=== PATIENT | female | born 1960 | race Caucasian/White ===

== ENCOUNTER 2023-10-06 13:44 | Outpatient (OUT) | payer OTHER, SELFPAY ==
--- NOTE | 2023-10-06 | MM_ITS ---
Patient Name: MATTHEW FRANCISCO MR#: [id number] : 1960 Exam Date: 10/06/2023 Ordering Doctor: DR MICHELLE DESAI M.D. RADIOLOGY REPORT PROCEDURE: MM TOMOSYNTHESIS SCREENING BI COMPARISON: MG MAMM SCREEN 3D DARIA CAD, 08/11/2021. MG MAMM SCREEN DARIA W CAD, 05/01/2019. INDICATIONS: Screening mammogram Calculator Name NCI Breast Cancer Risk Assessment Tool 5 Year Breast Cancer Risk 1.70% Lifetime Breast Cancer Risk 7.00% Personal Breast Cancer No Personal Ovarian Cancer No Treatments None Family Cancers None LOCATION: [facility] BREAST COMPOSITION: The breasts are heterogeneously dense,which may obscure small masses. FINDINGS: DIAGNOSTIC CATEGORY 1--NEGATIVE. NO CHANGE FROM COMPARISON ASSESSMENT. Scattered benign-appearing calcifications are present. RIGHT BREAST: No significant suspicious finding. LEFT BREAST: No significant suspicious finding. RECOMMENDATIONS: ROUTINE MAMMOGRAM AND CLINICAL EVALUATION IN 12 MONTHS. PLEASE NOTE: A NORMAL MAMMOGRAM DOES NOT EXCLUDE THE POSSIBILITY OF BREAST CANCER. A CLINICALLY SUSPICIOUS PALPABLE LUMP SHOULD BE BIOPSIED. Dictated by: Ady Waggoner MD on 10/09/2023 at 08:00 Approved by: Ady Waggoner MD on 10/09/2023 at 08:01
== END 2023-10-06 13:45 | disposition home or self-care (01) ==
LOC: MAMMO 13:45
PROVIDERS: PCP Internal Medicine; Visit Provider Internal Medicine
DX: Z12.31 Encounter for screening mammogram for malignant neoplasm of breast (principal)
CPT/HCPCS: 77063; 77067

== ENCOUNTER 2024-02-14 07:14 | Outpatient (OUT) | payer OTHER, SELFPAY ==
--- NOTE | 2024-02-14 | XR_ITS ---
The [address] [address] Patient Name: MATTHEW FRANCISCO MRN: [id number] date: 1960 Sex: F Assigned Patient Location: [facility] Current Patient Location: Accession/Order Number: [id number] Exam Date: 02/14/2024 07:35 Report Date: 02/16/2024 07:44 At the request of: MICHELLE DESAI Procedure: XR chest 2V PROCEDURE: XR chest 2V DATE: 02/14/2024 7:35 AM EST COMPARISONS: 08/17/2021 CLINICAL INDICATION: 63 years Female Cough FINDINGS: The cardiomediastinal silhouette and pulmonary vasculature are within normal limits. There is some chronic changes of the right lung base stable from previous exam. This results in slight tenting of the right hemidiaphragm. The lungs are otherwise clear. There is no evidence of pleural effusion or pneumothorax. XR/XR chest 2V IMPRESSION: Chronic lung changes right lung base, stable. Chest radiograph is otherwise within normal limits. Electronically authenticated by: KATELIN CARTER Date: 02/16/2024 07:44
== END 2024-02-14 07:15 | disposition home or self-care (01) ==
LOC: RAD 07:16
PROVIDERS: PCP Internal Medicine; Visit Provider Internal Medicine
DX: J43.1 Panlobular emphysema (principal); R63.4 Abnormal weight loss; R05.3 Chronic cough
CPT/HCPCS: 71046

== ENCOUNTER 2024-05-01 10:27 | Inpatient (IN) | payer OTHER, SELFPAY ==
[2024-05-01] VITALS (12 sets, daily range): BP systolic 115–161; BP diastolic 59–98; PULSE 90–101; TEMP 36.4–36.7; O2SAT 90–100; BMI 25.8; BMI 22.1
--- NOTE | 2024-05-01 10:44 | ECG_ITS ---
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
--- OUTSIDE RECORDS SUMMARY | 2024-05-01 10:50 | XMS_ITS | CCD ---
Author Organization [facility] Care Team Providers Care Corn Crop Supervisor Name Role Phone Jacob Frances Unavailable BAILEY Lee Primary Care Provider Colin Mann Attending Provider Hi, DR Jeffers Consulting Unavailable GISELLE, DR MARTINEZ Primary Care Unavailable SEA KAHN Attending Unavailable CRISS, SEA Admitting Unavailable SEA KAHN Consulting Unavailable BRENNEN, DR SHERON Marin Admitting Unavailable DORIAN, DR KURT Partida Consulting Unavailable GISELLE, DR MARTINEZ Primary Care Unavailable BRENNEN, DR SHERON Marin Attending Unavailable HEMJOSE, DR SHERON Marin Consulting Unavailable GISELLE, DR MARTINEZ Attending Unavailable GISELLE, DR MARTINEZ Consulting Unavailable GISELLE, DR MARTINEZ Primary Care Unavailable GISELLE, DR MARTINEZ Admitting Unavailable Hi, DR Jeffers Consulting Unavailable ANJEL, DR MARK Attending Unavailable ANJEL, DR MARK Admitting Unavailable GISELLE, DR MARTINEZ Primary Care Unavailable JUSTIN OSUNA Consulting Unavailable Colin Lee MD Primary Care Provider Colin Mann Attending Unavailable Colin Mann Admitting Unavailable Colin Lee Primary Care Unavailable SHERON HUTTON Attending Unavailable COLIN LEE Attending Unavailable SHERON HUTTON Attending Unavailable COLIN LEE Attending Unavailable COLIN LEE Attending Unavailable COLIN LEE Attending Unavailable COLIN LEE Attending Unavailable Allergies Allergy Classification Reported Allergen(s) Allergy Type Date of Onset Reaction(s) Facility (3 sources) Esomeprazole Drug Allergy 04-18-19 25 Unknown, Unknown Reaction [facility] (2 sources) Penicillins (Antibiotic) Propensity to adverse reactions anaphylaxis [facility] [employer] Other (1 source) Esomeprazole Drug Allergy 04-18-19 14 [facility] (2 sources) Penicillins Drug allergy (disorder) 12-12-20 13 anaphylaxis [facility] (11 sources) Esomeprazole Drug Allergy 09-08-19 23 Unknown [facility] (11 sources) Penicillin G Drug Allergy 09-08-19 23 Unknown [facility] (1 source) Esomeprazole Drug Allergy 02-08-20 [facility] (1 source) Penicillins Drug allergy (disorder) 02-08-20 [facility] Medications Current Medications Medication Drug Class(es) Dates Sig (Normalized) Sig (Original) acetaminophen 325 mg / HYDROcodone bitartrate 10 mg oral tablet (20 sources) Opioid Agonist Start: 04-18-2024 Hydrocodone-Acetam inophen 10-325 mg tablet Active 1 TAB PO as needed April 18, 2024 12:00am Start: 10-23-2023 End: 05-23-2024 take 1 tablet by mouth every six hours for pain HYDROcodone-acetaminophen ([place]) 10-325 MG tablet Indications: Generalized osteoarthrosis, involving multiple sites , Degenerative disc disease, lumbar Take 1 tablet by mouth every 6 (six) hours if needed for severe pain 120 tablet 04/23/2024 05/23/2024 Active Start: 04-17-2023 End: 06-16-2023 take 1 tablet by mouth every six hours for pain HYDROcodone-acetaminophen ([place]) 10-325 MG tablet Indications: Generalized osteoarthrosis, involving multiple sites , Degenerative disc disease, lumbar Take 1 tablet by mouth every 6 (six) hours if needed for severe pain 120 tablet 0 05/17/2023 06/16/2023 Active Vicodin Active [id number] 200 actuat albuterol 0.09 mg/actuat metered dose inhaler (20 sources) beta2-Adrenergic Agonist Start: 04-18-2024 Albut bertha Sulfate 2.5 mg /3 mL (0.083 %) solution for nebulization Active 2.5 MG INHALATION April 18, 2024 12:00am Start: 04-18-2024 Albuterol Sulf ate 90 mcg/actuation HFA aerosol inhaler Active INHALATION April 18, 2024 12:00am Start: 10-02-2023 take 2 puff(s) by mo ut every six hours as needed albuterol HFA 90 mcg/act inhaler Indications: Panlobular emphysema (CMS/HCC) INHALE 2 PUFFS BY MOUTH EVERY 6 HOURS NEEDED 2.5 g 5 10/02/2023 Active Start: 04-06-2023 take 2 puff(s) by mo uth every six hours as needed albuterol HFA 90 mcg/act inhaler Indications: Panlobular emphysema (CMS/HCC) INHALE 2 PUFFS BY MOUTH EVERY 6 HOURS NEEDED 18 g 5 04/06/2023 Active Start: 10-06-2022 End: 02-05-2024 albuterol (2.5 MG/3ML) 0.083 % nebulizer solution Indications: Panlobular emphysema (CMS/HCC) Take 3 mL (2.5 mg) by nebulization in the morning and 3 mL (2.5 mg) in the evening and 3 mL (2.5 mg) before bedtime. 75 mL 3 02/05/2024 Active amLODIPine 5 mg / olmesartan medoxomil 20 mg oral tablet (14 sources) Dihydropyridine Calcium Channel Harley, Angiotensin 2 Receptor Harley Start: 06-29-2023 take 1 tablet by mouth once daily amLODIPine-olmesartan ([place]) 5-20 MG tablet Indications: Benign essential hypertension (CMS/HCC) Take 1 tablet by mouth Daily 100 tablet 3 06/29/2023 Active amLODIPine-olmes chon ([place]) 5-20 MG tablet Take by mouth Daily. 0 Active take 1 tablet by mouth once alise y Arabella 5-20 MG 1 tablet Orally Once a day Active Biotin (2 sources) Biotin Active cyclobenzaprine hydrochloride 10 mg oral tablet (13 sources) Muscle Relaxant take 1 tablet by mouth every eight hours as needed cyclobenzaprine (Flexeril) 10 MG tablet Take 10 mg by mouth every 8 (eight) hours if needed for muscle spasms. Active 168 hr estradiol 0.67868 mg/hr transdermal system (12 sources) Estrogen Start: 04-18-19 25 Estradiol 0.05 mg/24 hr patch weekly Active TRANSDERML every week as needed April 18, 2024 12:00am Start: 11-06-2023 estradiol (Cli rad) 0.05 MG/24HR Indications: History of hysterectomy APPLY 1 PATCH TO SKIN EVERY WEEK *3 WEEKS ON AND 1 WEEK OFF* 4 patch 5 11/06/2023 Active Start: 05-09-2023 estradiol (Cli rad) 0.05 MG/24HR Indications: History of hysterectomy APPLY 1 PATCH TO SKIN EVERY WEEK *3 WEEKS ON AND 1 WEEK OFF* 4 patch 5 05/09/2023 Active 30 actuat fluticasone furoate 0.1 mg/actuat / umeclidinium 0.0625 mg/actuat / vilanterol 0.025 mg/actuat dry powder inhaler (11 sources) Anticholinergic, Corticosteroid, beta2-Adrenergic Agonist take 1 puff(s) by inhalation once daily Ynlfsdqdcxq-Wonfaairr-Fadjkn (Trelegy Ellipta) 100-62.5-25 MCG/ACT aerosol powder Inhale 1 puff 1 (one) time each day at the same time. Active gabapentin 100 mg oral capsule (1 source) Anti-epileptic Agent Star t: 07-03 23 take 2 capsules by mouth once daily in the evening gabapentin (Neurontin) 100 MG capsule Take 100 mg by mouth See administration instructions. 1 QAM 2 QPM 0 07/27/2022 Active ipratropium bromide 0.042 mg/actuat metered dose nasal spray (13 sources) Anticholinergic Star t: 04-04 25 take 1 spray(s) nasal route in the morning ipratropium (Atrovent) 0.06 % nasal spray Indications: Panlobular emphysema (CMS/HCC) Administer 1 spray into each nostril in the morning and 1 spray before bedtime. 15 mL 2 04/23/2024 Active Start: 04-18-2024 take 1 spray(s) nasa l route twice daily Ipratropium [place] 21 mcg (0.03 %) spray,non-aerosol Active 2 SPRAY INTRANASAL Twice daily April 18, 2024 12:00am administer into each nostril Start: 12-07-2022 End: 04-23-2024 take 1 spray(s) nasal route in the morning ipratropium (Atrovent) 0.06 % nasal spray Indications: Panlobular emphysema (CMS/HCC) Administer 1 spray into each nostril in the morning and 1 spray before bedtime. 15 mL 2 12/07/2022 04/23/2024 Discontinued (Reorder) meclizine hydrochloride 12.5 mg oral tablet (12 sources) Antiemetic Start: 04-18-2024 take 2 tablets by mouth once as needed Meclizine 12.5 mg tablet Active 25 MG PO Once as needed April 18, 2024 12:00am take 1 tablet by perla four times daily as needed for dizziness meclizine (Antivert) 12.5 MG tablet Take 12.5 mg by mouth 4 (four) times a day as needed for dizziness. Active metoprolol tartrate 25 mg oral tablet (11 sources) beta-Adrenergic Harley take 1 tablet by mouth every eight hours as needed metoprolol tartrate (Lopressor) 25 MG tablet Take 25 mg by mouth every 8 (eight) hours if needed (palpitations). Active naproxen 375 mg oral tablet (14 sources) Nonsteroidal Anti-inflammatory Drug Start: 04-18-19 take 3 tablets by mouth once daily Naproxen 375 mg tablet Active 1125 MG PO Daily April 18, 2024 12:00am Start: 11-08-2023 take 1 tablet by perla twice daily at mealtime naproxen (Naprosyn) 375 MG tablet Indications: Degenerative disc disease, lumbar TAKE 1 TABLET BY MOUTH TWICE A DAY WITH FOOD FOR 30 DAYS 60 tablet 5 11/08/2023 Active Start: 04-12-2023 take 1 tablet by perla twice daily at mealtime naproxen (Naprosyn) 375 MG tablet Indications: Degenerative disc disease, lumbar TAKE 1 TABLET BY MOUTH TWICE A DAY WITH FOOD FOR 30 DAYS 60 tablet 5 04/12/2023 Active take 2 tablets by mo [facility] every twenty-four hours Naproxen 375 MG 2 tablet Orally ONCE A DAY Active ondansetron 4 mg oral tablet (12 sources) Serotonin-3 Receptor Antagonist Start: 01-15-2024 take 1 tablet by mouth every eight hours as needed ondansetron (Zofran) 4 MG tablet Indications: Gastroesophageal reflux disease, unspecified whether esophagitis present TAKE 1 TABLET BY MOUTH EVERY 8 HOURS NEEDED 60 tablet 5 01/15/2024 Active Start: 03-20-2023 take 1 tablet by perla every eight hours as needed ondansetron (Zofran) 4 MG tablet Indications: Gastroesophageal reflux disease, unspecified whether esophagitis present TAKE 1 TABLET BY MOUTH EVERY 8 HOURS NEEDED 60 tablet 5 03/20/2023 Active salt tab 4 g tablet (1 source) Start: 04-18-2024 salt tab 4 g t ablet Active PO Once April 18, 2024 12:00am simvastatin 20 mg oral tablet (14 sources) HMG-CoA Reductase Inhibitor Start: 10-09-2023 take 1 tablet by mouth once daily simvastatin (Zocor) 20 MG tablet Indications: Mixed hyperlipidemia (CMS/HCC) TAKE 1 TABLET BY MOUTH EVERY DAY 30 tablet 13 10/09/2023 Active Start: 10-04-2022 take 1 tablet by perla th once daily simvastatin (Zocor) 20 MG tablet Indications: Mixed hyperlipidemia (CMS/HCC) TAKE 1 TABLET BY MOUTH EVERY DAY 100 tablet 3 10/04/2022 Active Simvastatin 20 M G 1 tablet every evening Orally Once a day for 30 day(s) Active Sod Picosulf-Mag Ox-Citric Ac (1 source) Start: 04-18-2024 take 1 dose by mouth once daily Sod Picosulf-Mag Ox-Citric Ac (Clenpiq) 10 mg-3.5 gram- 12 gram/175 mL solution Active 175 ML PO Daily 350 0 April 18, 2024 12:00am take first dose at 3PM evening before colonoscopy; 2nd dose at 9pm the night before colonoscopy sodium chloride 1000 mg oral tablet (11 sources) take 4 tablets by mouth in the morning sodium chloride 1 g tablet Take 4 tablets by mouth in the morning. Active Vitamin B12 1000 MCG (2 sources) take 1 tablet by mouth once daily Vitamin B12 1000 MCG 1 tablet Orally Once a day Active Vitamin D (Cholecalciferol) 1000 UNIT (2 sources) take 1 capsule by mouth once daily Vitamin D (Cholecalciferol) 1000 UNIT 1 capsule Orally Once a day Active Problems Active Problems Problem Classification Problem Date Documented Da te Episodic/Chronic Anxiety disorders (11 sources) Anxiety disorder; Translations: [Anxiety disorder, unspecified] Onset: 3 09-07-2022 Chronic Biliary tract disease (13 sources) Obstruction of bile duct; Translations: [Obstruction of bile duct] Onset: 3 09-07-2022 Chronic Cardiac dysrhythmias (11 sources) Paroxysmal supraventricular tachycardia; Translations: [PSVT (paroxysmal supraventricular tachycardia)] Onset: 3 09-07-2022 Chronic Chronic obstructive pulmonary disease and bronchiectasis (16 sources) Pulmonary emphysema; Translations: [Emphysema, unspecified] Onset: 3 09-07-2022 Chronic Disorders of lipid metabolism (13 sources) Pure hypercholesterolemia, unspecified; Translations: [Mixed hyperlipidemia] Onset: 2 09-07-2022 Chronic Essential hypertension (13 sources) Essential (primary) hypertension; Translations: [Benign essential hypertension] Onset: 2 09-07-2022 Chronic Fracture of lower limb (4 sources) Other fracture of right lower leg, initial encounter for closed fracture; Translations: [OTH FX RT LOWER LEG INITIAL CLOS FX] Onset: 2 Episodic Miscellaneous mental health disorders (11 sources) Psychosomatic factor in physical condition; Translations: [Psychological and behavioral factors associated with disorders or diseases classified elsewhere] Onset: 3 09-07-2022 Chronic Nonmalignant breast conditions (11 sources) Fibrocystic disease of breast; Translations: [Diffuse cystic mastopathy of unspecified breast] Onset: 3 09-07-2022 Chronic Nutritional deficiencies (11 sources) Vitamin D deficiency; Translations: [Vitamin D deficiency, unspecified] Onset: 3 09-07-2022 Chronic Osteoarthritis (20 sources) Degenerative joint disease involving multiple joints; Translations: [Polyosteoarthritis, unspecified] Onset: 3 05-17-2023 Chronic Other connective tissue disease (1 source) Musculoskeletal pain; Translations: [Myalgia, other site] 04-18-2024 Episodic Other connective tissue disease (1 source) Myalgia, other site; Translations: [Myalgia and myositis, unspecified] 04-18-2024 Episodic Other gastrointestinal disorders (3 sources) Diarrhea, unspecified; Translations: [Diarrhea] Onset: 2 Episodic Other gastrointestinal disorders (5 sources) Diarrhea; Translations: [Diarrhea, unspecified] 02-08-2024 Episodic Other gastrointestinal disorders (1 source) Altered bowel function; Translations: [Change in bowel habit] 04-18-2024 Episodic Other gastrointestinal disorders (1 source) Change in bowel habit; Translations: [Other symptoms involving digestive system] 04-18-2024 Episodic Other lower respiratory disease (4 sources) Chronic cough; Translations: [Chronic cough] 02-08-2024 Episodic Other nervous system disorders (11 sources) Mononeuritis; Translations: [Mononeuropathy, unspecified] Onset: 3 09-07-2022 Chronic Other nervous system disorders (11 sources) Chronic pain; Translations: [Other chronic pain] Onset: 3 09-07-2022 Chronic Other nutritional; endocrine; and metabolic disorders (4 sources) Weight loss; Translations: [Abnormal weight loss] 02-08-2024 Episodic Other upper respiratory disease (11 sources) Chronic rhinitis; Translations: [Chronic rhinitis] Onset: 3 09-18-2022 Chronic Other upper respiratory infections (20 sources) Chronic sinusitis; Translations: [Chronic sinusitis, unspecified] Onset: 3 09-07-2022 Chronic Spondylosis; intervertebral disc disorders; other back problems (19 sources) Degeneration of lumbar intervertebral disc; Translations: [Other intervertebral disc degeneration, lumbar region] Onset: 3 05-17-2023 Chronic Substance-related disorders (12 sources) Nicotine dependence, cigarettes, uncomplicated; Translations: [Tobacco dependence syndrome] Onset: 2 09-07-2022 Chronic Unclassified (1 source) COUGH, UNSPECIFIED; Translations: [COUGH, UNSPECIFIED] Onset: 2 Past or Other Problems Problem Classification Problem Date Documented Da te Episodic/Chronic Cardiac dysrhythmias (4 sources) Tachycardia, unspecified; Translations: [Palpitations] Onset: 08-17-2021 Episodic Fever of unknown origin (4 sources) Fever, unspecified; Translations: [FEVER UNSPECIFIED] Onset: 04-14-2021 Episodic Fluid and electrolyte disorders (15 sources) Hyponatremia; Translations: [Hypo-osmolality and hyponatremia] Onset: 09-07-2022 09-07-2022 Episodic Other aftercare (1 source) Other chcf (current) drug therapy; Translations: [OTH CORRECTION CURRENT DRUG THERAPY] Onset: 08-18-2021 Episodic Other circulatory disease (11 sources) Orthostatic hypotension; Translations: [Orthostatic hypotension] Onset: 09-07-2022 09-07-2022 Episodic Other disorders of stomach and duodenum (11 sources) Cyclical vomiting syndrome; Translations: [Cyclical vomiting syndrome unrelated to migraine] Onset: 09-07-2022 09-07-2022 Episodic Other lower respiratory disease (11 sources) Dyspnea; Translations: [Shortness of breath] Onset: 09-07-2022 09-07-2022 Episodic Other nervous system disorders (11 sources) Ataxia; Translations: [Ataxia, unspecified] Onset: 09-07-2022 09-07-2022 Episodic Other non-traumatic joint disorders (1 source) Pain in right ankle and joints of right foot; Translations: [Pain in right ankle and joints of right foot] Onset: 03-04-2022 Episodic Other nutritional; endocrine; and metabolic disorders (11 sources) Excessive thirst; Translations: [Polydipsia] Onset: 09-07-2022 09-07-2022 Episodic Other screening for suspected conditions (not mental disorders or infectious disease) (6 sources) CT of abdomen abnormal; Translations: [Abnormal findings on diagnostic imaging of other abdominal regions, including retroperitoneum] Onset: 08-11-2021 Episodic Results Test Name Value Interpretation Reference Range Facility CBC AUTO DIFFon 08-17-2021 BASO # 0.1 103/ul Normal 0.0-0.1 [facility] Comment on above: Performed By: #### C BC #### [facility] [address] [place] [address] Dr. Moshe Fontenot Basophils/100 WBC (Bld) 0.7 % Normal 0.2-2.0 [facility] Comment on above: Performed By: #### C BC #### [facility] [address] [place] [address] Dr. Moshe Fontenot EO # 0.1 103/ul Normal 0.0-0.7 [facility] Comment on above: Performed By: #### C BC #### [facility] [address] [place] [address] Dr. Moshe Fontenot Eosinophils/100 WBC (Bld) 1.5 % Normal 0.9-7.0 [facility] Comment on above: Performed By: #### C BC #### [facility] [address] [place] [address] Dr. Moshe Fontenot Erythrocyte distribution width (RBC) [Ratio] 14.4 % Normal 11.0-15.0 [facility] Comment on above: Performed By: #### C BC #### [facility] [address] [place] [address] Dr. Moshe Fontenot Hematocrit (Bld) [Volume fraction] 43.3 % Normal 36.0-48.0 [facility] Comment on above: Performed By: #### C BC #### [facility] [address] [place] [address] Dr. Moshe Fontenot Hemoglobin (Bld) [Mass/Vol] 14.4 g/dL Normal 12.0-16.0 [facility] Comment on above: Performed By: #### C BC #### [facility] [address] [place] [address] Dr. Moshe Fontenot IG # 0.04 10e3/ul Critically high 0.00-0.03 [place] Comment on above: Performed By: #### C BC #### [facility] [address] [place] [address] Dr. Moshe Fontenot IG % 0.5 % Normal 0.0-0.5 [facility] Comment on above: Performed By: #### C BC #### [facility] [address] [place] [address] Dr. Moshe Fontenot LYMPH # 1.2 103/ul Normal 1.2-3.8 [facility] Comment on above: Performed By: #### C BC #### [facility] [address] [place] [address] Dr. Moshe Fontenot Lymphocytes/100 WBC (Bld) 16.3 % Critically low 20.5-60.0 [facility] Comment on above: Performed By: #### C BC #### [facility] [address] [place] [address] Dr. Moshe Fontenot MANUAL DIFF REQ NO Normal [facility] Comment on above: Performed By: #### C BC #### [facility] [address] [place] [address] Dr. Moshe Fontenot MCH (RBC) [Entitic mass] 29.6 pg Normal 26.7-34.0 [facility] Comment on above: Performed By: #### C BC #### [facility] [address] [address] [address] Moshe Fontenot MCHC (RBC) [Mass/Vol] 33.3 g/dL Normal 29.9-35.2 [facility] Comment on above: Performed By: #### C BC #### [facility] [address] [address] [address] Moshe Fontenot MCV (RBC) [Entitic vol] 88.9 fL Normal 81.0-99.0 [facility] Comment on above: Performed By: #### C BC #### [facility] [address] [place] [address] Dr. Moshe Fontenot MONO # 0.4 103/ul Normal 0.3-0.8 [facility] Comment on above: Performed By: #### C BC #### [facility] [address] [place] [address] Dr. Moshe Fontenot Monocytes/100 WBC (Bld) 5.8 % Normal 1.7-12.0 [facility] Comment on above: Performed By: #### C BC #### [facility] [address] [place] [address] Dr. Moshe Fontenot NEUT # 5.6 103/ul Normal 1.4-6.5 [facility] Comment on above: Performed By: #### C BC #### [facility] [address] [place] [address] Dr. Moshe Fontenot Neutrophils/100 WBC (Bld) 75.2 % Critically high 43.0-75.0 [facility] Comment on above: Performed By: #### C BC #### [facility] [address] [place] [address] Dr. Moshe Fontenot Platelet mean volume (Bld) [Entitic vol] 10.7 fL Normal 9.5-13.5 [facility] Comment on above: Performed By: #### C BC #### [facility] [address] [place] [address] Dr. Moshe Fontenot PLT 165 103/ul Normal 150-450 [facility] Comment on above: Performed By: #### C BC #### [facility] [address] [place] [address] Dr. Moshe Fontenot RBC 4.87 106/ul Normal 4.20-5.40 [facility] Comment on above: Performed By: #### C BC #### [facility] [address] [address] [address] Moshe Fontenot WBC 7.4 103/ul Normal 4.0-11.0 [facility] Comment on above: Performed By: #### C BC #### [facility] [address] [place] [address] Dr. Moshe Fontenot PROF 14(COMP METB)on 022 Albumin [Mass/Vol] 3.6 g/dL Normal 3.4-5.0 [facility] Comment on above: Performed By: #### C MP, HSTROPN #### [facility] [address] [place] [address] Dr. Moshe Fontenot Albumin/Globulin [Mass ratio] 1.2 {ratio} Normal [facility] Comment on above: Performed By: #### C MP, HSTROPN #### [facility] [address] [place] [address] Dr. Moshe Fontenot ALP [Catalytic activity/Vol] 115 U/L Normal 46-116 [facility] Comment on above: Performed By: #### C MP, HSTROPN #### [facility] [address] [place] [address] Dr. Moshe Fontenot ALT [Catalytic activity/Vol] 21 U/L Normal 14-59 [facility] Comment on above: Performed By: #### C MP, HSTROPN #### [facility] [address] [place] [address] Dr. Moshe Fontenot Anion gap [Moles/Vol] 12.7 mmol/L Normal [facility] Comment on above: Performed By: #### C MP, HSTROPN #### [facility] [address] [place] [address] Dr. Moshe Fontenot AST [Catalytic activity/Vol] 21 U/L Normal 15-37 [facility] Comment on above: Performed By: #### C MP, HSTROPN #### [facility] [address] [address] [address] Moshe Fontenot Bilirubin [Mass/Vol] 0.3 mg/dL Normal 0.2-1.0 [facility] Comment on above: Performed By: #### C MP, HSTROPN #### [facility] [address] [place] [address] Dr. Moshe Fontenot Calcium [Mass/Vol] 8.6 mg/dL Normal 8.5-10.1 [facility] Comment on above: Performed By: #### C MP, HSTROPN #### [facility] [address] [place] [address] Dr. Moshe Fontenot Chloride [Moles/Vol] 99 mmol/L Normal 98-107 [facility] Comment on above: Performed By: #### C MP, HSTROPN #### [facility] [address] [place] [address] Dr. Moshe Fontenot CO2 [Moles/Vol] 27.5 mmol/L Normal 21.0-32.0 [facility] Comment on above: Performed By: #### C MP, HSTROPN #### [facility] [address] [place] [address] Dr. Moshe Fontenot Creatinine [Mass/Vol] 0.68 mg/dL Normal 0.55-1.02 [facility] Comment on above: Performed By: #### C MP, HSTROPN #### [facility] [address] [place] [address] Dr. Moshe Fontenot EGFR-AF [facility] >60 Normal >=60 [facility] Comment on above: Performed By: #### C MP, HSTROPN #### [facility] [address] [place] [address] Dr. Moshe Fontenot EGFR-NON AF [facility] >60 Normal >=60 [facility] Comment on above: Performed By: #### C MP, HSTROPN #### [facility] [address] [place] [address] Dr. Moshe Fontenot Globulin (S) [Mass/Vol] 2.9 g/dL Normal [facility] Comment on above: Performed By: #### C MP, HSTROPN #### [facility] [address] [address] [address] Moshe Fontenot Glucose [Mass/Vol] 109 mg/dL Critically high 74-106 T [facility] Comment on above: Performed By: #### C MP, HSTROPN #### [facility] [address] [address] [address] Moshe Fontenot Potassium [Moles/Vol] 4.2 mmol/L Normal 3.5-5.1 [facility] Comment on above: Performed By: #### C MP, HSTROPN #### [facility] [address] [place] [address] Dr. Moshe Fontenot Protein [Mass/Vol] 6.5 g/dL Normal 6.4-8.2 [facility] [facility] Comment on above: Performed By: #### C MP, HSTROPN #### [facility] [address] [place] [address] Dr. Moshe Fontenot Sodium [Moles/Vol] 135 mmol/L Critically low 136-[address] [facility] Comment on above: Performed By: #### C MP, HSTROPN #### [facility] [address] [place] [address] Dr. Moshe Fontenot Urea nitrogen [Mass/Vol] 6.0 mg/dL Critically low 7.0-18.0 [facility] Comment on above: Performed By: #### C MP, HSTROPN #### [facility] [address] [place] [address] Dr. Moshe Fontenot Urea nitrogen/Creatinine [Mass ratio] 8.8 mg/mg Normal [facility] Comment on above: Performed By: #### C MP, HSTROPN #### [facility] [address] [place] [address] Dr. Moshe Fontenot TROPONIN, HIGH SENSITIVITYon 08-17-2021 HSTROP <4.0 Normal 4.0-51.3 [facility] Comment on above: Result Comment: CUT- OFF POINTS HAVE BEEN ESTABLISHED BASED ON THE FOURTH UNIVERSAL DEFINITIONS OF MYOCARDIAL INFARCTION. THE UPPER REFERENCE LIMIT (URL) OF TROPONIN, DEFINED THE 99TH PERCENTILE OF cTnI DISTRIBUTION IN A REFERENCE POPULATION, HAS BEEN CONFIRMED THE DECISION THRESHOLD FOR CA DIAGNOSIS. Performed By: #### C MP, HSTROPN #### [facility] [address] [address] [address] Moshe Fontenot XR CHEST 2 Von 08-17-2021 XR CHEST 2 V EXAMINATION: XR CHEST 2 V HISTORY: COUGH COMPARISON: XR chest 06/26/2018 FINDINGS: LUNGS: Hyperexpanded lungs with stable scarring in right lung base. No acute infiltrates. VASCULATURE: No increased pulmonary vasculature. PLEURA: No pneumothorax, effusion, or pleural thickening. CARDIAC: No cardiomegaly or cardiac silhouette abnormality. MEDIASTINUM: No visible mass or adenopathy. BONES: No fracture or visible bone lesion. OTHER: Negative. IMPRESSION: 1. No acute cardiopulmonary process. 2. Stable COPD and scarring. Electronically authenticated by: ZEYAD DO Date: 2021-08-17 16:13 Normal [facility] MAMM SCREEN 3D DARIA CADon 08-11-2021 MG MAMM SCREEN 3D DARIA CAD Patient: SELENA FRANCISCO Exam Date: 08/11/2021 : 1960 Gender:F Ordering : DR SHERON ANDERSON Admission #: [id number] Family : Order #: [id number] CLICK HERE TO VIEW EXAM RADIOLOGY REPORT PROCEDURE: MAMMOGRAM SCREENING 3D BILATERAL CAD COMPARISON: MG MAMM SCREEN DARIA W CAD, 12/05/2017. MG MAMM SCREEN DARIA W CAD, 05/01/2019. INDICATIONS: Screening mammography Calculator Name NCI Breast Cancer Risk Assessment Tool 5 Year Breast Cancer Risk 1.60% Lifetime Breast Cancer Risk 7.70% Personal Breast Cancer No Personal Ovarian Cancer No Treatments None Family Cancers None LOCATION: [facility] BREAST COMPOSITION: Heterogeneously dense,which may obscure small masses. FINDINGS: DIAGNOSTIC CATEGORY 1--NEGATIVE. NO CHANGE FROM COMPARISON ASSESSMENT. Scattered benign-appearing calcifications are present. RIGHT BREAST: No significant suspicious finding. LEFT BREAST: No significant suspicious finding. RECOMMENDATIONS: ROUTINE MAMMOGRAM AND CLINICAL EVALUATION IN 12 MONTHS. PLEASE NOTE: A NORMAL MAMMOGRAM DOES NOT EXCLUDE THE POSSIBILITY OF BREAST CANCER. A CLINICALLY SUSPICIOUS PALPABLE LUMP SHOULD BE BIOPSIED. Dictated by: Kurt Waggoner MD on 08/11/2021 at 12:59 Approved by: Kurt Waggoner MD on 08/11/2021 at 13:04 Normal [facility] Complete Blood Counton 08-04 Erythrocyte distribution width (RBC) [Ratio] 13.2 % Normal 11.0-15.0 [facility] Specialist Comment on above: Performed By: #### T SH, CBC, FT4, LIPD, FT3, CMP #### [facility] [address], [place] [id number] Hematocrit (Bld) [Volume fraction] 42.6 % Normal 35.0-47.0 [facility] Comment on above: Performed By: #### T SH, CBC, FT4, LIPD, FT3, CMP #### [facility] [address], [place] [id number] Hemoglobin (Bld) [Mass/Vol] 14.0 g/dL Normal 11.6-15.5 [facility] Comment on above: Performed By: #### T SH, CBC, FT4, LIPD, FT3, CMP #### [facility] [address], [place] [id number] MCH (RBC) [Entitic mass] 29.2 pg Normal 27.0-33.0 [facility] Specialist Comment on above: Performed By: #### T SH, CBC, FT4, LIPD, FT3, CMP #### [facility] [address], [place] [id number] MCHC (RBC) [Mass/Vol] 32.9 g/dL Normal 32.0-36.0 [facility] Specialist Comment on above: Performed By: #### T SH, CBC, FT4, LIPD, FT3, CMP #### [facility] [address], [place] [id number] MCV (RBC) [Entitic vol] 89 fL Normal 80-100 [facility] Specialist Comment on above: Performed By: #### T SH, CBC, FT4, LIPD, FT3, CMP #### [facility] [address], [place] [id number] Platelet mean volume (Bld) [Entitic vol] 11.60 fL Normal 7.50-12.50 [facility] Specialist Comment on above: Performed By: #### T SH, CBC, FT4, LIPD, FT3, CMP #### [facility] [address], [place] [id number] Platelets (Bld) [#/Vol] 115 10*3/uL Low 140-400 [facility] Specialist Comment on above: Performed By: #### T SH, CBC, FT4, LIPD, FT3, CMP #### [facility] [address], [place] [id number] RBC (Bld) [#/Vol] 4.80 10*6/uL Normal 3.90-5.20 [facility] Specialist Comment on above: Performed By: #### T SH, CBC, FT4, LIPD, FT3, CMP #### [facility] [address], [place] [id number] RDW-SD 43.3 fL Normal 37.0-50.0 [facility] Specialist Comment on above: Performed By: #### T SH, CBC, FT4, LIPD, FT3, CMP #### [facility] [address], [place] [id number] WBC (Bld) [#/Vol] 6.6 10*3/uL Normal 3.8-11.[address] [facility] Patient Portal [facility] Comment on above: Performed By: #### T SH, CBC, FT4, LIPD, FT3, CMP #### [facility] [address], [place] [id number] Comprehensive Metabolic Pane [facility] 08-04-2021 Albumin [Mass/Vol] 4.3 g/dL Normal 3.6-5.1 [facility] [place] [facility] Comment on above: Performed By: #### T SH, CBC, FT4, LIPD, FT3, CMP #### [facility] [address], [place] [id number] Albumin/Globulin [Mass ratio] 2.0 {ratio} Normal 1.0-2.5 [facility] Patient [facility] Comment on above: Performed By: #### T SH, CBC, FT4, LIPD, FT3, CMP #### [facility] [address], [place] [id number] ALP [Catalytic activity/Vol] 91 U/L Normal 35-119 [facility] Specialist Comment on above: Performed By: #### T SH, CBC, FT4, LIPD, FT3, CMP #### [facility] [address], [place] [id number] ALT [Catalytic activity/Vol] 10 U/L Normal 6-33 [facility] Specialist Comment on above: Result Comment: 03/03 Female reference range changed. Performed By: #### T SH, CBC, FT4, LIPD, FT3, CMP #### [facility] [address], [place] [id number] Anion gap [Moles/Vol] 15 mmol/L Normal 12-20 [facility] Comment on above: Result Comment: Effe ctive 04/08/2019 reference range changed. Performed By: #### T SH, CBC, FT4, LIPD, FT3, CMP #### [facility] [address], [place] [id number] AST [Catalytic activity/Vol] 20 U/L Normal 9-34 [facility] Comment on above: Performed By: #### T SH, CBC, FT4, LIPD, FT3, CMP #### [facility] [address], [place] [id number] BUN/CREA 15 Ratio Normal 6-22 [facility] Comment on above: Performed By: #### T SH, CBC, FT4, LIPD, FT3, CMP #### [facility] [address], [place] [id number] Calcium [Mass/Vol] 9.0 mg/dL Normal 8.6-10.2 [facility] Comment on above: Performed By: #### T SH, CBC, FT4, LIPD, FT3, CMP #### [facility] [address], [place] [id number] Chloride [Moles/Vol] 100 mmol/L Normal 98-107 [facility] Comment on above: Performed By: #### T SH, CBC, FT4, LIPD, FT3, CMP #### [facility] [address], [place] [id number] CO2 [Moles/Vol] 25 mmol/L Normal 20-31 [facility] Comment on above: Performed By: #### T SH, CBC, FT4, LIPD, FT3, CMP #### [facility] [address], [place] [id number] Creatinine [Mass/Vol] 0.7 mg/dL Normal 0.6-1.4 [facility] Comment on above: Performed By: #### T SH, CBC, FT4, LIPD, FT3, CMP #### [facility] [address], [place] [id number] eGFRAA 107 mL/min/1.73m2 Normal >60 [facility] Comment on above: Performed By: #### T SH, CBC, FT4, LIPD, FT3, CMP #### [facility] [address], [place] [id number] eGFRNAA 88 mL/min/1.73m2 Normal >60 [facility] Comment on above: Performed By: #### T SH, CBC, FT4, LIPD, FT3, CMP #### [facility] [address], [place] [id number] Globulin (S) [Mass/Vol] 2.2 g/dL Normal 1.9-3.7 [facility] Comment on above: Performed By: #### T SH, CBC, FT4, LIPD, FT3, CMP #### [facility] [address], [place] [id number] Glucose [Mass/Vol] 84 mg/dL Normal 65-99 [facility] Comment on above: Result Comment: For FASTING Glucose --- ADA reference ranges: Normal 65-99 mg/dl Prediabetes 100-125 Diabetes >/= 126 Performed By: #### T SH, CBC, FT4, LIPD, FT3, CMP #### [facility] [address], [place] [id number] Potassium [Moles/Vol] 4.4 mmol/L Normal 3.5-5.5 [facility] Comment on above: Performed By: #### T SH, CBC, FT4, LIPD, FT3, CMP #### [facility] [address], [place] [id number] Protein [Mass/Vol] 6.5 g/dL Normal 6.1-8.1 [facility] Patient Portal [facility] Comment on above: Performed By: #### T SH, CBC, FT4, LIPD, FT3, CMP #### [facility] [address], [place] [id number] Sodium [Moles/Vol] 135 mmol/L Normal 135-146 [facility] Patient Portal [facility] Comment on above: Performed By: #### T SH, CBC, FT4, LIPD, FT3, CMP #### [facility] [address], [place] [id number] TBIL <0.3 Normal [facility] Comment on above: Performed By: #### T SH, CBC, FT4, LIPD, FT3, CMP #### [facility] [address], [place] [id number] Urea nitrogen [Mass/Vol] 10 mg/dL Normal 7-25 [facility] Comment on above: Performed By: #### T SH, CBC, FT4, LIPD, FT3, CMP #### [facility] [address], [place] [id number] Free T3on 08-04-2021 FT3 2.88 pg/mL Normal 2.00-4.40 [facility] Comment on above: Performed By: #### T SH, CBC, FT4, LIPD, FT3, CMP #### [facility] [address], [place] [id number] Free T4on 08-04-2021 Free T4 [Mass/Vol] 1.23 ng/dL Normal 0.80-1.80 [facility] Patient Portal [facility] Comment on above: Performed By: #### T SH, CBC, FT4, LIPD, FT3, CMP #### [facility] [address], [place] [id number] Lipid Panelon 08-04-2021 Cholesterol [Mass/Vol] 129 mg/dL Normal 125-200 [facility] Comment on above: Result Comment: Low risk < 200mg/dL Borderline risk 201-239 mg/dl High risk > or equal to 240 Performed By: #### T SH, CBC, FT4, LIPD, FT3, CMP #### [facility] [address], [place] [id number] Cholesterol in HDL [Mass/Vol] 48 mg/dL Normal >40 [facility] Specialist Comment on above: Result Comment: High Cardiovascular Risk HDL <40 mg/dL Low Cardiovascular Risk HDL > or equal to 60 mg/dl Performed By: #### T SH, CBC, FT4, LIPD, FT3, CMP #### [facility] [address], [place] [id number] Cholesterol in LDL [Mass/Vol] 61 mg/dL Normal [facility] Specialist Comment on above: Result Comment: LDL ATP III CLASSIFICATION LDL less than 100 mg/dl Optimal LDL 100-129 mg/dl Near or above optimal LDL 130-159 Borderline high LDL 160-189 High LDL greater than 189 mg/dl Very High Performed By: #### T SH, CBC, FT4, LIPD, FT3, CMP #### [facility] [address], [place] [id number] Cholesterol in VLDL [Mass/Vol] 20 mg/dL Normal [facility] Patient Portal [facility] Comment on above: Performed By: #### T SH, CBC, FT4, LIPD, FT3, CMP #### [facility] [address], [place] [id number] Cholesterol.total/Ch olesterol in HDL [Mass ratio] 3 {ratio} Normal [facility] Specialist Comment on above: Performed By: #### T SH, CBC, FT4, LIPD, FT3, CMP #### [facility] [address], [place] [id number] Triglyceride [Mass/Vol] 99 mg/dL Normal 30-150 [facility] Patient Portal [facility] Comment on above: Result Comment: TRIG ATPIII CLASSIFICATIONS TRIG less than 150 mg/dl Normal TRIG 150-199 mg/dl Borderline High TRIG 200-500 mg/dl High TRIG greather than 500 mg/dl Very High Performed By: #### T SH, CBC, FT4, LIPD, FT3, CMP #### [facility] [address], [place] [id number] TSHon 08-04-2021 TSH 1.710 uIU/mL Normal 0.400-4.500 [facility] Patient Portal Concierge Comment on above: Performed By: #### T SH, CBC, FT4, LIPD, FT3, CMP #### [facility] [address] [place] [id number] RESPIRATORY PANEL PLUSon Adenovirus Not detected Normal NOT DETECTED [facility] Comment on above: Performed By: #### R SPLUS #### [facility] [address] [place] [address] Dr. Moshe Alanis. Parapertusis Not detected Normal NOT DETECTED [facility] Comment on above: Performed By: #### R SPLUS #### [facility] [address] [place] [address] Dr. Moshe Alanis. Pertussis Not detected Normal NOT DETECTED [facility] Comment on above: Performed By: #### R SPLUS #### [facility] [address] [place] [address] Dr. Moshe Fontenot Chlamydia Pneumoniae Not detected Normal NOT DETECTED [facility] Comment on above: Performed By: #### R SPLUS #### [facility] [address] [place] [address] Dr. Moshe Fontenot Coronavirus 229E Not detected Normal NOT DETECTED [facility] Comment on above: Performed By: #### R SPLUS #### [facility] [address] [place] [address] Dr. Moshe Fontenot Coronavirus HKU1 Not detected Normal NOT DETECTED [facility] Comment on above: Performed By: #### R SPLUS #### [facility] [address] [place] [address] Dr. Moshe Fontenot Coronavirus NL63 Not detected Normal NOT DETECTED [facility] Comment on above: Performed By: #### R SPLUS #### [facility] [address] [place] [address] Dr. Moshe Fontenot Coronavirus OC43 Not detected Normal NOT DETECTED [facility] Comment on above: Performed By: #### R SPLUS #### [facility] [address] [place] [address] Dr. Moshe Fontenot Influenza A H1 2009 Not detected Normal NOT DETECTED [facility] Comment on above: Performed By: #### R SPLUS #### [facility] [address] [place] [address] Dr. Moshe Fontenot Influenza A H3 Not detected Normal NOT DETECTED [facility] Comment on above: Performed By: #### R SPLUS #### [facility] [address] [place] [address] Dr. Moshe Fontenot Influenza B Not detected Normal NOT DETECTED [facility] Comment on above: Performed By: #### R SPLUS #### [facility] [address] [place] [address] Dr. Moshe Fontenot Metapneumovirus Not detected Normal NOT DETECTED [facility] Comment on above: Performed By: #### R SPLUS #### [facility] [address] [place] [address] Dr. Moshe Fontenot Mycoplas. Pneumoniae Not detected Normal NOT DETECTED [facility] Comment on above: Performed By: #### R SPLUS #### [facility] [address] [place] [address] Dr. Moshe Fontenot Parainfluenza 1 Not detected Normal NOT DETECTED [facility] Comment on above: Performed By: #### R SPLUS #### [facility] [address] [place] [address] Dr. Moshe Fontenot Parainfluenza 2 Not detected Normal NOT DETECTED [facility] Comment on above: Performed By: #### R SPLUS #### [facility] [address] [place] [address] Dr. Moshe Fontenot Parainfluenza 3 Not detected Normal NOT DETECTED [facility] Comment on above: Performed By: #### R SPLUS #### [facility] [address] [place] [address] Dr. Moshe Fontenot Parainfluenza 4 Not detected Normal NOT DETECTED [facility] Comment on above: Performed By: #### R SPLUS #### [facility] [address] [place] [address] Dr. Moshe Fontenot Rhino/Enterovirus Not detected Normal NOT DETECTED [facility] Comment on above: Performed By: #### R SPLUS #### [facility] [address] [place] [address] Dr. Moshe Fontenot RP2 Header 1 RESPIRATORY PANEL: VIRUSES Normal [facility] Comment on above: Performed By: #### R SPLUS #### [facility] [address] [place] [address] Dr. Moshe Fontenot RP2 Header 2 RESPIRATORY PANEL: BACTERIA Normal [facility] Comment on above: Performed By: #### R SPLUS #### [facility] [address] [place] [address] Dr. Moshe Fontenot RSV Not detected Normal NOT DETECTED [facility] Comment on above: Performed By: #### R SPLUS #### [facility] [address] [place] [address] Dr. Moshe Fontenot SARS-CoV-2 (COVID-19) RNA BRITTANY+probe Ql (Unsp spec) Not detected Normal NOT DETECTED [facility] Comment on above: Performed By: #### R SPLUS #### [facility] [address] [place] [address] Dr. Moshe Fontenot Basic Metabolic Profileon Anion gap [Moles/Vol] 9.0 mmol/L Low 10.0-15.0 [facility] Comment on above: Performed By: #### 1 015 #### [facility] Unless Otherwise Noted [address] [address] / COLA #4724/CLIA # [id number] BUN/Cre Ratio 8.3 Ratio Normal 7.0-27.0 Endocrine [facility] Comment on above: Performed By: #### 1 015 #### [facility] Unless Otherwise Noted 2099 [facility] [address] [place] [address] / [facility] #4724/CLIA # [id number] Calcium [Mass/Vol] 9.5 mg/dL Normal 8.4-10.[address] [facility] and Diabetes [facility] Comment on above: Performed By: #### 1 015 #### [facility] Unless Otherwise Noted [address] [address] / [facility] #4724/CLIA # [id number] Chloride [Moles/Vol] 95.0 mmol/L Low 98.0-107.0 [facility] [place] Comment on above: Performed By: #### 1 015 #### [facility] Unless Otherwise Noted [address] [address] / [facility] #4724/CLIA # [id number] CO2 [Moles/Vol] 26.0 mmol/L Normal 22.0-30.0 [facility] Comment on above: Performed By: #### 1 015 #### [facility] Unless Otherwise Noted [address] [address] / [facility] #4724/CLIA # [id number] Creatinine [Mass/Vol] 0.6 mg/dL Normal 0.5-1.0 [facility] Comment on above: Performed By: #### 1 015 #### [facility] Unless Otherwise Noted [address] [address] / COL[facility] #4724/CLIA # [id number] GFR/1.73 sq M predicted among blacks MDRD (S/P/Bld) [Vol rate/Area] 131.6 ml/m1.73 Normal [facility] Comment on above: Performed By: #### 1 015 #### [facility] Unless Otherwise Noted [address] [address] / [facility] #4724/CLIA # [id number] GFR/1.73 sq M predicted among non-blacks MDRD (S/P/Bld) [Vol rate/Area] 108.8 ml/m1.73 Normal [facility] Comment on above: Performed By: #### 1 015 #### [facility] [place] Unless Otherwise Noted [address] [address] / COLA #4724/CLIA # [id number] GFR/1.73 sq M predicted among non-blacks MDRD (S/P/Bld) [Vol rate/Area] 104.0 ml/m1.73 Normal [facility] Comment on above: Performed By: #### 1 015 #### [facility] [place] Unless Otherwise Noted [address] [address] / [facility] #6224/CLIA # [id number] Glucose [Mass/Vol] 93.0 mg/dL Normal 74.0-106.0 [facility] Comment on above: Performed By: #### 1 015 #### [facility] [place] Unless Otherwise Noted [address] [address] / [facility] #2124/CLIA # [id number] Potassium [Moles/Vol] 4.5 mmol/L Normal 3.5-5.1 [facility] Comment on above: Performed By: #### 1 015 #### [facility] Unless Otherwise Noted [address] [address] / COLA #4724/CLIA # [id number] Sodium [Moles/Vol] 130.0 mmol/L Low 137.0-145.0 End [facility] Comment on above: Performed By: #### 1 015 #### [facility] Unless Otherwise Noted [address] [address] / [facility] #4724/CLIA # [id number] Urea nitrogen [Mass/Vol] 5.0 mg/dL Low 7.0-17.0 [facility] Comment on above: Performed By: #### 1 015 #### [facility] Unless Otherwise Noted [address] [address] / [facility] #4724/CLIA # [id number] Basic Metabolic Profileon Anion gap [Moles/Vol] 9.0 mmol/L Low 10.0-15.0 [facility] Comment on above: Performed By: #### 1 015 #### [facility] Unless Otherwise Noted [address] [address] / COLA #4724/CLIA # [id number] BUN/Cre Ratio 15.0 Ratio Normal 7.0-27.0 Endocrine a wa Diabetes [facility] Comment on above: Performed By: #### 1 015 #### [facility] Unless Otherwise Noted [address] [address] / COLA #4724/CLIA # [id number] Calcium [Mass/Vol] 9.9 mg/dL Normal 8.4-10.2 Endocr [facility] Diabetes [facility] Comment on above: Performed By: #### 1 015 #### [facility] Unless Otherwise Noted [address] [address] / COLA #4724/CLIA # [id number] Chloride [Moles/Vol] 97.0 mmol/L Low 98.0-107.0 [facility] [place] Comment on above: Performed By: #### 1 015 #### [facility] Unless Otherwise Noted [address] [address] / COLA #4724/CLIA # [id number] CO2 [Moles/Vol] 28.0 mmol/L Normal 22.0-30.0 [facility] Comment on above: Performed By: #### 1 015 #### [facility] Unless Otherwise Noted [address] [address] / COLA #4724/CLIA # [id number] Creatinine [Mass/Vol] 0.8 mg/dL Normal 0.5-1.0 [facility] Comment on above: Performed By: #### 1 015 #### [facility] Unless Otherwise Noted [address] [address] / COLA #4724/CLIA # [id number] GFR/1.73 sq M predicted among blacks MDRD (S/P/Bld) [Vol rate/Area] 94.7 ml/m1.73 Normal [facility] Comment on above: Performed By: #### 1 015 #### [facility] Unless Otherwise Noted [address] [address] / [facility]A #4724/CLIA # [id number] GFR/1.73 sq M predicted among non-blacks MDRD (S/P/Bld) [Vol rate/Area] 83.9 ml/m1.73 Normal [facility] Comment on above: Performed By: #### 1 015 #### [facility] Unless Otherwise Noted [address] [address] / [facility] #4724/CLIA # [id number] GFR/1.73 sq M predicted among non-blacks MDRD (S/P/Bld) [Vol rate/Area] 78.3 ml/m1.73 Normal [facility] Comment on above: Performed By: #### 1 015 #### [facility] Unless Otherwise Noted [address] [address] / [facility] #4724/CLIA # [id number] Glucose [Mass/Vol] 89.0 mg/dL Normal 74.0-106.[address] [facility] and [facility] Comment on above: Performed By: #### 1 015 #### [facility] Unless Otherwise Noted [address] [address] / COLA #4724/CLIA # [id number] Potassium [Moles/Vol] 5.0 mmol/L Normal 3.5-5.1 [facility] Comment on above: Performed By: #### 1 015 #### [facility] Unless Otherwise Noted [address] [address] / COLA #4724/CLIA # [id number] Sodium [Moles/Vol] 134.0 mmol/L Low 137.0-145.0 [facility] Comment on above: Performed By: #### 1 015 #### [facility] Unless Otherwise Noted [address] [address] / COLA #4724/CLIA # [id number] Urea nitrogen [Mass/Vol] 12.0 mg/dL Normal 7.0-17.0 [facility] Comment on above: Performed By: #### 1 015 #### [facility] Unless Otherwise Noted [address] [place] [address] / MARIA L #4724/CAMERON # [id number] Vital Signs Date Time Vital Sign Value Performing Clinician Facility 04-18-2024 13:47-0500 Body height 172.[address] [facility] 04-18-2024 13:47-0500 Body mass index (BMI) [Ratio] 19 kg/m2 [facility] 04-18-2024 13:47-0500 Body weight 56.[address] [facility] 02-05-2024 08:54-0500 Body height 172.7 cm Colin Lee MD Work Phone: [facility] 02-05-2024 08:54-0500 Body mass index (BMI) [Ratio] 20.68 kg/m2 Colin Lee MD Work Phone: [facility] 02-05-2024 08:54-0500 Body weight 61.69 kg Colin Lee MD Work Phone: [facility] 02-05-2024 08:54-0500 Diastolic blood pressure 70 mm[Hg] Colin Lee MD Work Phone: [facility] 02-05-2024 08:54-0500 Heart rate 72 /min Colin Lee MD Work Phone: [facility] 02-05-2024 08:54-0500 SaO2% (BldA) [Mass fraction] 92 % Colin Lee MD Work Phone: [facility] 02-05-2024 08:54-0500 Systolic blood pressure 138 mm[Hg] Colin Lee MD Work Phone: [facility] 12-25-2023 08:51-0400 Body height 172.7 cm Colin Lee MD Work Phone: [facility] 12-25-2023 08:51-0400 Body mass index (BMI) [Ratio] 19.46 kg/m2 Colin Lee MD Work Phone: [facility] 12-25-2023 08:51-0400 Body weight 58.06 kg Colin Lee MD Work Phone: [facility] 12-25-2023 08:51-0400 Diastolic blood pressure 78 mm[Hg] Colin Lee MD Work Phone: [facility] 12-25-2023 08:51-0400 Heart rate 82 /min Colin Lee MD Work Phone: [facility] 12-25-2023 08:51-0400 SaO2% (BldA) [Mass fraction] 96 % Colin Lee MD Work Phone: [facility] 12-25-2023 08:51-0400 Systolic blood pressure 138 mm[Hg] Colin Lee MD Work Phone: [facility] 02-07-2022 11:30-0500 Body height 172.72 cm [place] Ditty Other [employer] Other 02-07-2022 11:30-0500 Body mass index (BMI) [Ratio] 22.35 kg/m2 [place] Other [employer] Other 02-07-2022 11:30-0500 Body weight 66.68 kg [place] Frances Other [employer] Other 02-07-2022 11:30-0500 Diastolic blood pressure 74 mm[Hg] [place] Frances Other [employer] Other 02-07-2022 11:30-0500 Systolic blood pressure 114 mm[Hg] [place] Other [employer] Other 12-13-2018 17:58-0400 Body weight 65.3 Kg [facility] Comment on above: Performed By: #### 1015 #### [facility] Unless Otherwise Noted [address] [place] [address] / COL[facility] #4724/CLIA # [id number] 05-07-2018 18:41-0500 Body weight 69.4 Kg [facility] Comment on above: Performed By: #### 1015 #### [facility] Unless Otherwise Noted [address] [place] [address] / COLA #4724/CLIA # [id number] Encounters Encounter Date Encounter Type Care Provider Facility Start: 05-01-2024 End: [facility] Start: 05-01-2024 End: 05-01-2024 Eliz brigida Lee MD Work Phone: [facility] Start: 04-23-2024 End: 04-23-2024 Reflauryn Lee MD Work Phone: [facility] Comment on above: Panlobular emphysema (CMS/HCC); Generalized osteoarthrosis, involving multiple sites; Degenerative disc disease, lumbar Start: 04-18-2024 End: 04-18-2024 ambulatory [facility] Work Phone: Start: 04-18-2024 End: 04-18-2024 Patient encounter procedure [facility] Work Phone: Start: 03-21-2024 End: 03-21-2024 Kasi Lee MD Work Phone: [facility] Comment on above: Generalized osteoart hrosis, involving multiple sites; Degenerative disc disease, lumbar Start: 02-22-2024 End: 02-22-2024 Kasi Lee MD Work Phone: [facility] Comment on above: Generalized osteoart hrosis, involving multiple sites; Degenerative disc disease, lumbar Start: 02-05-2024 End: 02-05-2024 Office outpatient visit 25 minutes Colin Lee MD Work Phone: [facility] Comment on above: Diarrhea, unspecifie d type (Primary Dx); Panlobular emphysema (CMS/HCC); Chronic cough; Weight loss Start: 02-05-2024 End: 02-05-2024 ambulatory COLIN LEE Not Available Start: 01-23-2024 End: 01-23-2024 Refill Colin Lee MD Work Phone: [facility] Comment on above: Generalized osteoart hrosis, involving multiple sites; Degenerative disc disease, lumbar Start: 12-25-2023 End: 12-25-2023 Office outpatient visit 25 minutes Colin eLe MD Work Phone: [facility] Comment on above: Weight loss (Primary Dx); Generalized osteoarthrosis, involving multiple sites; Degenerative disc disease, lumbar; Diarrhea, unspecified type; Panlobular emphysema (CMS/HCC); Chronic cough Start: 12-25-2023 End: 12-25-2023 ambulatory COLIN LEE Not Available Start: 11-23-2023 End: 11-23-2023 Refill Colin Lee MD Work Phone: [facility] Comment on above: Generalized osteoart hrosis, involving multiple sites; Degenerative disc disease, lumbar Start: 09-21-2023 End: 09-21-2023 ambulatory COLIN LEE Not Available Start: 08-07-2023 End: 08-07-2023 ambulatory SHERON HUTTON Not Available Start: 06-21-2023 End: 06-21-2023 ambulatory COLIN LEE Not Available Start: 06-06-2023 End: 06-06-2023 ambulatory SHERON HUTTON Not Available Start: 05-17-2023 Refill Sri Sheriff [facility] Comment on above: Generalized osteoart hrosis, involving multiple sites; Degenerative disc disease, lumbar Start: 03-20-2023 End: 03-20-2023 ambulatory COLIN LEE Not Available Start: 03-15-2022 End: 03-16-[address] Zeyad Do Facility:[facility] Start: 03-04-2022 End: 03-04-2022 Departed Referred II Colin Lee Work Phone: [facility] [place] Start: 03-04-2022 End: 03-04-2022 ambulatory II Colin Lee Work Phone: [facility] Work Phone: Start: 02-14-2022 End: 02-14-2022 ambulatory [place] Schaefferleslie Other [employer] Other Start: 02-14-2022 Telephone encounter [place] [facility] Start: 02-07-2022 End: 02-07-2022 ambulatory [place] Schaefferleslie Other [employer] Other Start: 02-07-2022 [facility] visit new patient [place] Schaefferleslie [facility] Start: 08-17-2021 End: 08-17-[address] Zeyad Do Facility:[facility] Start: 08-11-2021 End: 08-12-[address] SHERON HUTTON Facility:[facility] Start: 04-14-2021 End: 04-14-[address] COLIN LEE Facility:[facility] Procedures Date Procedure Procedure Detail Performing Clinician Start: 10-09-2023 Mammography Colin lee MD Work Phone: Start: 09-07-2022 H/O: hysterectomy History of hystere ctomy Sri Sheriff Start: 03-04-2022 X-ray of right ankle II Colin Lee Work Phone: Start: 03-04-2022 X-ray of right foot II Colin Lee Work Phone: Start: 08-11-2021 Mammography Sri crawley Plan of Treatment Date Care Activity Detail Author Start: 10-08-2024 Screening for malign ant neoplasm of breast Mammogram [facility] Start: 05-01-2024 End: 05-01-2024 Patient encounter procedure [facility] Comment on above: Arrived Start: 02-01-2024 End: 02-01-2024 Patient encounter procedure 02/01/2024 8:45 AM EDT Office Visit [facility] [address] [facility] [address] [place] [address] Colin Lee MD [address] [place] [address] [place] [address] [facility] Start: 12-28-2023 End: 12-28-2023 Patient encounter procedure 12/28/2023 8:30 AM EDT Office Visit [facility] [address] [facility] [address] [place] [address] Colin Lee MD [address] [facility] [address] [place] [address] [facility] Start: 12-25-2023 End: 12-24-2024 Comprehensive metabolic 2000 panel - Serum or Plasma Comprehensive metabolic panel Lab Routine Weight loss Diarrhea, unspecified type Expected: 12/25/2023 (Approximate), Expires: 12/24/2024 [facility] Comment on above: Expected: 12/25/2023 (Approximate), Expires: 12/24/2024 Start: 12-25-2023 End: 12-24-2024 TSH W/REFLEX TO FT4 TSH W/REFLEX TO FT4 Lab Routine Weight loss Diarrhea, unspecified type Expected: 12/25/2023 (Approximate), Expires: 12/24/2024 [facility] Work Phone: Comment on above: Expected: 12/25/2023 (Approximate), Expires: 12/24/2024 Start: 12-03-2023 Influenza vaccination Influenza Vacc ine (#1) [facility] Start: 06-21-2023 End: 06-21-2023 Patient encounter procedure 06/21/2023 10:30 AM EDT Office Visit [facility] [address] [place] [address] [place] [address] Colin Lee MD [address] [facility] [address] [place] [address] [facility] Start: 12-02-2022 Influenza vaccination Influenza Vacc ine (#1) [facility] Start: 08-11-2022 Screening for malign ant neoplasm of breast Mammogram [facility] Start: 1960 Screening for malign ant neoplasm of colon [facility] CBC W Auto Different ial panel - Blood CBC and differential Lab Routine Weight loss Diarrhea, unspecified type Ordered: 12/25/2023 [facility] Comment on above: Ordered: 12/25/2023 XR Chest 2 Views XR chest 2 view s Imaging Routine Weight loss Panlobular emphysema (CMS/HCC) Chronic cough Ordered: 12/25/2023 [facility] Comment on above: Ordered: 12/25/2023 Immunizations Immunization Date Immunization Notes Care Provider Fa santiago 02-03-2022 influenza, injectabl e, quadrivalent, preservative free Sri Jaziel [facility] 02-03-2022 influenza virus vacc ine, unspecified formulation Sri [facility] 02-01-2021 influenza, injectabl e, quadrivalent, contains preservative Sri [facility] 01-30-2020 influenza, injectabl e, quadrivalent, preservative free Sri [facility] 10-31-2019 pneumococcal polysac charide vaccine, 23 valent [facility] 01-16-2019 Influenza, injectabl e, Madin [place] [facility], quadrivalent with preservative Sri [facility] 11-05-2018 tetanus toxoid, redu laura diphtheria toxoid, and acellular pertussis vaccine, adsorbed [facility] 01-15-2018 seasonal influenza, intradermal, preservative free Sri Jazeil [facility] 01-11-2017 seasonal influenza, intradermal, preservative free Sri Jaziel [facility] Payers Date Payer Category Payer Private Health Insurance [facility] [id number] 2022 Unknown [id number] 2022 Unknown [id number] 2022 Self-pay [id number] 1960 Unknown [id number] [id number]. 2.593 1959 Unknown [id number] 2.16.840.1.302457.3.579. 2.593 1959 Unknown [id number] 2.16.840.1.393557.3.579. 2.593 1959 Unknown [id number] 2.16.840.1.759086.3.579. 2.593 1959 Unknown [id number] 2.16.840.1.966413.3.579. 2.1259 1959 Unknown [id number] 2.16.840.1.135418.3.579. 2.1259 1959 Unknown [id number] 2.16.840.1.309612.3.579. 2.1259 1959 Unknown [id number] 2.16.840.1.665538.3.579. 2.1259 1959 Unknown [id number] 2.16.840.1.981831.3.579. 2.1259 1959 Unknown [id number] 2.16.840.1.852370.3.579. 2.1259 1959 Unknown [id number] 2.16.840.1.690755.3.579. 2.1259 1959 Unknown [id number] [id number] 1959 Unknown [id number] Unknown [id number] [id number]. 2.531 Social History Date Type Detail Facility Unknown if ever smoked [employer] Other Start: 03-20-2023 End: 02-05-2024 Sex Assigned At [employer] Other Start: 1960 Sex Assigned At Female F [facility] Start: 04-03-1976 Tobacco smoking status [facility] Smokes tobacco daily [facility] Start: 04-03-1976 History of tobacco use Cigarette Smoker [facility] Start: 2022 Tobacco use and exposure Smokeless tobacco non-user [facility] Start: 03-20-2023 End: 02-05-2024 Alcohol intake Ex-drinker (finding) [facility] Start: 03-20-2023 End: 02-05-2024 History of Social function [facility] Start: 1960 Sex Assigned At Not on file N [facility] Start: 04-26-2017 Tobacco smoking status [facility] Smoker (finding) [facility] Start: 04-18-2024 Sex Female (finding) [facility] Clinical Notes 02-07-2022 to 04-23-2024 Telephone Encounter - JUSTIN Cheung - 04/23/2024 9:53 AM ESTTelephone Encounter - JUSTIN Cheung - 04/23/2024 9:53 AM ESTTelephone Encounter - IVETT ESCOBAR - 03/21/2024 10:02 AM EST Note Date & Type Note Facility 04-23-2024 Telephone encount er Note OARRS reviewed, Rx sent into patient's pharmacy. [facility] 04-23-2024 Miscellaneous Notes Formattin g of this note might be different from the original. [facility]RS reviewed, Rx sent into patient's pharmacy. documented in this encounter [facility] 03-21-2024 Telephone encount er Note Last OV 02-04-23 Last refill 02-22-24 [facility] 03-21-2024 Miscellaneous Notes Formattin g of this note might be different from the original. Last OV 02-04-23 Last refill 02-22-24 documented in this encounter [facility] 02-22-2024 Telephone encount er Note OARRS reviewed, Rx sent into patient's pharmacy. [facility] 02-22-2024 Miscellaneous Notes Formattin g of this note might be different from the original. [facility]ARRS reviewed, Rx sent into patient's pharmacy. HYDROcodone-acetaminophen ([place]) 10-325 MG tablet to [facility] documented in this encounter [facility] 02-22-2024 Telephone encount er Note HYDROcodone-acetaminophen ([place]) 10-325 MG tablet to [facility] 02-05-2024 History of Presen t illness Narrative Images from the original note were not included. HPI Results Additional comments: Labs and XR never done Last edited by Paula Nicolas MA on 02/05/2024 7:31 AM. Subjective Patient ID: Selena Francisco is a 63 y.o. female who presents for Results (Labs and XR never done). Pt is here to go over lab results, pt never went to get XR due to lost order Pt was given order again and also faxed ordered Current Outpatient Medications on File Prior to Visit Medication Sig Dispense Refill albuterol HFA 90 mcg/act inhaler INHALE 2 PUFFS BY MOUTH EVERY 6 HOURS NEEDED 2.5 g 5 amLODIPine-olmesartan (Arabella) 5-20 MG tablet Take 1 tablet by mouth Daily 100 tablet 3 cyclobenzaprine (Flexeril) 10 MG tablet Take 10 mg by mouth every 8 (eight) hours if needed for muscle spasms. estradiol (Climara) 0.05 MG/24HR APPLY 1 PATCH TO SKIN EVERY WEEK *3 WEEKS ON AND 1 WEEK OFF* 4 patch 5 Aprvxdqqmca-Hnhuhxmxo-Odvsog (Trelegy Ellipta) 100-62.5-25 MCG/ACT aerosol powder Inhale 1 puff 1 (one) time each day at the same time. HYDROcodone-acetaminophen ([place]) 10-325 MG tablet Take 1 tablet by mouth every 6 (six) hours if needed for severe pain 120 tablet 0 ipratropium (Atrovent) 0.06 % nasal spray Administer 1 spray into each nostril in the morning and 1 spray before bedtime. 15 mL 2 meclizine (Antivert) 12.5 MG tablet Take 12.5 mg by mouth 4 (four) times a day as needed for dizziness. metoprolol tartrate (Lopressor) 25 MG tablet Take 25 mg by mouth every 8 (eight) hours if needed (palpitations). naproxen (Naprosyn) 375 MG tablet TAKE 1 TABLET BY MOUTH TWICE A DAY WITH FOOD FOR 30 DAYS 60 tablet 5 ondansetron (Zofran) 4 MG tablet TAKE 1 TABLET BY MOUTH EVERY 8 HOURS NEEDED 60 tablet 5 simvastatin (Zocor) 20 MG tablet TAKE 1 TABLET BY MOUTH EVERY DAY 30 tablet 13 sodium chloride 1 g tablet Take 4 tablets by mouth in the morning. [DISCONTINUED] albuterol (2.5 MG/3ML) 0.083% nebulizer solution Take 3 mL (2.5 mg) by nebulization in the morning and 3 mL (2.5 mg) in the evening and 3 mL (2.5 mg) before bedtime. 75 mL 3 No current facility-administered medications on file prior to visit. I have reviewed and reconciled the history and medication list with the patient today. Allergies Allergen Reactions Esomeprazole Unknown Penicillin G Unknown Social History Tobacco Use Smoking status: Every Day Types: Cigarettes Start date: 1977 Smokeless tobacco: Never Vaping Use Vaping status: Never Used Substance Use Topics Alcohol use: Not Currently Drug use: Never Family History Problem Relation Name Age of Onset Other (htn) Mother Other (htn) Father Diabetes Father Past Medical History: Diagnosis Date Allergic rhinitis Anxiety Arthritis Bile duct stricture 2018 Cervical cancer (CMS/HCC) Hyperlipemia (CMS/HCC) Hypertension (CMS/HCC) Hyponatremia Nasal septal deviation Past Surgical History: Procedure Laterality Date APPENDECTOMY BREAST BIOPSY 2007 HYSTERECTOMY SPINE SURGERY Visit Vitals BP 138/70 Pulse 72 Ht 5' 8 Wt 136 lb SpO2 92% BMI 20.68 kg/m Smoking Status Every Day BSA 1.72 m Review of Systems Objective Physical Exam Constitutional: General: She is not in acute distress. Appearance: Normal appearance. She is well-developed. HENT: Head: Normocephalic and atraumatic. Right Ear: Tympanic membrane and ear canal normal. Left Ear: Tympanic membrane and ear canal normal. Mouth/Throat: Mouth: Mucous membranes are moist. Eyes: General: No scleral icterus. Conjunctiva/sclera: Conjunctivae normal. Neck: Thyroid: No thyromegaly. Cardiovascular: Rate and Rhythm: Normal rate and regular rhythm. Heart sounds: Normal heart sounds. No murmur heard. Pulmonary: Effort: Pulmonary effort is normal. No respiratory distress. Breath sounds: Normal breath sounds. No wheezing, rhonchi or rales. Abdominal: General: Abdomen is flat. Bowel sounds are increased. There is no distension or abdominal bruit. Palpations: There is mass. Tenderness: There is no abdominal tenderness. Lymphadenopathy: Cervical: No cervical adenopathy. Skin: General: Skin is warm and dry. Neurological: General: No focal deficit present. Mental Status: She is alert and oriented to person, place, and time. Psychiatric: Mood and Affect: Mood normal. Behavior: Behavior normal. Office Visit on 12/25/2023 Component Date Value Ref Range Status WHITE BLOOD CELL COUNT 12/25/2023 5.4 3.8 - 10.8 Thousand/uL Final RED BLOOD CELL COUNT 12/25/2023 4.77 3.80 - 5.10 Million/uL Final HEMOGLOBIN 12/25/2023 14.2 11.7 - 15.5 g/dL Final HEMATOCRIT 12/25/2023 42.4 35.0 - 45.0 % Final MCV 12/25/2023 88.9 80.0 - 100.0 fL Final MCH 12/25/2023 29.8 27.0 - 33.0 pg Final MCHC 12/25/2023 33.5 32.0 - 36.0 g/dL Final RDW 12/25/2023 14.0 11.0 - 15.0 % Final PLATELET COUNT 12/25/2023 147 140 - 400 Thousand/uL Final MPV 12/25/2023 11.8 7.5 - 12.5 fL Final ABSOLUTE NEUTROPHILS 12/25/2023 3,467 1,500 - 7,800 cells/uL Final ABSOLUTE LYMPHOCYTES 12/25/2023 1,334 850 - 3,900 cells/uL Final ABSOLUTE MONOCYTES 12/25/2023 340 200 - 950 cells/uL Final ABSOLUTE EOSINOPHILS 12/25/2023 221 15 - 500 cells/uL Final ABSOLUTE BASOPHILS 12/25/2023 38 0 - 200 cells/uL Final NEUTROPHILS 12/25/2023 64.2 % Final LYMPHOCYTES 12/25/2023 24.7 % Final MONOCYTES 12/25/2023 6.3 % Final EOSINOPHILS 12/25/2023 4.1 % Final BASOPHILS 12/25/2023 0.7 % Final TSH W/REFLEX TO FT4 12/25/2023 3.34 0.40 - 4.50 mIU/L Final Glucose 12/25/2023 104 65 - 139 mg/dL Final Comment: Non-fasting reference interval For someone without known diabetes, a glucose value between 100 and 125 mg/dL is consistent with prediabetes and should be confirmed with a follow-up test. BUN 12/25/2023 8 7 - 25 mg/dL Final Creatinine 12/25/2023 0.73 0.50 - 1.05 mg/dL Final EGFR 12/25/2023 92 > OR = 60 mL/min/1.73m2 Final BUN/CREATININE RATIO 12/25/2023 SEE NOTE: 6 - (calc) Final Comment: Not Reported: BUN and Creatinine are within reference range. Sodium 12/25/2023 135 135 - 146 mmol/L Final Potassium, Bld 12/25/2023 3.9 3.5 - 5.3 mmol/L Final Chloride 12/25/2023 98 98 - 110 mmol/L Final Carbon Dioxide 12/25/2023 30 20 - 32 mmol/L Final Calcium 12/25/2023 9.3 8.6 - 10.4 mg/dL Final PROTEIN, TOTAL 12/25/2023 6.8 6.1 - 8.1 g/dL Final ALBUMIN 12/25/2023 4.1 3.6 - 5.1 g/dL Final GLOBULIN 12/25/2023 2.7 1.9 - 3.7 g/dL (calc) Final ALBUMIN/GLOBULIN RATIO 12/25/2023 1.5 1.0 - 2.5 (calc) Final BILIRUBIN, TOTAL 12/25/2023 0.4 0.2 - 1.2 mg/dL Final ALKALINE PHOSPHATASE 12/25/2023 74 37 - 153 U/L Final AST 12/25/2023 15 10 - 35 U/L Final ALT 12/25/2023 8 6 - 29 U/L Final Assessment/Plan Diagnoses and all orders for this visit: Diarrhea, unspecified type - GI workup is pending. Panlobular emphysema (CMS/HCC) - albuterol (2.5 MG/3ML) 0.083% nebulizer solution; Take 3 mL (2.5 mg) by nebulization in the morning and 3 mL (2.5 mg) in the evening and 3 mL (2.5 mg) before bedtime. Chronic cough - Chest Xray as previously requested (She had not done yet) Weight loss - Improved/resolved. Labs discussed, no cause found. Follow up in about 2 months (around 04/06/2024). documented in this encounter [facility] 01-23-2024 Telephone encount er Note OARRS reviewed, Rx sent into patient's pharmacy. [facility] 01-23-2024 Miscellaneous Notes Formattin g of this note might be different from the original. OARRS reviewed, Rx sent into patient's pharmacy. HYDROcodone-acetaminophen ([place]) 10-325 MG tablet [ [facility] documented in this encounter [facility] 01-23-2024 Telephone encount er Note HYDROcodone-acetaminophen ([place]) 10-325 MG tablet [ [facility] 12-25-2023 History of Presen t illness Narrative Images from the original note were not included. Subjective Patient ID: Selena Francisco is a 63 y.o. female who presents for Hypertension and medication follow up. Hypertension Patient is here for follow-up of elevated blood pressure. She is not exercising Blood pressure is well controlled at home. Cardiac symptoms: none. Patient denies chest pain, claudication, irregular heart beat, near-syncope, palpitations, paroxysmal nocturnal dyspnea, syncope, and tachypnea. Cardiovascular risk factors: hypertension. Use of agents associated with hypertension: none. Current Outpatient Medications on File Prior to Visit Medication Sig Dispense Refill albuterol (2.5 MG/3ML) 0.083% nebulizer solution Take 3 mL (2.5 mg) by nebulization in the morning and 3 mL (2.5 mg) in the evening and 3 mL (2.5 mg) before bedtime. 75 mL 3 albuterol HFA 90 mcg/act inhaler INHALE 2 PUFFS BY MOUTH EVERY 6 HOURS NEEDED 2.5 g 5 amLODIPine-olmesartan (Arabella) 5-20 MG tablet Take 1 tablet by mouth Daily 100 tablet 3 cyclobenzaprine (Flexeril) 10 MG tablet Take 10 mg by mouth every 8 (eight) hours if needed for muscle spasms. estradiol (Climara) 0.05 MG/24HR APPLY 1 PATCH TO SKIN EVERY WEEK *3 WEEKS ON AND 1 WEEK OFF* 4 patch 5 Dgexrtlvhho-Upqqqbaqy-Ubrcvq (Trelegy Ellipta) 100-62.5-25 MCG/ACT aerosol powder Inhale 1 puff 1 (one) time each day at the same time. ipratropium (Atrovent) 0.06 % nasal spray Administer 1 spray into each nostril in the morning and 1 spray before bedtime. 15 mL 2 meclizine (Antivert) 12.5 MG tablet Take 12.5 mg by mouth 4 (four) times a day as needed for dizziness. metoprolol tartrate (Lopressor) 25 MG tablet Take 25 mg by mouth every 8 (eight) hours if needed (palpitations). naproxen (Naprosyn) 375 MG tablet TAKE 1 TABLET BY MOUTH TWICE A DAY WITH FOOD FOR 30 DAYS 60 tablet 5 ondansetron (Zofran) 4 MG tablet TAKE 1 TABLET BY MOUTH EVERY 8 HOURS NEEDED 60 tablet 5 simvastatin (Zocor) 20 MG tablet TAKE 1 TABLET BY MOUTH EVERY DAY 30 tablet 13 sodium chloride 1 g tablet Take 4 tablets by mouth in the morning. [DISCONTINUED] HYDROcodone-acetaminophen ([place]) 10-325 MG tablet Take 1 tablet by mouth every 6 (six) hours if needed for severe pain 120 tablet 0 No current facility-administered medications on file prior to visit. I have reviewed and reconciled the history and medication list with the patient today. Allergies Allergen Reactions Esomeprazole Unknown Penicillin G Unknown Social History Tobacco Use Smoking status: Every Day Types: Cigarettes Start date: 1977 Smokeless tobacco: Never Vaping Use Vaping status: Never Used Substance Use Topics Alcohol use: Not Currently Drug use: Never Family History Problem Relation Name Age of Onset Other (htn) Mother Other (htn) Father Diabetes Father Past Medical History: Diagnosis Date Allergic rhinitis Anxiety Arthritis Bile duct stricture 2018 Cervical cancer (CMS/HCC) Hyperlipemia (CMS/HCC) Hypertension (CMS/HCC) Hyponatremia Nasal septal deviation Past Surgical History: Procedure Laterality Date APPENDECTOMY BREAST BIOPSY 2007 HYSTERECTOMY SPINE SURGERY Visit Vitals BP 138/78 Pulse 82 Ht 5' 8 Wt 128 lb SpO2 96% BMI 19.46 kg/m Smoking Status Every Day BSA 1.67 m Review of Systems Objective Physical Exam Constitutional: General: She is not in acute distress. Appearance: Normal appearance. She is well-developed. HENT: Head: Normocephalic and atraumatic. Right Ear: Tympanic membrane and ear canal normal. Left Ear: Tympanic membrane and ear canal normal. Mouth/Throat: Mouth: Mucous membranes are moist. Eyes: General: No scleral icterus. Conjunctiva/sclera: Conjunctivae normal. Neck: Thyroid: No thyromegaly. Cardiovascular: Rate and Rhythm: Normal rate and regular rhythm. Heart sounds: Normal heart sounds. No murmur heard. Pulmonary: Effort: Pulmonary effort is normal. No respiratory distress. Breath sounds: Normal breath sounds. No wheezing, rhonchi or rales. Abdominal: General: Abdomen is flat. Bowel sounds are increased. There is no distension or abdominal bruit. Palpations: There is mass. Tenderness: There is no abdominal tenderness. Lymphadenopathy: Cervical: No cervical adenopathy. Skin: General: Skin is warm and dry. Neurological: General: No focal deficit present. Mental Status: She is alert and oriented to person, place, and time. Psychiatric: Mood and Affect: Mood normal. Behavior: Behavior normal. Assessment/Plan Diagnoses and all orders for this visit: Weight loss - TSH W/REFLEX TO FT4; Future - CBC and differential - Comprehensive metabolic panel; Future - XR chest 2 views Generalized osteoarthrosis, involving multiple sites - HYDROcodone-acetaminophen ([place]) 10-325 MG tablet; Take 1 tablet by mouth every 6 (six) hours if needed for severe pain - Medication choice and dosage is appropriate for patient's current medical conditions. Patient will continue to be required to be seen in our office at least every three months for monitoring. At each follow up visit I will reassess the patient's need for the medication. Patient is to have this medication prescribed only through this office. Failure to follow the rules and regulations will result in tapering and discontinuation of medications if applicable. Patient verbalized understanding. OARRS Report was reviewed for this patient. Degenerative disc disease, lumbar - HYDROcodone-acetaminophen ([place]) 10-325 MG tablet; Take 1 tablet by mouth every 6 (six) hours if needed for severe pain Diarrhea, unspecified type - TSH W/REFLEX TO FT4; Future - CBC and differential - Comprehensive metabolic panel; Future - Ambulatory referral to Gastroenterology; Future Panlobular emphysema (CMS/HCC) - XR chest 2 views Chronic cough - XR chest 2 views Follow up in about 2 weeks (around 01/08/2024) for Test/Lab Review. documented in this encounter [facility] 11-23-2023 Telephone encount er Note HYDROcodone-acetaminophen ([place]) 10-325 MG tablet [facility] 11-23-2023 Miscellaneous Notes Formattin g of this note might be different from the original. HYDROcodone-acetaminophen ([place]) 10-325 MG tablet [facility] documented in this encounter [facility] 05-17-2023 Telephone encount er Note OARRS reviewed, Rx sent into patient's pharmacy. [facility] 05-17-2023 Miscellaneous Notes Formattin g of this note might be different from the original. OARRS reviewed, Rx sent into patient's pharmacy. documented in this encounter [facility] 03-15-2022 Note PROCEDURE: XR ANKLE RT MIN 3 VIEWS, XR FOOT RT MIN 3 VIEWS HISTORY: Pain of right ankle joint and foot COMPARISON: XR ankle and foot right 03/04/2022 FINDINGS: BONES:Small cortical bulge in fracture from anterior dorsal margin of the talus. SOFT TISSUES:No visible soft tissue swelling. EFFUSION:None visible. OTHER: Negative. IMPRESSION: 1. Stable, mildly displaced cortical avulsion fracture from anterior dorsal margin of the talus near the talonavicular joint. Electronically authenticated by: ZEYAD DO Date: 2022-03-15 17:03 [facility] 03-15-2022 Note PROCEDURE: XR ANKLE RT MIN 3 VIEWS, XR FOOT RT MIN 3 VIEWS HISTORY: Pain of right ankle joint and foot COMPARISON: XR ankle and foot right 03/04/2022 FINDINGS: BONES:Small cortical bulge in fracture from anterior dorsal margin of the talus. SOFT TISSUES:No visible soft tissue swelling. EFFUSION:None visible. OTHER: Negative. IMPRESSION: 1. Stable, mildly displaced cortical avulsion fracture from anterior dorsal margin of the talus near the talonavicular joint. Electronically authenticated by: ZEYAD DO Date: 2022-03-15 17:03 [facility] 02-07-2022 Evaluation note Encounter Date Diagnosis Assessment Notes 07 Nov, 2022 Diarrhea (ICD-10 - R19.7) Obtain records from Dr. Lee. Records release signed by patient. [employer] Other Evaluation noteNo InformationNort [employer] Other Evaluation noteNo assessment information available [facility] Work Phone: Evaluation note* Diagnosis Generalized osteoarthrosis, involving multiple sites Degenerative disc disease, lumbar [facility] Diagnosis Generalized osteoarthrosis, involving multiple sites Degenerative disc disease, lumbar [facility]* Diagnosis Diarrhea, unspecified type- Primary Panlobular emphysema (CMS/HCC) Other emphysema Chronic cough Cough Weight loss Loss of weight [facility]* Diagnosis Generalized osteoarthrosis, involving multiple sites Degenerative disc disease, lumbar [facility]* Diagnosis Weight loss- Primary Loss of weight Generalized osteoarthrosis, involving multiple sites Degenerative disc disease, lumbar Diarrhea, unspecified type Panlobular emphysema (CMS/HCC) Other emphysema Chronic cough Cough [facility]* Diagnosis Onset Date Resolution Status Admit Date Change in bowel habits acute Ja nuary 2024 1:43pm Diarrhea acute April 18, 2024 1:43pm Musculoskeletal pain acute [place] [id number] 1:43pm [facility] Work Phone: Evaluiaalv note* Diagnosis Panlobular emphysema (CMS/HCC) Other emphysema Generalized osteoarthrosis, involving multiple sites Degenerative disc disease, lumbar [facility] N[facility]ative - Reported* Type Description Date Medical History hypertension Medical History high cholesterol Medical History arthritis Medical History LOW SODIUM Medical History CERVICAL CANCER Surgical History arthroscopic knee surgery Surgical History dequoir veins release Surgical History back surgery Surgical History appendectomy Surgical History right ovary and tube removed Surgical History hysterectomy Hospitalization History see above Hospitalization History small bowel obstruction [employer] Other Reason for referral (narrative)* Consultation (Routine) - Pending Review Specialty Diagnoses / Procedures Referred By Ed cuevas Referred To Contact Gastroenterology Diagnoses Diarrhea, unspecified type Procedures ID OFFICE/OUTPATIENT NEW HIGH MDM 60 MINUTES Colin Lee MD [address] [facility] [address] [place] [address] Referral ID Status Reason Start Date Expiration Date Visits Requested Visits Authorized [id number] Pending Review Specialty Services Required 12/25/2023 06/22/2024 1 1 [facility] Summary Purpose Family History Relationship Condition Age at Onset Recorded Date/T chaim father Hypertension Unknown High blood cholesterol Unknown Diabetes mellitus Unknown mother Unknown Heart disease Unknown Hypertension Unknown sister Hypertension Unknown Advance Directives Advance Directive Response Recorded Date/ Time Advance Directives No February 10:11am Chief Complaint and Reason for Visit Chief Complaint Ankle Pain Chief Complaint Admit Date est/referred by Dr Lee- diarrhea Candelario lee 2024 1:43pm Reason for Visit Admit Date Change in bowel habits April 18 1:43pm Diarrhea April 18, 2024 1 :43pm Musculoskeletal pain April 18, 2024 1:43pm Additional Source Comments INFORMATION SOURCE (unrecogn ized section and content) DATE CREATED AUTHOR 12/13/2018 [facility] DATE CREATED AUTHOR AUTHOR'S ORGANIZ ATION 08/06/2021 [facility] dical Specialist DATE CREATED AUTHOR AUTHOR'S ORGANIZ ATION 03/25/[address] [facility] DATE CREATED AUTHOR AUTHOR'S ORGANIZ ATION 12/29/2023 [facility] DATE CREATED AUTHOR AUTHOR'S ORGANIZ ATION 02/06/2024 [facility] dical Specialists EPIC REASON FOR VISIT (unrecogniz ed section and content) Reason Onset Date Comments Med Refill 05/17/2023 Med Refill Reason Onset Date Comments Med Refill 01/23/2024 Reason Comments Results Labs and XR never do ne Reason Onset Date Comments Med Refill 11/23/2023 Reason Comments Hypertension medication follow up Reason Onset Date Comments Med Refill 03/21/2024 Reason Onset Date Comments Med Refill 04/23/2024 Care Teams (unrecognized sec tion and content) Team Status: Active Member Role Status Dates Colin Lee II MD Primary Care Provider Active Team Status: Inactive Member Role Status Dates Colin Lee II MD Primary Care Provider Active Start: April 18, 2024 End: April 18, 2024 Jacob Frances MD Attending Provider Active S tart: April 18, 2024 End: April 18, 2024 Team Status: Inactive Member Role Status Dates Colin Lee II MD Primary Care Provider Active Colin Mann Attending Provider Active [employer] Crop Supervisor Relationship Specialty Start Date End Date Colin Lee MD [address] [facility] [address] [place] [address] PCP - General Internal Medicine 09/07/22 [employer] Supervisor Relationship Specialty Start Date End Date Colin Lee MD [address] [facility] [address] [place] [address] PCP - General Internal Medicine 09/07/22 [employer] Supervisor Relationship Specialty Start Date End Date Colin Lee MD [address] [facility] [address] [place] [address] PCP - General Internal Medicine 09/07/22 [employer] C[employer] Supervisor Relationship Specialty Start Date End Date Colin Lee MD [address] [facility] [address] [place] [address] PCP - General Internal Medicine 09/07/22 [employer] Crop Supervisor Relationship Specialty Start Date End Date Colin Lee MD [address] [facility] [address] [place] [address] PCP - General Internal Medicine 09/07/22 [employer] Crop Supervisor Relationship Specialty Start Date End Date Colin Lee MD [address] [facility] [address] [place] [address] PCP - General Internal Medicine 09/07/22 Goals (unrecognized section and content) Goals may be documented in a n alternate section FOR RECORDS PERTAINING TO PATIENTS WHO ARE OR HAVE BEEN ENROLLED IN A CHEMICAL DEPENDENCY/SUBSTANCEABUSE PROGRAM, SOME INFORMATION MAY BE OMITTED. This clinical summary was aggregated from multiple sources. Caution should be exercised in using it in the provision of clinical care. This summary normalizes information from multiple sources, and as a consequence, information in this document may materially change the coding, format and clinical context of patient data. In addition, data may be omitted in some cases. CLINICAL DECISIONS SHOULD BE BASED ON THE PRIMARY CLINICAL RECORDS. [facility] provides no warranty or guarantee of the accuracy or completeness of information in this document.
--- NOTE | 2024-05-01 10:57 | PC.NURSE ---
Arrives by EMS with duoneb going via mask, pulse ox. is 97% with mask on. Mask removed after breathing treatment and placed on oxygen via NC at 4 LPM and pulse ox. drops to 73%. Simple oxygen mask applied and pulse ox. up to 98%. RT in room at this time preparing patient for high flow oxygen.
--- NOTE | 2024-05-01 11:08 | XR_ITS ---
The [address] [address] Patient Name: MATTHEW FRANCISCO MRN: [id number] date: 1960 Sex: F Assigned Patient Location: ED.MAIN Current Patient Location: ER Accession/Order Number: [id number] Exam Date: 05/01/2024 11:05 Report Date: 05/01/2024 11:21 At the request of: ANITA WAN Procedure: XR chest 1V EXAMINATION: XR chest 1V HISTORY: sob COMPARISON: XR chest 02/14/2024 FINDINGS: LUNGS: Stable chronic scarring within lateral right lung base. No acute infiltrates or mass. VASCULATURE: No increased pulmonary vasculature. PLEURA: No pneumothorax, effusion, or pleural thickening. CARDIAC: No cardiomegaly or cardiac silhouette abnormality. MEDIASTINUM: No visible mass or adenopathy. BONES: No fracture or visible bone lesion. OTHER: Negative. XR/XR chest 1V IMPRESSION: 1. No acute cardiopulmonary process. Stable chest. Electronically authenticated by: GELY MURILLO Date: 05/01/2024 11:21
[2024-05-01 11:09] LABS: Allen Test POSITIVE (POSITIVE); Base Excess ABG 4.3 mmol/L (-2.0-2.0); Oxygen Saturation ABG 90.1 %; pH ABG 7.345 (7.350-7.450)
[2024-05-01 11:10] LABS: Liters per Minute 4; O2 Mode NC; Puncture Site RB
[2024-05-01 11:12] LABS: ABG PCO2 55.1 mmHg (35.0-45.0); PO2 ABG 56.5 mmHg (80.0-100.0)
[2024-05-01 11:13] LABS: Hematocrit 43.7 % (36.0-48.0); Hemoglobin 14.4 g/dL (12.0-16.0); Mean Corpuscular Volume 88.1 fL (81.0-99.0); Mean Platelet Volume 12.1 fL (9.5-13.5); Platelet Count 120 10^3/uL (150-450); Red Blood Count 4.96 10^6/uL (4.20-5.40); Red Cell Distribution Width 13.7 % (11.0-15.0); White Blood Count 12.5 10^3/uL (4.0-11.0)
[2024-05-01 11:20] LABS: Influenza Virus A Antigen Negative; Influenza Virus B Antigen Negative; Internal Control Within Normal Limits; SARS-CoV-2 Ag NEGATIVE (NEGATIVE)
[2024-05-01 11:27] LABS: INR 1.13; Prothrombin Time 11.8 sec (9.0-11.6)
[2024-05-01 11:29] LABS: Band Neutrophils Absolute 0.1 10^3/uL (0.0-0.3); Lymphocytes Absolute Manual 0.75 10^3/uL (1.20-3.80); Monocytes Absolute Manual 0.87 10^3/uL (0.30-0.80); Segmented Neut Absolute Manual 10.75 10^3/uL (1.4-6.5)
[2024-05-01 11:34] LABS: Alanine Aminotransferase 12 U/L (14-59); Albumin Globulin Ratio 0.8; Albumin Level 3.1 g/dL (3.4-5.0); Alkaline Phosphatase 109 U/L (46-116); Anion Gap 7.7; Aspartate Amino Transferase 15 U/L (15-37); BUN Creatinine Ratio 14.6; Bilirubin Total 0.7 mg/dL (0.2-1.0); Carbon Dioxide 31.2 mmol/L (21.0-32.0); Chloride 95 mmol/L (98-107); Estimated GFR (African America >60 (>=60 mL/min/1.73m^2); Estimated GFR (Non-African Ame >60 (>=60 mL/min/1.73m^2); Glucose 102 mg/dL (74-106); Potassium 3.9 mmol/L (3.5-5.1); Sodium 130 mmol/L (136-145); Total Protein 7.1 g/dL (6.4-8.2); Troponin I High Sensitivity 41.1 pg/mL (4.0-51.3)
[2024-05-01 11:48] LABS: Lactate/Lactic Acid 1.4 mmol/L (0.4-2.0)
--- NOTE | 2024-05-01 12:03 | ED.SOB1 ---
HPI - SOB/Dyspnea General Chief Complaint: Shortness of Breath/Dyspnea Stated Complaint: WEAKNESS Time Seen by Provider: 05/01/24 10:43 Source: patient Mode of arrival: ambulance History of Present Illness HPI Narrative: Patient presents to ED complaining of shortness of breath and cough and not feeling well. Patient was sent over to me by her primary doctor, Dr. Greene for hypoxia. Patient has a history of COPD but never requires oxygen. Patient states she has been sick for about a week coming down with bodyaches fevers chills and shortness of breath. She has had a cough but it has been nonproductive. She got in with her doctor because she had to call off work a couple of days this week. Dr. Greene saw her this morning and she had an oxygen saturation of 71% in his office he then called me and said he was sending her over here for shortness of breath hypoxia and respiratory issues. Patient denies any chest pain. She does report that she has been more short of breath lately. She does not have home O2. She received a breathing treatment and Solu-Medrol and route. On arrival she is speaking in short sentences and she was hypoxic in the 70s and she was placed initially on 7 L oxygen. She was doing well on that once she got settled and we bumped her down to 4 L nasal cannula. She was still having increased work of breathing so I switched her over to Vapotherm. ABG was obtained prior to the Vapotherm being started. Related Data Home Medications ?Medication ?Instructions ?Recorded ?Confirmed albuterol sulfate 2.5 mg/3 mL 2.5 mg inhalation Q6H PRN 05/01/24 05/01/24 (0.083 %) solution for nebulization shortness of breath or wheezing albuterol sulfate 90 mcg/actuation 2 puff inhalation Q6H PRN 05/01/24 05/01/24 aerosol inhaler shortness of breath or wheezing amlodipine 5 mg-olmesartan 20 mg 1 tab PO DAILY 05/01/24 05/01/24 tablet estradiol 0.05 mg/24 hr weekly 1 patch transdermal QWEEK 05/01/24 05/01/24 transdermal patch hydrocodone 10 mg-acetaminophen 1 tab PO Q6H PRN pain 05/01/24 05/01/24 325 mg tablet ipratropium bromide 42 mcg (0.06 1 spray intranasal BID 05/01/24 05/01/24 %) nasal spray naproxen 375 mg tablet 375 mg PO Q12H 05/01/24 05/01/24 ondansetron HCl 4 mg tablet 4 mg PO Q8H PRN nausea and vomiting 05/01/24 05/01/24 simvastatin 20 mg tablet 20 mg PO DAILY 05/01/24 05/01/24 Allergies Allergy/AdvReac Type Severity Reaction Status Date / Time Penicillins Allergy Swelling Verified 05/01/24 10:39 of Lip/Tongue/Throat Review of Systems ROS Status of ROS 10 or more systems reviewed and unremarkable except as noted in history and below [facility] Medical History (Updated 05/01/24 @ 12:41 by Mandie Mckeon DO) COPD (chronic obstructive pulmonary disease) ?J44.9 - Chronic obstructive pulmonary disease, unspecified (ICD-10) Hyponatremia ?E87.1 - Hypo-osmolality and hyponatremia (ICD-10) Social History Little interest or pleasure in doing things: not at all Feeling down, depressed, or hopeless: not at all Exam Narrative Exam Narrative: Time Seen: [] Vital Signs: [Per nurse's notes.] General: [Alert] Skin: [Warm, dry, no rash.] Head: [Normocephalic, atraumatic.] Neck: [Supple, trachea midline.] Eye: [Pupils are equal, round and reactive to light, extraocular movements are intact, normal conjunctiva.] Ears, nose, mouth and throat: oral mucosa moist. Cardiovascular: [Regular rate and rhythm, no murmur.] Respiratory: [Diminished breath sounds bilaterally with inspiratory expiratory wheezing and increased work of breathing, mild to moderate respiratory distress.] Gastrointestinal: [Soft, nontender, non distended, normal bowel sounds.] MSK: 5 out of 5 muscle strength x 4 extremities no calf pain or edema Psychiatric: [Cooperative, appropriate mood & affect.] Neurological: [Alert and oriented to person, place, time, and situation, no focal neurological deficit observed.] Constitutional Vital Signs, click to edit/add: Last Vital Signs Temp 98.0 F 05/01/24 10:42 Pulse 99 H 05/01/24 11:54 Resp 20 05/01/24 11:54 BP 115/59 05/01/24 11:54 Pulse Ox 99 05/01/24 11:54 O2 Del Method Vapotherm 05/01/24 11:54 O2 Flow Rate 25 05/01/24 11:03 FiO2 50 05/01/24 11:54 Course Vital Signs Vital signs: Vital Signs Pulse Rate 98 H 05/01/24 10:31 Pulse Oximetry 94 L 05/01/24 10:31 Temperature 98.0 F 05/01/24 10:42 Pulse Rate 99 H 05/01/24 11:54 Respiratory Rate 20 05/01/24 11:54 Blood Pressure 115/59 05/01/24 11:54 Pulse Oximetry 99 05/01/24 11:54 Oxygen Delivery Method Vapotherm 05/01/24 11:54 Oxygen Delivery Flow Rate 05/01/24 11:03 Fraction of Inspired Oxygen 50 05/01/24 11:54 MDM - SOB/Dyspnea MDM Narrative Medical decision making narrative: Patient will be admitted to the hospital for supportive respiratory care. Patient was hypoxic when she was not on oxygen. She is feeling much better with Vapotherm. Most likely a COPD exacerbation with hypoxia. Chest x-ray shows no acute pneumonia and flu RSV and COVID are negative. Patient is plan for admission. Patient does have chronic hyponatremia Differential Diagnosis Differential diagnosis: Likely acute exacerbation of chronic obstructive airways disease and community acquired pneumonia Lab Data Labs: Lab Results 05/01/24 05/01/24 05/01/24 Range/Units 10:50 10:55 10:58 WBC 12.5 H (4.0-11.0) 10^3/uL RBC 4.96 (4.20-5.40) 10^6/uL Hgb 14.4 (12.0-16.0) g/dL Hct 43.7 (36.0-48.0) % MCV 88.1 (81.0-99.0) fL MCH 29.0 (26.7-34.0) pg MCHC 33.0 (29.9-35.2) g/dL RDW 13.7 (11.0-15.0) % Plt Count 120 L (150-450) 10^3/uL MPV 12.1 (9.5-13.5) fL Seg Neuts % (Manual) 86.0 H (43.0-75.0) Band Neutrophils % 1.0 (0-5) % Lymphocytes % (Manual) 6.0 L (20.5-60.0) % Monocytes % (Manual) 7.0 (1.7-12.0) % Eosinophils % (Manual) 0.0 L (0.9-7.0) % Basophils % (Manual) 0.0 L (0.2-2.0) % Neutrophils # (Manual) 10.75 H (1.4-6.5) 10^3/uL Band Neutrophils # 0.1 (0.0-0.3) 10^3/uL Lymphocytes # (Manual) 0.75 L (1.20-3.80) 10^3/uL Monocytes # (Manual) 0.87 H (0.30-0.80) 10^3/uL Eosinophils # (Manual) 0.00 (0.00-0.70) 10^3/uL Basophils # (Manual) 0.00 (0.00-0.10) 10^3/uL PT 11.8 H (9.0-11.6) sec INR 1.13 Puncture Site Rb ABG pH 7.345 L (7.350-7.450) ABG pCO2 55.1 H* (35.0-45.0) mmHg ABG pO2 56.5 L* (80.0-100.0) mmHg ABG HCO3 30.0 H (22.0-26.0) mmol/L ABG O2 Saturation 90.1 % ABG Base Excess 4.3 H (-2.0-2.0) mmol/L Keanu Test Positive (POSITIVE) O2 Liters/Min 4 Sodium 130 L (136-145) mmol/L Potassium 3.9 (3.5-5.1) mmol/L Chloride 95 L (98-107) mmol/L Carbon Dioxide 31.2 (21.0-32.0) mmol/L Anion Gap 7.7 BUN 12.0 (7.0-18.0) mg/dL Creatinine 0.82 (0.55-1.02) mg/dL Est GFR ( Amer) >60 (>=60 mL/min/1.73m^2) Est GFR (Non-Af Amer) >60 (>=60 mL/min/1.73m^2) BUN/Creatinine Ratio 14.6 Glucose 102 (74-106) mg/dL Lactate 1.4 (0.4-2.0) mmol/L Calcium 9.0 (8.5-10.1) mg/dL Total Bilirubin 0.7 (0.2-1.0) mg/dL AST 15 (15-37) U/L ALT 12 L (14-59) U/L Alkaline Phosphatase 109 (46-116) U/L Troponin I High Sens 41.1 (4.0-51.3) pg/mL Total Protein 7.1 (6.4-8.2) g/dL Albumin 3.1 L (3.4-5.0) g/dL Globulin 4.0 g/dL Albumin/Globulin Ratio 0.8 Influenza Type A Ag Negative Influenza Type B Ag Negative SARS-CoV-2 Ag (CV2AG) Negative (NEGATIVE) Imaging Data Chest x-ray: Radiologist's impression: ITS Impressions Chest X-Ray 05/01/24 11:08 IMPRESSION: 1. No acute cardiopulmonary process. Stable chest. Electronically authenticated by: GELY MURILLO Date: 05/01/2024 11:21 ECG Data Attestation: I personally reviewed and interpreted this ECG as follows: Interpretation: EKG INTERPRETATION Time: [] 1032 Rate: [] 98 Rhythm: _ [] Sinus rhythm ST segments: _ [] No acute ST elevation or depression T waves: _ [] Ectopy: _ [] P wave/NV interval: _ [] QRS interval: _ [] QT interval: _ [] Comparison: _ [] Comparison EKG date: [] Performed by: [self] Discharge Plan Discharge Chief Complaint: Shortness of Breath/Dyspnea Clinical Impression: COPD (chronic obstructive pulmonary disease), Hypoxia Patient Disposition: Admitted As Inpatient Time of Disposition Decision: 12:41 Condition: Serious
--- NOTE | 2024-05-01 13:10 | P.HP_ITS ---
HPI H&P: HPI History of Present Illness Chief complaint: WEAKNESS, COPD, HYPOXIA Narrative: Presented to her PCP today due to increasing cough and shortness of breath over the last week, found to have acute hypoxia with O2 sat in the 70s, transferred via squad to the emergency room, off supplemental oxygen in the ER was confirmed into the 70s, patient found to have acute exacerbation of COPD likely secondary to acute bronchitis as pneumonia did not show on initial x-ray When I saw patient up in the medical surgical floor, resting comfortably in bed, maybe a little mild conversational dyspnea Opioid HPI Opioid Management Most Recent Pain and Opioid Data: Last Pain Assessment 05/01/24 18:00 Last ORT Total Score 7 05/01/24 14:06 05/01/24 Last ORT Risk Category Moderate Risk 05/01/24 14:06 05/01/24 Review of Systems ROS Status of ROS 10 or more systems reviewed and unremark able except as noted in history and below PFSH PFS Medical History (Updated 05/01/24 @ 14:19 by Ashleigh Hammer) Cervical cancer ?C53.9 - Malignant neoplasm of cervix uteri, unspecified (ICD-10) COPD (chronic obstructive pulmonary disease) ?J44.9 - Chronic obstructive pulmonary disease, unspecified (ICD-10) Hyponatremia ?E87.1 - Hypo-osmolality and hyponatremia (ICD-10) Surgical History (Updated 05/01/24 @ 14:18 by Ashleigh Hammer) History of spinal surgery ?Z98.890 - Other specified postprocedural states (ICD-10) History of arthroscopy of knee ?Z98.890 - Other specified postprocedural states (ICD-10) History of hysterectomy ?Z90.710 - Acquired absence of both cervix and uterus (ICD-10) Social History Highest level of school completed/degree received: some college, no degree Little interest or pleasure in doing things: not at all Feeling down, depressed, or hopeless: not at all Meds Home Medications and Allergies Home Medications ?Medication ?Instructions ?Recorded ?Confirmed ?Type albuterol sulfate 2.5 mg/3 mL 2.5 mg inhalation Q6H PRN 05/01/24 05/01/24 History (0.083 %) solution for nebulization shortness of breath or wheezing albuterol sulfate 90 mcg/actuation 2 puff inhalation Q6H PRN 05/01/24 05/01/24 History aerosol inhaler shortness of breath or wheezing amlodipine 5 mg-olmesartan 20 mg 1 tab PO DAILY 05/01/24 05/01/24 History tablet estradiol 0.05 mg/24 hr weekly 1 patch transdermal QWEEK 05/01/24 05/01/24 History transdermal patch hydrocodone 10 mg-acetaminophen 1 tab PO Q6H PRN pain 05/01/24 05/01/24 History 325 mg tablet ipratropium bromide 42 mcg (0.06 1 spray intranasal BID 05/01/24 05/01/24 History %) nasal spray naproxen 375 mg tablet 375 mg PO Q12H 05/01/24 05/01/24 History ondansetron HCl 4 mg tablet 4 mg PO Q8H PRN nausea and vomiting 05/01/24 05/01/24 History simvastatin 20 mg tablet 20 mg PO DAILY 05/01/24 05/01/24 History Allergies Allergy/AdvReac Type Severity Reaction Status Date / Time Penicillins Allergy Swelling Verified 05/01/24 10:39 of Lip/Tongue/Throat Exam Constitutional Vital Signs, click to edit/add: Last Vital Signs Temp 98.0 F 05/01/24 10:42 Pulse 99 H 05/01/24 11:54 Resp 20 05/01/24 11:54 BP 115/59 05/01/24 11:54 Pulse Ox 99 05/01/24 11:54 O2 Del Method Vapotherm 05/01/24 11:54 O2 Flow Rate 05/01/24 11:03 FiO2 50 05/01/24 11:54 Documenting provider has reviewed patient's vital signs: yes Common normals: no apparent distress Chest Common normals: inspection of chest normal and palpation of chest normal Respiratory Common normals: no retractions; abnormal respiratory effort Auscultation: rhonchi, wheezes and diminished lung sounds Cardio Common normals: regular rate and regular rhythm Results Labs Labs: Short CBC 05/01/24 Range/Units 10:55 WBC 12.5 H (4.0-11.0) 10^3/uL Hgb 14.4 (12.0-16.0) g/dL Hct 43.7 (36.0-48.0) % Plt Count 120 L (150-450) 10^3/uL BMP 05/01/24 10:55 Sodium 130 L Potassium 3.9 Chloride 95 L Carbon Dioxide 31.2 BUN 12.0 Creatinine 0.82 Glucose 102 Calcium 9.0 Liver Function 05/01/24 Range/Units 10:55 Total Bilirubin 0.7 (0.2-1.0) mg/dL AST 15 (15-37) U/L ALT 12 L (14-59) U/L Alkaline Phosphatase 109 (46-116) U/L Albumin 3.1 L (3.4-5.0) g/dL ABG ABG results: 05/01/24 10:58 ABG pH 7.345 L ABG pCO2 55.1 H* ABG pO2 56.5 L* ABG HCO3 30.0 H ABG O2 Saturation 90.1 ABG Base Excess 4.3 H Assessment and Plan Assessment and Plan (1) Hypoxia: (2) COPD (chronic obstructive pulmonary disease): Plan Admission findings: Acute hypoxic respiratory failure requiring supplemental oxygen, O2 sat 71%, significant leukocytosis with left shift consistent with bacterial process as well as sinus tachycardia and respiratory distress resulting in acute exacerbation of COPD due to acute bronchitis resulting in sepsis. Acute hypoxic respiratory distress due to acute bronchitis resulting in acute exacerbation of COPD and sepsis-steroids, antibiotics, try to obtain sputum culture frequent aerosol treatments. Thrombocytopenia-monitor daily Hyponatremia-monitor this closely she has had severe hyponatremia in the past Admission status: Patient with a severe hypoxia with O2 sat in the 70s, acute exacerbation of COPD secondary to acute bronchitis, medically necessary treatment will span 2 midnights. Inpatient status
[2024-05-01] MEDS: CEFTRIAXONE 1,000 MG in 0.9 % SODIUM CHLORIDE 50 ML 100 MG IV (13:43)
[2024-05-01 14:07] LABS: Magnesium 1.7 mg/dL (1.8-2.4); Thyroid Stimulating Hormone 0.497 uIU/mL (0.358-3.740)
--- OUTSIDE RECORDS SUMMARY | 2024-05-01 14:20 | XMS_ITS | CCD ---
Author Organization [facility] Care Team Providers Care Business Liaison Manager Name Role Phone Jacob Frances Unavailable BAILEY Lee Primary Care Provider [phone] Colin Mann Attending Provider [phone] Hi, DR Jeffers Consulting Unavailable GISELLE, DR SHAW Primary Care Unavailable SEA KAHN Attending Unavailable CRISS, SEA Admitting Unavailable SEA KAHN Consulting Unavailable BRENNEN, DR SHERON Marin Admitting Unavailable DORIAN, DR KURT Partida Consulting Unavailable GISELLE, DR SHAW Primary Care Unavailable BRENNEN, DR SHERON Marin Attending Unavailable HEMJOSE, DR SHERON Marin Consulting Unavailable GISELLE, DR SHAW Attending Unavailable GISELLE, DR SHAW Consulting Unavailable GISELLE, DR SHAW Primary Care Unavailable GISELLE, DR SHAW Admitting Unavailable Hi, DR Jeffers Consulting Unavailable ANJEL, DR MARK Attending Unavailable ANJEL, DR MARK Admitting Unavailable GISELLE, DR SHAW Primary Care Unavailable JUSTIN OSUNA Consulting Unavailable [...] Drug Allergy 04-18-19 25 Unknown, Unknown Reaction [facility] (2 sources) Penicillins (Antibiotic) Propensity to adverse reactions anaphylaxis [facility] Other (1 source) Esomeprazole Drug Allergy 04-18-19 14 [facility] (2 sources) Penicillins Drug allergy (disorder) 12-12-20 13 anaphylaxis [facility] (13 sources) Esomeprazole Drug Allergy 09-08-19 23 Unknown [facility] (13 sources) Penicillin G Drug Allergy 09-08-19 23 Unknown [facility] (1 source) Esomeprazole Drug Allergy 02-08-20 [facility] (1 source) Penicillins Drug allergy (disorder) 02-08-20 [facility] Medications Current Medications Medication Drug Class(es) Dates Sig (Normalized) Sig (Original) acetaminophen 325 mg / HYDROcodone bitartrate 10 mg oral tablet (20 sources) Opioid Agonist Start: 04-18-2024 Hydrocodone-Acetam inophen 10-325 mg tablet Active 1 TAB PO as needed April 18, 2024 12:00am Start: 10-23-2023 End: 05-23-2024 take 1 tablet by mouth every six hours for pain HYDROcodone-acetaminophen (Lamont) 10-325 MG tablet Indications: Generalized osteoarthrosis, involving multiple sites , Degenerative disc disease, lumbar Take 1 tablet by mouth every 6 (six) hours if needed for severe pain 120 tablet 04/23/2024 05/23/2024 Active Start: 04-17-2023 End: 06-16-2023 take 1 tablet by mouth every six hours for pain HYDROcodone-acetaminophen (Lamont) 10-325 MG tablet Indications: Generalized osteoarthrosis, involving multiple sites , Degenerative disc disease, lumbar Take 1 tablet by mouth every 6 (six) hours if needed for severe pain 120 tablet 0 05/17/2023 06/16/2023 Active Vicodin Active [id number] actuat albuterol 0.09 mg/actuat metered dose [...] / olmesartan medoxomil 20 mg oral tablet (16 sources) Dihydropyridine Calcium Channel Harley, Angiotensin 2 [...] Active cyclobenzaprine hydrochloride 10 mg oral tablet (15 sources) Muscle Relaxant take 1 tablet by mouth every eight hours as needed cyclobenzaprine (Flexeril) 10 MG tablet Take 10 mg by mouth every 8 (eight) hours if needed for muscle spasms. Active 168 hr estradiol 0.64160 mg/hr transdermal system (14 sources) Estrogen Start: 04-18-19 25 Estradiol 0.05 [...] / vilanterol 0.025 mg/actuat dry powder inhaler (13 sources) Anticholinergic, Corticosteroid, beta2-Adrenergic Agonist take 1 puff(s) by inhalation once daily Cqrfzubyexu-Xsqppvrja-Pwevqf (Trelegy Ellipta) 100-62.5-25 MCG/ACT aerosol powder Inhale [...] bromide 0.042 mg/actuat metered dose nasal spray (15 sources) Anticholinergic Star t: 04-03 25 take 1 spray(s) nasal route twice daily Ipratropium Dalzell 21 mcg (0.03 %) spray,non-aerosol Active 2 SPRAY INTRANASAL Twice daily April 18, 2024 12:00am administer into each nostril Start: 12-07-2022 End: 04-23-2024 take 1 spray(s) nasal route in the morning ipratropium (Atrovent) 0.06 % nasal spray Indications: Panlobular emphysema (CMS/HCC) Administer 1 spray into each nostril in the morning and 1 spray before bedtime. 15 mL 2 04/23/2024 Active meclizine hydrochloride 12.5 mg oral tablet (14 sources) Antiemetic Start: 04-18-2024 take 2 tablets by mouth once as needed Meclizine 12.5 mg tablet Active 25 MG PO Once as needed April 18, 2024 12:00am take 1 tablet by perla th four times daily as needed for dizziness meclizine (Antivert) 12.5 MG tablet Take 12.5 mg by mouth 4 (four) times a day as needed for dizziness. Active metoprolol tartrate 25 mg oral tablet (13 sources) beta-Adrenergic Harley take 1 tablet by mouth every eight hours as needed metoprolol tartrate (Lopressor) 25 MG tablet Take 25 mg by mouth every 8 (eight) hours if needed (palpitations). Active naproxen 375 mg oral tablet (16 sources) Nonsteroidal Anti-inflammatory Drug Start: 04-18-19 take 3 tablets by mouth once daily Naproxen 375 mg tablet Active 1125 MG PO Daily April 18, 2024 12:00am Start: 11-08-2023 take 1 tablet by perla th twice daily at mealtime naproxen (Naprosyn) 375 MG tablet Indications: Degenerative disc disease, lumbar TAKE 1 TABLET BY MOUTH TWICE A DAY WITH FOOD FOR 30 DAYS 60 tablet 5 11/08/2023 Active Start: 04-12-2023 take 1 tablet by perla th twice daily at mealtime naproxen (Naprosyn) 375 MG tablet Indications: Degenerative disc disease, lumbar TAKE 1 TABLET BY MOUTH TWICE A DAY WITH FOOD FOR 30 DAYS 60 tablet 5 04/12/2023 Active take 2 tablets by mo ut every twenty-four hours Naproxen 375 MG 2 tablet Orally ONCE A DAY Active ondansetron 4 mg oral tablet (14 sources) Serotonin-3 Receptor Antagonist Start: 01-15-2024 take 1 tablet by mouth every eight hours as needed ondansetron (Zofran) 4 MG tablet Indications: Gastroesophageal reflux disease, unspecified whether esophagitis present TAKE 1 TABLET BY MOUTH EVERY 8 HOURS NEEDED 60 tablet 5 01/15/2024 Active Start: 03-20-2023 take 1 tablet by perla th every eight hours as needed ondansetron (Zofran) 4 MG tablet Indications: Gastroesophageal reflux disease, unspecified whether esophagitis present TAKE 1 TABLET BY MOUTH EVERY 8 HOURS NEEDED 60 tablet 5 03/20/2023 Active salt tab 4 g tablet (1 source) Start: 04-18-2024 salt tab 4 g t ablet Active PO Once April 18, 2024 12:00am simvastatin 20 mg oral tablet (16 sources) HMG-CoA Reductase Inhibitor Start: 10-09-2023 take [...] colonoscopy sodium chloride 1000 mg oral tablet (13 sources) take 4 tablets by mouth in [...] Date Documented Da te Episodic/Chronic Anxiety disorders (13 sources) Anxiety disorder; Translations: [Anxiety disorder, unspecified] Onset: 3 09-07-2022 Chronic Biliary tract disease (15 sources) Obstruction of bile duct; Translations: [Obstruction of bile duct] Onset: 3 09-07-2022 Chronic Cardiac dysrhythmias (13 sources) Paroxysmal supraventricular tachycardia; Translations: [PSVT (paroxysmal supraventricular tachycardia)] Onset: 3 09-07-2022 Chronic Chronic obstructive pulmonary disease and bronchiectasis (20 sources) Pulmonary emphysema; Translations: [Emphysema, unspecified] Onset: 3 09-07-2022 Chronic Disorders of lipid metabolism (15 sources) Pure hypercholesterolemia, unspecified; Translations: [Mixed hyperlipidemia] Onset: 2 09-07-2022 Chronic Essential hypertension (15 sources) Essential (primary) hypertension; Translations: [Benign essential hypertension] Onset: 2 09-07-2022 Chronic Fracture of lower limb (4 sources) Other fracture of right lower leg, initial encounter for closed fracture; Translations: [OTH FX RT LOWER LEG INITIAL CLOS FX] Onset: 2 Episodic Miscellaneous mental health disorders (13 sources) Psychosomatic factor in physical condition; Translations: [Psychological and behavioral factors associated with disorders or diseases classified elsewhere] Onset: 3 09-07-2022 Chronic Nonmalignant breast conditions (13 sources) Fibrocystic disease of breast; Translations: [Diffuse cystic mastopathy of unspecified breast] Onset: 3 09-07-2022 Chronic Nutritional deficiencies (13 sources) Vitamin D deficiency; Translations: [Vitamin D [...] cough; Translations: [Chronic cough] 02-08-2024 Episodic Other lower respiratory disease (2 sources) Hypoxia; Translations: [Hypoxemia] 05-01-2024 Episodic Other nervous system disorders (13 sources) Mononeuritis; Translations: [Mononeuropathy, unspecified] Onset: 3 09-07-2022 Chronic Other nervous system disorders (13 sources) Chronic pain; Translations: [Other chronic pain] Onset: 3 09-07-2022 Chronic Other nutritional; endocrine; and metabolic disorders (4 sources) Weight loss; Translations: [Abnormal weight loss] 02-08-2024 Episodic Other upper respiratory disease (13 sources) Chronic rhinitis; Translations: [Chronic rhinitis] Onset: 3 09-18-2022 Chronic Other upper respiratory infections (20 sources) Chronic sinusitis; Translations: [Chronic sinusitis, unspecified] Onset: 3 09-07-2022 Chronic Spondylosis; intervertebral disc disorders; other back problems (20 sources) Degeneration of lumbar intervertebral disc; Translations: [Other intervertebral disc degeneration, lumbar region] Onset: 3 05-17-2023 Chronic Substance-related disorders (14 sources) Nicotine dependence, cigarettes, uncomplicated; Translations: [Tobacco [...] Onset: 04-14-2021 Episodic Fluid and electrolyte disorders (17 sources) Hyponatremia; Translations: [Hypo-osmolality and hyponatremia] Onset: 09-07-2022 09-07-2022 Episodic Other aftercare (1 source) Other chcf (current) drug therapy; Translations: [OTH USP CURRENT DRUG THERAPY] Onset: 08-18-2021 Episodic Other circulatory disease (13 sources) Orthostatic hypotension; Translations: [Orthostatic hypotension] Onset: 09-07-2022 09-07-2022 Episodic Other disorders of stomach and duodenum (13 sources) Cyclical vomiting syndrome; Translations: [Cyclical vomiting syndrome unrelated to migraine] Onset: 09-07-2022 09-07-2022 Episodic Other lower respiratory disease (13 sources) Dyspnea; Translations: [Shortness of breath] Onset: 09-07-2022 09-07-2022 Episodic Other nervous system disorders (13 sources) Ataxia; Translations: [Ataxia, unspecified] Onset: 09-07-2022 09-07-2022 Episodic Other non-traumatic joint disorders (1 source) Pain in right ankle and joints of right foot; Translations: [Pain in right ankle and joints of right foot] Onset: 03-04-2022 Episodic Other nutritional; endocrine; and metabolic disorders (13 sources) Excessive thirst; Translations: [Polydipsia] Onset: 09-07-2022 09-07-2022 Episodic Other screening for suspected conditions (not mental disorders or infectious disease) (6 sources) CT of abdomen abnormal; Translations: [Abnormal findings on diagnostic imaging of other abdominal regions, including retroperitoneum] Onset: 08-11-2021 Episodic Results Test Name Value Interpretation Reference Range Facility CBC AUTO DIFFon 08-17-2021 BASO # 0.1 103/ul Normal 0.0-0.1 [facility] Comment on above: Performed By: #### C BC #### [facility] [address] [place] [address] Dr. Moshe Fontenot Basophils/100 WBC (Bld) 0.7 % Normal 0.2-2.0 [facility] Comment on above: Performed By: #### C BC #### [facility] [address] [place] [place] [address] Dr. Moshe Fontenot EO # 0.1 103/ul Normal 0.0-0.7 [facility] Comment on above: Performed By: #### C BC #### [facility] [address] [place] [place] [address] Dr. Moshe Fontenot Eosinophils/100 WBC (Bld) 1.5 % Normal 0.9-7.0 [facility] Comment on above: Performed By: #### C BC #### [facility] [address] [place] [place] [address] Dr. Moshe Fontenot Erythrocyte distribution width (RBC) [Ratio] 14.4 % Normal 11.0-15.0 [facility] Comment on above: Performed By: #### C BC #### [facility] [address] [place] [address] Dr. Moshe Fontenot Hematocrit (Bld) [Volume fraction] 43.3 % Normal 36.0-48.0 [facility] Comment on above: Performed By: #### C BC #### [facility] [address] [place] [place] [address] Dr. Moshe Fontenot Hemoglobin (Bld) [Mass/Vol] 14.4 g/dL Normal 12.0-16.0 [facility] Comment on above: Performed By: #### C BC #### [facility] [address] [place] [place] [address] Dr. Moshe Fontenot IG # 0.04 10e3/ul Critically high 0.00-0.03 [facility] Comment on above: Performed By: #### C BC #### [facility] [address] [place] [place] [address] Dr. Moshe Fontenot IG % 0.5 % Normal 0.0-0.5 [facility] Comment on above: Performed By: #### C BC #### [facility] [address] [place] [place] [address] Dr. Moshe Fontenot LYMPH # 1.2 103/ul Normal 1.2-3.8 [facility] Comment on above: Performed By: #### C BC #### [facility] [address] [place] [place] [address] Dr. Moshe Fontenot Lymphocytes/100 WBC (Bld) 16.3 % Critically low 20.5-60.0 [facility] Comment on above: Performed By: #### C BC #### [facility] [address] [place] [place] [address] Dr. Moshe Fontenot MANUAL DIFF REQ NO Normal [facility] Comment on above: Performed By: #### C BC #### [facility] [address] [place] [place] [address] Dr. Moshe Fontenot MCH (RBC) [Entitic mass] 29.6 pg Normal 26.7-34.0 [facility] Comment on above: Performed By: #### C BC #### [facility] [address] [place] [place] [address] Dr. Moshe Fontenot MCHC (RBC) [Mass/Vol] 33.3 g/dL Normal 29.9-35.2 [facility] Comment on above: Performed By: #### C BC #### [facility] [address] [address] [address] Moshe Fontenot MCV (RBC) [Entitic vol] 88.9 fL Normal 81.0-99.0 [facility] Comment on above: Performed By: #### C BC #### [facility] [address] [address] [address] Moshe Fontenot MONO # 0.4 103/ul Normal 0.3-0.8 [facility] Comment on above: Performed By: #### C BC #### [facility] [address] [place] [place] [address] Dr. Moshe Fontenot Monocytes/100 WBC (Bld) 5.8 % Normal 1.7-12.0 [facility] Comment on above: Performed By: #### C BC #### [facility] [address] [place] [place] [address] Dr. Moshe Fontenot NEUT # 5.6 103/ul Normal 1.4-6.5 [facility] Comment on above: Performed By: #### C BC #### [facility] [address] [place] [place] [address] Dr. Moshe Fontenot Neutrophils/100 WBC (Bld) 75.2 % Critically high 43.0-75.0 [facility] Comment on above: Performed By: #### C BC #### [facility] [address] [place] [place] [address] Dr. Moshe Fontenot Platelet mean volume (Bld) [Entitic vol] 10.7 fL Normal 9.5-13.5 [facility] Comment on above: Performed By: #### C BC #### [facility] [address] [place] [place] [address] Dr. Moshe Fontenot PLT 165 103/ul Normal 150-450 [facility] Comment on above: Performed By: #### C BC #### [facility] [address] [place] [place] [address] Dr. Moshe Fontenot RBC 4.87 106/ul Normal 4.20-5.40 [facility] Comment on above: Performed By: #### C BC #### [facility] [address] [address] [address] Moshe Fontenot WBC 7.4 103/ul Normal 4.0-11.0 [facility] Comment on above: Performed By: #### C BC #### [facility] [address] [address] [address] Moshe Fontenot PROF 14(COMP METB)on 022 Albumin [Mass/Vol] 3.6 g/dL Normal 3.4-5.0 [facility] Comment on above: Performed By: #### C MP, HSTROPN #### [facility] [address] [address] [address] Moshe Fontenot Albumin/Globulin [Mass ratio] 1.2 {ratio} Normal [facility] Comment on above: Performed By: #### C MP, HSTROPN #### [facility] [address] [place] [place] [address] Dr. Moshe Fontenot ALP [Catalytic activity/Vol] 115 U/L Normal 46-116 [facility] Comment on above: Performed By: #### C MP, HSTROPN #### [facility] [address] [address] [address] Moshe Fontenot ALT [Catalytic activity/Vol] 21 U/L Normal 14-59 [facility] Comment on above: Performed By: #### C MP, HSTROPN #### [facility] [address] [address] [address] Moshe Fontenot Anion gap [Moles/Vol] 12.7 mmol/L Normal [facility] Comment on above: Performed By: #### C MP, HSTROPN #### [facility] [address] [address] [address] Moshe Fontenot AST [Catalytic activity/Vol] 21 U/L Normal 15-37 [facility] Comment on above: Performed By: #### C MP, HSTROPN #### [facility] [address] [place] [address] Dr. Moshe Fontenot Bilirubin [Mass/Vol] 0.3 mg/dL Normal 0.2-1.0 [facility] Comment on above: Performed By: #### C MP, HSTROPN #### [facility] [address] [address] [address] Moshe Fontenot Calcium [Mass/Vol] 8.6 mg/dL Normal 8.5-10.1 [facility] Comment on above: Performed By: #### C MP, HSTROPN #### [facility] [address] [address] [address] Moshe Fontenot Chloride [Moles/Vol] 99 mmol/L Normal 98-107 [facility] Comment on above: Performed By: #### C MP, HSTROPN #### [facility] [address] [place] [address] Dr. Moshe Fontenot CO2 [Moles/Vol] 27.5 mmol/L Normal 21.0-32.0 [facility] Comment on above: Performed By: #### C MP, HSTROPN #### [facility] [address] [place] [address] Dr. Moshe Fontenot Creatinine [Mass/Vol] 0.68 mg/dL Normal 0.55-1.02 [facility] Comment on above: Performed By: #### C MP, HSTROPN #### [facility] [address] [place] [place] [address] Dr. Moshe Fontenot EGFR-AF [place] >60 Normal >=60 [facility] Comment on above: Performed By: #### C MP, HSTROPN #### [facility] [address] [place] [place] [address] Dr. Moshe Fontenot EGFR-NON AF [place] >60 Normal >=60 [facility] Comment on above: Performed By: #### C MP, HSTROPN #### [facility] [address] [place] [address] Dr. Moshe Fontenot Globulin (S) [Mass/Vol] 2.9 g/dL Normal [facility] Comment on above: Performed By: #### C MP, HSTROPN #### [facility] [address] [place] [place] [address] Dr. Moshe Fontenot Glucose [Mass/Vol] 109 mg/dL Critically high 74-106 [facility] Comment on above: Performed By: #### C TRAY, HSTROPN #### [facility] [address] [place] [address] Dr. Moshe Fontenot Potassium [Moles/Vol] 4.2 mmol/L Normal 3.5-5.1 [facility] Comment on above: Performed By: #### C TRAY, HSTROPN #### [facility] [address] [address] [address] Moshe Fontenot Protein [Mass/Vol] 6.5 g/dL Normal 6.4-8.2 [facility] Comment on above: Performed By: #### C TRAY, HSTROPN #### [facility] [address] [place] [place] [address] Dr. Moshe Fontenot Sodium [Moles/Vol] 135 mmol/L Critically low 136-145 Th [facility] Comment on above: Performed By: #### C TRAY, HSTROPN #### [facility] [address] [place] [address] Dr. Moshe Fontenot Urea nitrogen [Mass/Vol] 6.0 mg/dL Critically low 7.0-18.0 [facility] Comment on above: Performed By: #### C TRAY, HSTROPN #### [facility] [address] [place] [address] Dr. Moshe Fontenot Urea nitrogen/Creatinine [Mass ratio] 8.8 mg/mg Normal [facility] Comment on above: Performed By: #### C MP, HSTROPN #### [facility] [address] [place] [address] Dr. Moshe Fontenot TROPONIN, HIGH SENSITIVITYon 08-17-2021 HSTROP <4.0 Normal 4.0-51.3 [facility] Comment on above: Result Comment: CUT- OFF POINTS HAVE BEEN ESTABLISHED BASED ON THE FOURTH UNIVERSAL DEFINITIONS OF MYOCARDIAL INFARCTION. THE UPPER REFERENCE LIMIT (URL) OF TROPONIN, DEFINED THE 99TH PERCENTILE OF cTnI DISTRIBUTION IN A REFERENCE POPULATION, HAS BEEN CONFIRMED THE DECISION THRESHOLD FOR [place] DIAGNOSIS. Performed By: #### C MP, HSTROPN #### [facility] [address] [address] [address] Moshe Fontenot XR CHEST 2 Von [...] by: ZEYAD DO Date: 2021-08-17 16:13 Normal [facility] MG MAMM SCREEN 3D DARIA CADon 08-11-2021 MG MAMM SCREEN 3D DARIA CAD Patient: SELENA FRANCISCO Exam Date: 08/11/2021 : 1960 Gender:F Ordering : DR SHERON HUTTON PA Admission #: [id number] Family : Order #: [id number] CLICK HERE TO VIEW EXAM RADIOLOGY REPORT [...] Treatments None Family Cancers None LOCATION: [facility] BREAST COMPOSITION: Heterogeneously dense,which may obscure small [...] Waggoner MD on 08/11/2021 at 13:04 Normal [facility] Complete Blood Counton 08-04 Erythrocyte distribution width (RBC) [Ratio] 13.2 % Normal 11.0-15.0 [facility] Comment on above: Performed By: #### T SH, CBC, FT4, LIPD, FT3, CMP #### [facility] [address] [place], [place] [id number] Hematocrit (Bld) [Volume fraction] 42.6 % Normal 35.0-47.0 [facility] Comment on above: Performed By: #### T SH, CBC, FT4, LIPD, FT3, CMP #### [facility] [address], [place] [id number] Hemoglobin (Bld) [Mass/Vol] 14.0 g/dL Normal 11.6-15.5 [facility] Comment on above: Performed By: #### T SH, CBC, FT4, LIPD, FT3, CMP #### [facility] [address] [place], [place] [id number] MCH (RBC) [Entitic mass] 29.2 pg Normal 27.0-33.0 [facility] Comment on above: Performed By: #### T SH, CBC, FT4, LIPD, FT3, CMP #### [facility] [address] [place], [place] [id number] MCHC (RBC) [Mass/Vol] 32.9 g/dL Normal 32.0-36.0 [facility] Comment on above: Performed By: #### T SH, CBC, FT4, LIPD, FT3, CMP #### [facility] [address], [place] [id number] MCV (RBC) [Entitic vol] 89 fL Normal 80-100 [facility] Comment on above: Performed By: #### T SH, CBC, FT4, LIPD, FT3, CMP #### [facility] [address], [place] [id number] Platelet mean volume (Bld) [Entitic vol] 11.60 fL Normal 7.50-12.50 [facility] Comment on above: Performed By: #### T SH, CBC, FT4, LIPD, FT3, CMP #### [facility] [address], [place] [id number] Platelets (Bld) [#/Vol] 115 10*3/uL Low 140-400 [facility] Comment on above: Performed By: #### T SH, CBC, FT4, LIPD, FT3, CMP #### [facility] [address], [place] [id number] RBC (Bld) [#/Vol] 4.80 10*6/uL Normal 3.90-5.20 [facility] Comment on above: Performed By: #### T SH, CBC, FT4, LIPD, FT3, CMP #### [facility] [address], [place] [id number] RDW-SD 43.3 fL Normal 37.0-50.0 [facility] Comment on above: Performed By: #### T SH, CBC, FT4, LIPD, FT3, CMP #### [facility] [address], [place] [id number] WBC (Bld) [#/Vol] 6.6 10*3/uL Normal 3.8-11.0 [facility] Swimming Pool Attendant Comment on above: Performed By: #### T SH, CBC, FT4, LIPD, FT3, CMP #### [facility] [address] [place], [place] [id number] Comprehensive Metabolic Pane [facility] 08-04-2021 Albumin [Mass/Vol] 4.3 g/dL Normal 3.6-5.1 [facility] Swimming Pool Attendant Comment on above: Performed By: #### T SH, CBC, FT4, LIPD, FT3, CMP #### [facility] [address], [place] [id number] Albumin/Globulin [Mass ratio] 2.0 {ratio} Normal 1.0-2.5 [facility] Comment on above: Performed By: #### T SH, CBC, FT4, LIPD, FT3, CMP #### [facility] [address] [place], [place] [id number] ALP [Catalytic activity/Vol] 91 U/L Normal 35-119 [facility] Comment on above: Performed By: #### T SH, CBC, FT4, LIPD, FT3, CMP #### [facility] [address], [place] [id number] ALT [Catalytic activity/Vol] 10 U/L Normal 6-33 [facility] Comment on above: Result Comment: 03/03 Female reference range changed. Performed By: #### T SH, CBC, FT4, LIPD, FT3, CMP #### [facility] [address], [place] [id number] Anion gap [Moles/Vol] 15 mmol/L Normal 12-20 [facility] Comment on above: Result Comment: Effe ctive 04/08/2019 reference range changed. Performed By: #### T SH, CBC, FT4, LIPD, FT3, CMP #### [facility] [address] [place], [place] [id number] AST [Catalytic activity/Vol] 20 U/L Normal 9-34 [facility] Comment on above: Performed By: #### T SH, CBC, FT4, LIPD, FT3, CMP #### [facility] [address], [place] [id number] BUN/CREA 15 Ratio Normal 6-22 [facility] Comment on above: Performed By: #### T SH, CBC, FT4, LIPD, FT3, CMP #### [facility] [address], [place] [id number] Calcium [Mass/Vol] 9.0 mg/dL Normal 8.6-10.2 [facility] Comment on above: Performed By: #### T SH, CBC, FT4, LIPD, FT3, CMP #### [facility] [address], [place] [id number] Chloride [Moles/Vol] 100 mmol/L Normal 98-107 [facility] Comment on above: Performed By: #### T SH, CBC, FT4, LIPD, FT3, CMP #### [facility] [address], [place] [id number] CO2 [Moles/Vol] 25 mmol/L Normal 20-31 [facility] Comment on above: Performed By: #### T SH, CBC, FT4, LIPD, FT3, CMP #### [facility] [address], [place] [id number] Creatinine [Mass/Vol] 0.7 mg/dL Normal 0.6-1.4 [facility] Comment on above: Performed By: #### T SH, CBC, FT4, LIPD, FT3, CMP #### [facility] [address], [place] [id number] eGFRAA 107 mL/min/1.73m2 Normal >60 [facility] Comment on above: Performed By: #### T SH, CBC, FT4, LIPD, FT3, CMP #### [facility] [address], [place] [id number] eGFRNAA 88 mL/min/1.73m2 Normal >60 [facility] Comment on above: Performed By: #### T SH, CBC, FT4, LIPD, FT3, CMP #### [facility] [address], [place] [id number] Globulin (S) [Mass/Vol] 2.2 g/dL Normal 1.9-3.7 [facility] Comment on above: Performed By: #### T SH, CBC, FT4, LIPD, FT3, CMP #### [facility] [address], [place] [id number] Glucose [Mass/Vol] 84 mg/dL Normal 65-99 [facility] Swimming Pool Attendant Comment on above: Result Comment: For FASTING Glucose --- ADA reference ranges: Normal 65-99 mg/dl Prediabetes 100-125 Diabetes >/= 126 Performed By: #### T SH, CBC, FT4, LIPD, FT3, CMP #### [facility] [address], [place] [id number] Potassium [Moles/Vol] 4.4 mmol/L Normal 3.5-5.5 [facility] Comment on above: Performed By: #### T SH, CBC, FT4, LIPD, FT3, CMP #### [facility] [address] [place], [place] [id number] Protein [Mass/Vol] 6.5 g/dL Normal 6.1-8.1 [facility] Swimming Pool Attendant Comment on above: Performed By: #### T SH, CBC, FT4, LIPD, FT3, CMP #### [facility] [address], [place] [id number] Sodium [Moles/Vol] 135 mmol/L Normal 135-146 [place] [facility] Swimming Pool Attendant Comment on above: Performed By: #### T SH, CBC, FT4, LIPD, FT3, CMP #### [facility] [address], [place] [id number] TBIL <0.3 Normal [facility] Swimming Pool Attendant Comment on above: Performed By: #### T SH, CBC, FT4, LIPD, FT3, CMP #### [facility] [address], [place] [id number] Urea nitrogen [Mass/Vol] 10 mg/dL Normal 7-25 [facility] Swimming Pool Attendant Comment on above: Performed By: #### T SH, CBC, FT4, LIPD, FT3, CMP #### [facility] [address], [place] [id number] Free T3on 08-04-2021 FT3 2.88 pg/mL Normal 2.00-4.40 [facility] Swimming Pool Attendant Comment on above: Performed By: #### T SH, CBC, FT4, LIPD, FT3, CMP #### [facility] [address] [place], [place] [id number] Free T4on 08-04-2021 Free T4 [Mass/Vol] 1.23 ng/dL Normal 0.80-1.80 [facility] Swimming Pool Attendant Comment on above: Performed By: #### T SH, CBC, FT4, LIPD, FT3, CMP #### [facility] [address], [place] [id number] Lipid Panelon 08-04-2021 Cholesterol [Mass/Vol] 129 mg/dL Normal 125-200 [facility] Swimming Pool Attendant Comment on above: Result Comment: Low risk < 200mg/dL Borderline risk 201-239 mg/dl High risk > or equal to 240 Performed By: #### T SH, CBC, FT4, LIPD, FT3, CMP #### [facility] [address] [place], [place] [id number] Cholesterol in HDL [Mass/Vol] 48 mg/dL Normal >40 [facility] Comment on above: Result Comment: High Cardiovascular Risk HDL <40 mg/dL Low Cardiovascular Risk HDL > or equal to 60 mg/dl Performed By: #### T SH, CBC, FT4, LIPD, FT3, CMP #### [facility] [address] [place], [place] [id number] Cholesterol in LDL [Mass/Vol] 61 mg/dL Normal [facility] Comment on above: Result Comment: LDL ATP III CLASSIFICATION LDL less than 100 mg/dl Optimal LDL 100-129 mg/dl Near or above optimal LDL 130-159 Borderline high LDL 160-189 High LDL greater than 189 mg/dl Very High Performed By: #### T SH, CBC, FT4, LIPD, FT3, CMP #### [facility] [address] [place], [place] [id number] Cholesterol in VLDL [Mass/Vol] 20 mg/dL Normal [facility] Comment on above: Performed By: #### T SH, CBC, FT4, LIPD, FT3, CMP #### [facility] [address], [place] [id number] Cholesterol.total/Ch olesterol in HDL [Mass ratio] 3 {ratio} Normal [facility] Comment on above: Performed By: #### T SH, CBC, FT4, LIPD, FT3, CMP #### [facility] [address] [place], [place] [id number] Triglyceride [Mass/Vol] 99 mg/dL Normal 30-150 [facility] Comment on above: Result Comment: TRIG ATPIII CLASSIFICATIONS TRIG less than 150 mg/dl Normal TRIG 150-199 mg/dl Borderline High TRIG 200-500 mg/dl High TRIG greather than 500 mg/dl Very High Performed By: #### T SH, CBC, FT4, LIPD, FT3, CMP #### [facility] [address] [place], [place] [id number] TSHon 08-04-2021 TSH 1.710 uIU/mL Normal 0.400-4.500 [facility] Swimming Pool Attendant Comment on above: Performed By: #### T SH, CBC, FT4, LIPD, FT3, CMP #### [facility] [address] [place], [place] [id number] RESPIRATORY PANEL PLUSon Adenovirus Not detected Normal NOT DETECTED [facility] Comment on above: Performed By: #### R SPLUS #### [facility] [address] [place] [address] Dr. Moshe Alanis. Parapertusis Not detected Normal NOT DETECTED [facility] Comment on above: Performed By: #### R SPLUS #### [facility] [address] [place] [place] [address] Dr. Moshe Alanis. Pertussis Not detected Normal NOT DETECTED [facility] Comment on above: Performed By: #### R SPLUS #### [facility] [address] [place] [place] [address] Dr. Moshe Fontenot Chlamydia Pneumoniae Not detected Normal NOT DETECTED [facility] Comment on above: Performed By: #### R SPLUS #### [facility] [address] [place] [place] [address] Dr. Moshe Fontenot Coronavirus 229E Not detected Normal NOT DETECTED [facility] Comment on above: Performed By: #### R SPLUS #### [facility] [address] [place] [place] [address] Dr. Moshe Fontenot Coronavirus HKU1 Not detected Normal NOT DETECTED [facility] Comment on above: Performed By: #### R SPLUS #### [facility] [address] [place] [place] [address] Dr. Moshe Fontenot Coronavirus NL63 Not detected Normal NOT DETECTED [facility] Comment on above: Performed By: #### R SPLUS #### [facility] [address] [place] [place] [address] Dr. Moshe Fontenot Coronavirus OC43 Not detected Normal NOT DETECTED [facility] Comment on above: Performed By: #### R SPLUS #### [facility] [address] [place] [place] [address] Dr. Moshe Fontenot Influenza A H1 2009 Not detected Normal NOT DETECTED [facility] Comment on above: Performed By: #### R SPLUS #### [facility] [address] [place] [place] [address] Dr. Moshe Fontenot Influenza A H3 Not detected Normal NOT DETECTED [facility] Comment on above: Performed By: #### R SPLUS #### [facility] [address] [address] [address] Moshe Fontenot Influenza B Not detected Normal NOT DETECTED [facility] Comment on above: Performed By: #### R SPLUS #### [facility] [address] [place] [place] [address] Dr. Moshe Fontenot Metapneumovirus Not detected Normal NOT DETECTED [facility] Comment on above: Performed By: #### R SPLUS #### [facility] [address] [place] [place] [address] Dr. Moshe Fontenot Mycoplas. Pneumoniae Not detected Normal NOT DETECTED [facility] Comment on above: Performed By: #### R SPLUS #### [facility] [address] [place] [place] [address] Dr. Moshe Fontenot Parainfluenza 1 Not detected Normal NOT DETECTED [facility] Comment on above: Performed By: #### R SPLUS #### [facility] [address] [place] [place] [address] Dr. Moshe Fontenot Parainfluenza 2 Not detected Normal NOT DETECTED [facility] Comment on above: Performed By: #### R SPLUS #### [facility] [address] [place] [place] [address] Dr. Moshe Fontenot Parainfluenza 3 Not detected Normal NOT DETECTED [facility] Comment on above: Performed By: #### R SPLUS #### [facility] [address] [place] [place] [address] Dr. Moshe Fontenot Parainfluenza 4 Not detected Normal NOT DETECTED [facility] Comment on above: Performed By: #### R SPLUS #### [facility] [address] [place] [place] [address] Dr. Moshe Fontenot Rhino/Enterovirus Not detected Normal NOT DETECTED [facility] Comment on above: Performed By: #### R SPLUS #### [facility] [address] [place] [place] [address] Dr. Moshe Fontenot RP2 Header 1 RESPIRATORY PANEL: VIRUSES Normal [facility] Comment on above: Performed By: #### R SPLUS #### [facility] [address] [address] [address] Moshe Fontenot RP2 Header 2 RESPIRATORY PANEL: BACTERIA Normal [facility] Comment on above: Performed By: #### R SPLUS #### [facility] [address] [place] [place] [address] Dr. Moshe Fontenot RSV Not detected Normal NOT DETECTED [facility] Comment on above: Performed By: #### R SPLUS #### [facility] [address] [address] [address] Moshe Fontenot SARS-CoV-2 (COVID-19) RNA BRITTANY+probe Ql (Unsp spec) Not detected Normal NOT DETECTED [facility] Comment on above: Performed By: #### R SPLUS #### [facility] [address] [place] [address] Dr. Moshe Fontenot Basic Metabolic Profileon Anion gap [Moles/Vol] 9.0 mmol/L Low 10.0-15.0 [facility] Comment on above: Performed By: #### 1 015 #### [facility] Unless Otherwise Noted [address] [address] / [facility] #4724/CLIA # [id number] BUN/Cre Ratio 8.3 Ratio Normal 7.0-27.0 [facility] Comment on above: Performed By: #### 1 015 #### [facility] Unless Otherwise Noted [address] [address] / [facility] #4724/CLIA # [id number] Calcium [Mass/Vol] 9.5 mg/dL Normal 8.4-10.2 [facility] Comment on above: Performed By: #### 1 015 #### [facility] Unless Otherwise Noted [address] [address] / [facility] #4724/CLIA # [id number] Chloride [Moles/Vol] 95.0 mmol/L Low 98.0-107.0 [facility] Comment on above: Performed By: #### 1 015 #### [facility] Unless Otherwise Noted [address] [address] / [facility] #4724/CLIA # [id number] CO2 [Moles/Vol] 26.0 mmol/L Normal 22.0-30.0 [facility] Comment on above: Performed By: #### 1 015 #### [facility] Unless Otherwise Noted [address] [address] / [facility] #4724/CLIA # [id number] Creatinine [Mass/Vol] 0.6 mg/dL Normal 0.5-1.0 [facility] Comment on above: Performed By: #### 1 015 #### [facility] Unless Otherwise Noted [address] [address] / [facility] #4724/CLIA # [id number] GFR/1.73 sq M predicted among blacks MDRD (S/P/Bld) [Vol rate/Area] 131.6 ml/m1.73 Normal [facility] Comment on above: Performed By: #### 1 015 #### [facility] Unless Otherwise Noted [address] [address] / [facility] #4724/CLIA # [id number] GFR/1.73 sq M predicted among non-blacks MDRD (S/P/Bld) [Vol rate/Area] 108.8 ml/m1.73 Normal [facility] Comment on above: Performed By: #### 1 015 #### [facility] Unless Otherwise Noted 2099 [facility] [address] [place] [address] / [facility] #4724/CLIA # [id number] GFR/1.73 sq M predicted among non-blacks MDRD (S/P/Bld) [Vol rate/Area] 104.0 ml/m1.73 Normal [facility] Comment on above: Performed By: #### 1 015 #### [facility] [place] Unless Otherwise Noted [address] [address] / [facility] #4724/CLIA # [id number] Glucose [Mass/Vol] 93.0 mg/dL Normal 74.0-106.0 [facility] Comment on above: Performed By: #### 1 015 #### [facility] Unless Otherwise Noted [address] [address] / [facility] #4724/CLIA # [id number] Potassium [Moles/Vol] 4.5 mmol/L Normal 3.5-5.1 [facility] Comment on above: Performed By: #### 1 015 #### [facility] [place] Unless Otherwise Noted [address] [address] / [facility] #4724/CLIA # [id number] Sodium [Moles/Vol] 130.0 mmol/L Low 137.0-145.0 [facility] Comment on above: Performed By: #### 1 015 #### [facility] Unless Otherwise Noted [address] [address] / [facility] #8024/CLIA # [id number] Urea nitrogen [Mass/Vol] 5.0 mg/dL Low 7.0-17.0 [facility] Comment on above: Performed By: #### 1 015 #### [facility] Unless Otherwise Noted [address] [address] / [facility] #4724/CLIA # [id number] Basic Metabolic Profileon Anion gap [Moles/Vol] 9.0 mmol/L Low 10.0-15.0 [facility] Comment on above: Performed By: #### 1 015 #### [facility] Unless Otherwise Noted [address] [address] / [facility] #4724/CLIA # [id number] BUN/Cre Ratio 15.0 Ratio Normal 7.0-27.0 [facility] Comment on above: Performed By: #### 1 015 #### [facility] Unless Otherwise Noted [address] [address] / [facility] #4724/CLIA # [id number] Calcium [Mass/Vol] 9.9 mg/dL Normal 8.4-10.2 [facility] Comment on above: Performed By: #### 1 015 #### [facility] Unless Otherwise Noted [address] [address] / [facility] #4724/CLIA # [id number] Chloride [Moles/Vol] 97.0 mmol/L Low 98.0-107.0 [facility] Comment on above: Performed By: #### 1 015 #### [facility] Unless Otherwise Noted [address] [address] / [facility] #4724/CLIA # [id number] CO2 [Moles/Vol] 28.0 mmol/L Normal 22.0-30.0 [facility] Comment on above: Performed By: #### 1 015 #### [facility] Unless Otherwise Noted [address] [address] / [facility] #4724/CLIA # [id number] Creatinine [Mass/Vol] 0.8 mg/dL Normal 0.5-1.0 [facility] Comment on above: Performed By: #### 1 015 #### [facility] Unless Otherwise Noted [address] [address] / [facility] #4724/CLIA # [id number] GFR/1.73 sq M predicted among blacks MDRD (S/P/Bld) [Vol rate/Area] 94.7 ml/m1.73 Normal [facility] Comment on above: Performed By: #### 1 015 #### [facility] Unless Otherwise Noted [address] [address] / [facility] #4724/CLIA # [id number] GFR/1.73 sq M predicted among non-blacks MDRD (S/P/Bld) [Vol rate/Area] 83.9 ml/m1.73 Normal [facility] Comment on above: Performed By: #### 1 015 #### [facility] Unless Otherwise Noted [address] [address] / [facility] #4724/CLIA # [id number] GFR/1.73 sq M predicted among non-blacks MDRD (S/P/Bld) [Vol rate/Area] 78.3 ml/m1.73 Normal [facility] Comment on above: Performed By: #### 1 015 #### [facility] Unless Otherwise Noted [address] [address] / [facility] #4724/CLIA # [id number] Glucose [Mass/Vol] 89.0 mg/dL Normal 74.0-106.0 [facility] Comment on above: Performed By: #### 1 015 #### [facility] Unless Otherwise Noted [address] [address] / [facility] #4724/CLIA # [id number] Potassium [Moles/Vol] 5.0 mmol/L Normal 3.5-5.1 [facility] Comment on above: Performed By: #### 1 015 #### [facility] Unless Otherwise Noted [address] [address] / [facility] #4724/CLIA # [id number] Sodium [Moles/Vol] 134.0 mmol/L Low 137.0-145.0 End [facility] Comment on above: Performed By: #### 1 015 #### [facility] Unless Otherwise Noted [address] [address] / [facility] #4724/CLIA # [id number] Urea nitrogen [Mass/Vol] 12.0 mg/dL Normal 7.0-17.0 [facility] Comment on above: Performed By: #### 1 015 #### [facility] Unless Otherwise Noted [address] [address] / [facility] #4724/CLIA # [id number] Vital Signs Date Time Vital Sign Value Performing Clinician Facility 05-01-2024 08:47-0500 Body height 172.7 cm Colin Lee MD Work Phone: [facility] 05-01-2024 08:47-0500 Body mass index (BMI) [Ratio] 20.07 kg/m2 Colin Lee MD Work Phone: [facility] 05-01-2024 08:47-0500 Body temperature 97.3 [degF] Colin Lee MD Work Phone: [facility] 05-01-2024 08:47-0500 Body weight 59.88 kg Colin Lee MD Work Phone: [facility] 05-01-2024 08:47-0500 Diastolic blood pressure 76 mm[Hg] Colin Lee MD Work Phone: [facility] 05-01-2024 08:47-0500 Heart rate 108 /min Colin Lee MD Work Phone: [facility] 05-01-2024 08:47-0500 SaO2% (BldA) [Mass fraction] 73 % Colin Lee MD Work Phone: [facility] Comment on above: post nebs 76 05-01-2024 08:47-0500 Systolic blood pressure 138 mm[Hg] Colin Lee MD Work Phone: [facility] 04-18-2024 13:47-0500 Body height 172.72 cm [facility] 04-18-2024 13:47-0500 Body mass index (BMI) [Ratio] 19 kg/m2 [facility] 04-18-2024 13:47-0500 Body weight 56.69 kg [facility] 02-05-2024 08:54-0500 Body height 172.7 cm Colin Lee MD Work Phone: [facility] 02-05-2024 08:54-0500 Body mass index (BMI) [Ratio] 20.68 kg/m2 Colin Lee MD Work Phone: [facility] 02-05-2024 08:54-0500 Body weight 61.69 kg Colin Lee MD Work Phone: [facility] 02-05-2024 08:54-0500 Diastolic blood pressure 70 mm[Hg] Colin Lee MD Work Phone: [facility] 02-05-2024 08:54-0500 Heart rate 72 /min Colin Lee MD Work Phone: [facility] 02-05-2024 08:54-0500 SaO2% (BldA) [Mass fraction] 92 % Colin Lee MD Work Phone: [facility] 02-05-2024 08:54-0500 Systolic blood pressure 138 mm[Hg] Colin Lee MD Work Phone: [facility] 12-25-2023 08:51-0400 Body height 172.7 cm Colin Lee MD Work Phone: [facility] 12-25-2023 08:51-0400 Body mass index (BMI) [Ratio] 19.46 kg/m2 Colin Lee MD Work Phone: [facility] 12-25-2023 08:51-0400 Body weight 58.06 kg Colin Lee MD Work Phone: [facility] 12-25-2023 08:51-0400 Diastolic blood pressure 78 mm[Hg] Colin Lee MD Work Phone: [facility] 12-25-2023 08:51-0400 Heart rate 82 /min Colin Lee MD Work Phone: [facility] 12-25-2023 08:51-0400 SaO2% (BldA) [Mass fraction] 96 % Colin Lee MD Work Phone: [facility] 12-25-2023 08:51-0400 Systolic blood pressure 138 mm[Hg] Colin Lee MD Work Phone: [facility] 02-07-2022 11:30-0500 Body height 172.72 cm Jacob Frances Other [employer] Other 02-07-2022 11:30-0500 Body mass index (BMI) [Ratio] 22.35 kg/m2 Jacob Frances Other [employer] Other 02-07-2022 11:30-0500 Body weight 66.68 kg Jacob Frances Other [employer] Other 02-07-2022 11:30-0500 Diastolic blood pressure 74 mm[Hg] Jacob Frances Other [employer] Other 02-07-2022 11:30-0500 Systolic blood pressure 114 mm[Hg] Jacob Frances Other [employer] Other 12-13-2018 17:58-0400 Body weight 65.3 Kg [facility] Comment on above: Performed By: #### 1015 #### [facility] Unless Otherwise Noted [address] [place] [address] / [facility] #4724/CLIA # [id number] 05-07-2018 18:41-0500 Body weight 69.4 Kg [facility] Comment on above: Performed By: #### 1015 #### [facility] Unless Otherwise Noted [address] [place] [address] / [facility] #4724/CLIA # [id number] Encounters Encounter Date Encounter Type Care Provider Facility Start: 05-01-2024 End: 05-01-2024 Jesi flowstrevin Lee MD Work Phone: [facility] Start: 05-01-2024 End: 05-01-2024 [employer] flowsheet Colin Lee MD Work Phone: [facility] Start: 05-01-2024 End: 05-01-2024 Office outpatient visit 25 minutes Colin Lee MD Work Phone: [facility] Comment on above: COPD exacerbation (C MS/HCC) (Primary Dx); Hypoxia Start: 04-23-2024 End: 04-23-2024 Refill Colin Lee MD Work Phone: [facility] Comment on above: Panlobular emphysema (CMS/HCC); Generalized osteoarthrosis, involving multiple sites; Degenerative disc disease, lumbar Start: 04-18-2024 End: 04-18-2024 ambulatory [facility] Work Phone: Start: 04-18-2024 End: 04-18-2024 Patient encounter procedure [facility] Work Phone: Start: 03-21-2024 End: 03-21-2024 Refill Colin Lee MD Work Phone: [facility] Comment on above: Generalized osteoart hrosis, involving multiple sites; Degenerative disc disease, lumbar Start: 02-22-2024 End: 02-22-2024 Refill Colin Lee MD Work Phone: [facility] [...] 12-25-2023 Office outpatient visit 25 minutes Colin Lee MD Work Phone: [facility] Comment on above: Weight loss (Primary Dx); Generalized osteoarthrosis, involving multiple sites; Degenerative disc disease, lumbar; Diarrhea, unspecified type; Panlobular emphysema (CMS/HCC); Chronic cough Start: 12-25-2023 End: 12-25-2023 ambulatory COLIN Alanis LEE Not Available Start: 11-23-2023 End: 11-23-2023 Kasi Lee MD Work Phone: [facility] Comment on above: Generalized osteoart hrosis, involving multiple sites; Degenerative disc disease, lumbar Start: 09-21-2023 End: 09-21-2023 ambulatory COLIN Alanis LEE Not Available Start: 08-07-2023 End: 08-07-2023 ambulatory SHERON HUTTON Not Available Start: 06-21-2023 End: 06-21-2023 ambulatory COLIN Alanis LEE Not Available Start: 06-06-2023 End: 06-06-2023 ambulatory SHERON HUTTON Not Available Start: 05-17-2023 aKsi BEAR [facility] M Comment on above: Generalized osteoart hrosis, involving multiple sites; Degenerative disc disease, lumbar Start: 03-20-2023 End: 03-20-2023 ambulatory COLIN B GISELLE Not Available Start: 03-15-2022 End: 03-16-[address] Zeyad Do Facility:[facility] Start: 03-04-2022 End: 03-04-2022 Departed Referred BAILEY Shaw Lee Work Phone: [facility] [place] Start: 03-04-2022 End: 03-04-2022 ambulatory BAILEY Lee Work Phone: [facility] Work Phone: Start: 02-14-2022 End: 02-14-2022 ambulatory Jacob Frances Other [email or web address] Other Start: 02-14-2022 Telephone encounter [facility] Start: 02-07-2022 End: 02-07-2022 ambulatory Jacob Frances Other [email or web address] Other Start: 02-07-2022 [facility] visit new patient Jacob Frances [facility] Start: 08-17-2021 End: 08-17-[address] Zeyad Do Facility:[facility] Start: 08-11-2021 End: 08-12-[address] SHERON HUTTON Facility:[facility] Start: 04-14-2021 End: 04-14-[address] COLIN LEE Facility:[facility] Procedures Date Procedure Procedure Detail Performing Clinician Start: 10-09-2023 Mammography Colin lee MD Work Phone: Start: 09-07-2022 H/O: hysterectomy History of hystere ctomy Sri Jaziel Start: 03-04-2022 X-ray of right ankle II Colin Lee Work Phone: Start: 03-04-2022 X-ray of right foot II Colin Lee Work Phone: Start: 08-11-2021 Mammography Sri Cl aus Plan of Treatment Date Care Activity Detail Author Start: 10-08-2024 Screening for malign ant neoplasm of breast Mammogram [facility] Start: 05-01-2024 End: 05-01-2024 Patient encounter procedure [facility] Comment on above: Arrived Start: 02-01-2024 End: 02-01-2024 Patient encounter procedure 02/01/2024 8:45 AM EDT Office Visit [facility] [address] [place] [id number] Colin Lee MD [address] [place] [address] [facility] Start: 12-28-2023 End: 12-28-2023 Patient encounter procedure 12/28/2023 8:30 AM EDT Office Visit [facility] [address] [place] [address] Colin Lee MD [address] [place] [address] [facility] Start: 12-25-2023 End: 12-24-2024 Comprehensive metabolic 2000 panel - Serum or Plasma Comprehensive metabolic panel Lab Routine Weight loss Diarrhea, unspecified type Expected: 12/25/2023 (Approximate), Expires: 12/24/2024 [facility] Comment on above: Expected: 12/25/2023 (Approximate), Expires: 12/24/2024 Start: 12-25-2023 End: 12-24-2024 TSH W/REFLEX TO FT4 TSH W/REFLEX TO FT4 Lab Routine Weight loss Diarrhea, unspecified type Expected: 12/25/2023 (Approximate), Expires: 12/24/2024 [facility] Work Phone: Comment on above: Expected: 12/25/2023 (Approximate), Expires: 12/24/2024 Start: 12-03-2023 Influenza vaccination Influenza Vacc ine (#1) [facility] Start: 06-21-2023 End: 06-21-2023 Patient encounter procedure 06/21/2023 10:30 AM EDT Office Visit [facility] [address] [facility] [address] [place] [id number] Colin Lee MD [address] [facility] [address] [place], [place] [id number] [facility] Start: 12-02-2022 Influenza vaccination Influenza Vacc ine (#1) [facility] Start: 08-11-2022 Screening for malign ant neoplasm of breast Mammogram [facility] Start: 1960 Screening for malign ant neoplasm of colon [facility] CBC W Auto Different ial panel - Blood CBC and differential Lab Routine Weight loss Diarrhea, unspecified type Ordered: 12/25/2023 [facility] Comment on above: Ordered: 12/25/2023 XR Chest 2 Views XR chest 2 view s Imaging Routine Weight loss Panlobular emphysema (CMS/HCC) Chronic cough Ordered: 12/25/2023 [facility] Comment on above: Ordered: 12/25/2023 Immunizations Immunization Date Immunization Notes Care Provider Fa santiagoty 02-03-2022 influenza, injectabl e, quadrivalent, preservative free Sri Jaziel [facility] 02-03-2022 influenza virus vacc ine, unspecified formulation Sri Jaziel [facility] 02-01-2021 influenza, injectabl e, quadrivalent, contains preservative Sri Jaziel [facility] 01-30-2020 influenza, injectabl e, quadrivalent, preservative free Sri Jaziel [facility] 10-31-2019 pneumococcal polysac charide vaccine, 23 valent Sri Jaziel [facility] 01-16-2019 Influenza, injectabl e, Madin Megargel Canine Kidney, quadrivalent with preservative Sri Jaziel [facility] 11-05-2018 tetanus toxoid, redu laura diphtheria toxoid, and acellular pertussis vaccine, adsorbed Sri Jaziel [facility] 01-15-2018 seasonal influenza, intradermal, preservative free Sri Jaziel [facility] 01-11-2017 seasonal influenza, intradermal, preservative free Sri Jaziel [facility] Payers Date Payer Category Payer [facility] Insurance [facility] [id number] 2022 Unknown [id number] 2022 Unknown [id number] 2022 Self-pay [id number] 1959 Unknown [id number]. 2.593 1959 Unknown [id number] 2..840.1.253837.3.579. 2.593 1959 Unknown [id number] 2.16.840.1.801356.3.579. 2.593 1959 Unknown [id number] 2.16.840.1.307384.3.579. 2.593 1959 Unknown [id number] 2.16.840.1.900950.3.579. 2.9 1959 Unknown [id number] 2.16.840.1.783155.3.579. 2.9 1959 Unknown [id number] 2.16.840.1.462419.3.579. 2.9 1959 Unknown [id number] 2.16.840.1.801693.3.579. 2.1258 1959 Unknown [id number] 2.16.840.1.742439.3.579. 2.9 1959 Unknown [id number] 2.16.840.1.446340.3.579. 2.1258 1959 Unknown [id number] 2.16.840.1.932529.3.579. 2.1259 1959 Unknown [id number] 2.16.840.1.723727.19 1959 Unknown [id number] Unknown [id number] 2.16.840.1.945493.3.579. 2.531 Social History Date Type Detail Facility Unknown if ever smoked [email or web address] Other Start: 03-20-2023 End: 05-01-2024 Sex Assigned At [employer] Other Start: 1960 Sex Assigned At Female F [facility] Start: 04-03-1976 Tobacco smoking status ALIS Smokes tobacco daily [facility] Start: 04-03-1976 History of tobacco use Cigarette Smoker [facility] Start: 2022 Tobacco use and exposure Smokeless tobacco non-user [facility] Start: 03-20-2023 End: 05-01-2024 Alcohol intake Ex-drinker (finding) [facility] Start: 03-20-2023 End: 05-01-2024 History of Social function [facility] Start: 1960 Sex Assigned At Not on file [facility] Start: 04-26-2017 Tobacco smoking status NHIS Smoker (finding) [facility] Start: 04-18-2024 Sex Female (finding) [facility] Clinical Notes 02-07-2022 to 05-01-2024 Colin Lee MD - 05/01/2024 8:45 AM ESTTelephone Encounter - JUSTIN Cheung - 04/23/2024 9:53 AM ESTTelephone Encounter - JUSTIN Cheung - 04/23/2024 9:53 AM EST Note Date & Type Note Facility 05-01-2024 History of Presen t illness Narrative Images from the original note were not included. HPI Follow-up Additional comments: Pain med Results Additional comments: Cxr ordered for chronic cough Last edited by Jessica Hernandez LPN on 05/01/2024 8:54 AM. Subjective Patient ID: Selena Francisco is a 63 y.o. female who presents for Follow-up (Pain med), Hypertension, Results (Cxr ordered for chronic cough), and URI. Hypertension Patient is here for follow-up of elevated blood pressure. She is not exercising Blood pressure is well controlled at home. Cardiac symptoms: none. Patient denies chest pain, claudication, irregular heart beat, near-syncope, palpitations, paroxysmal nocturnal dyspnea, syncope, and tachypnea. Cardiovascular risk factors: hypertension. Use of agents associated with hypertension: none. Upper Respiratory Infection Patient complains of symptoms of a URI. Symptoms include congestion, cough described as productive, headache low grade fever, purulent nasal discharge, shortness of breath, and wheezing. Onset of symptoms was 1 week ago, and has been gradually worsening since that time. Treatment to date: albuterol nebs and albuterol mdi. Pt has missed 2 days of work due to illness Hypertension URI Current Outpatient Medications on File Prior to [...] AND 1 WEEK OFF* 4 patch 5 Pbwvdqthmqp-Otlqlrrfg-Illnnk (Trelegy Ellipta) 100-62.5-25 MCG/ACT aerosol powder Inhale 1 puff 1 (one) time each day at the same time. HYDROcodone-acetaminophen (Lamont) 10-325 MG tablet Take 1 tablet by [...] 4 tablets by mouth in the morning. No current facility-administered medications on file prior [...] 2007 HYSTERECTOMY SPINE SURGERY Visit Vitals BP 138/76 Pulse 108 Temp 97.3 F Ht 5' 8 Wt 132 lb SpO2 (!) 73% Comment: post nebs 76 PF 75 L/min Comment: post nebs 100 BMI 20.07 kg/m Smoking Status Every Day BSA 1.7 m Review of Systems Objective Physical Exam Pulmonary: Effort: Accessory muscle usage, prolonged expiration and respiratory distress present. Breath sounds: Decreased air movement present. No stridor. Examination of the right-upper field reveals decreased breath sounds. Examination of the left-upper field reveals decreased breath sounds. Examination of the right-middle field reveals decreased breath sounds. Examination of the left-middle field reveals decreased breath sounds. Examination of the right-lower field reveals decreased breath sounds. Examination of the left-lower field reveals decreased breath sounds. Decreased breath sounds present. Assessment/Plan Diagnoses and all orders for this visit: COPD exacerbation (CMS/HCC) - Peak Flows 70 pre and 110 post Nebulizer in office. O2 sat < 80 on RA pre and post. EMS called and patient was sent to [facility] ER, I called report to the ER. Hypoxia Follow up in about 1 week (around 05/08/2024) for Recheck. documented in this encounter [facility] 04-23-2024 Telephone encount er Note OARRS reviewed, Rx sent into patient's pharmacy. [facility] 04-23-2024 Miscellaneous Notes Formattin g of this note might be different from the original. OARRS reviewed, Rx sent into patient's pharmacy. documented in this encounter [facility] 03-21-2024 Telephone encount er Note Last OV 11-4-23 Last refill 02-22-24 [facility] 03-21-2024 Miscellaneous Notes Formattin g of this note might be different from the original. Last OV 02-04-23 Last refill 02-22-24 documented in this encounter [facility] 02-22-2024 Telephone encount er Note OARRS reviewed, Rx sent into patient's pharmacy. [facility] 02-22-2024 Miscellaneous Notes Formattin g of this note might be different from the original. OARRS reviewed, Rx sent into patient's pharmacy. HYDROcodone-acetaminophen (Lamont) 10-325 MG tablet to [facility] documented in this encounter [facility] 02-22-2024 Telephone encount er Note HYDROcodone-acetaminophen (Lamont) 10-325 MG tablet to [facility] 02-05-2024 History of Presen t illness Narrative [...] AND 1 WEEK OFF* 4 patch 5 Wnqzwoyuqlt-Vqtpligey-Aohtzg (Trelegy Ellipta) 100-62.5-25 MCG/ACT aerosol powder Inhale 1 puff 1 (one) time each day at the same time. HYDROcodone-acetaminophen (Lamont) 10-325 MG tablet Take 1 tablet by [...] Final BUN/CREATININE RATIO 12/25/2023 SEE NOTE: 6 (calc) Final Comment: Not Reported: BUN and [...] months (around 04/06/2024). documented in this encounter [facility] 01-23-2024 Telephone encount er Note OARRS reviewed, Rx sent into patient's pharmacy. [facility] 01-23-2024 Miscellaneous Notes Formattin g of this note might be different from the original. OARRS reviewed, Rx sent into patient's pharmacy. HYDROcodone-acetaminophen (Lamont) 10-325 MG tablet [ [facility] documented in this encounter [facility] 01-23-2024 Telephone encount er Note HYDROcodone-acetaminophen (Lamont) 10-325 MG tablet [ [facility] 12-25-2023 History of Presen t illness Narrative [...] AND 1 WEEK OFF* 4 patch 5 Sunwnvfvgld-Eobeymvsx-Izoqzb (Trelegy Ellipta) 100-62.5-25 MCG/ACT aerosol powder Inhale [...] by mouth in the morning. [DISCONTINUED] HYDROcodone-acetaminophen (Lamont) 10-325 MG tablet Take 1 tablet by [...] Generalized osteoarthrosis, involving multiple sites - HYDROcodone-acetaminophen (Lamont) 10-325 MG tablet; Take 1 tablet by [...] patient. Degenerative disc disease, lumbar - HYDROcodone-acetaminophen (Lamont) 10-325 MG tablet; Take 1 tablet by [...] for Test/Lab Review. documented in this encounter [facility] 11-23-2023 Telephone encount er Note HYDROcodone-acetaminophen (Lamont) 10-325 MG tablet [facility] 11-23-2023 Miscellaneous Notes Formattin g of this note might be different from the original. HYDROcodone-acetaminophen (Lamont) 10-325 MG tablet [facility] documented in this encounter [facility] 05-17-2023 Telephone encount er Note OARRS reviewed, Rx sent into patient's pharmacy. [facility] 05-17-2023 Miscellaneous Notes Formattin g of this note might be different from the original. OARRS reviewed, Rx sent into patient's pharmacy. documented in this encounter [facility] 03-15-2022 Note PROCEDURE: XR ANKLE RT [...] authenticated by: ZEYAD DO Date: 2022-03-15 17:03 [facility] 03-15-2022 Note PROCEDURE: XR ANKLE RT MIN [...] authenticated by: ZEYAD DO Date: 2022-03-15 17:03 [facility] 02-07-2022 Evaluation note Encounter Date Diagnosis Assessment Notes Feb, Diarrhea (ICD-10 - R19.7) Obtain records from Dr. Lee. Records release signed by patient. [email or web address] Other Evaluation noteNo InformationNort [employer] Other Evaluation noteNo assessment information available [facility] Work Phone: Evaluation note* Diagnosis Generalized osteoarthrosis, involving multiple sites Degenerative disc disease, lumbar [facility] Diagnosis Generalized osteoarthrosis, involving multiple sites Degenerative disc disease, lumbar [facility]* Diagnosis Diarrhea, unspecified type- Primary Panlobular emphysema (CMS/HCC) Other emphysema Chronic cough Cough Weight loss Loss of weight documented in this encounter [facility]* Diagnosis Generalized osteoarthrosis, involving multiple sites Degenerative disc disease, lumbar documented in this encounter [facility]* Diagnosis Weight loss- Primary Loss of weight Generalized osteoarthrosis, involving multiple sites Degenerative disc disease, lumbar Diarrhea, unspecified type Panlobular emphysema (CMS/HCC) Other emphysema Chronic cough Cough documented in this encounter [facility]* Diagnosis Onset Date Resolution Status Admit Date Change in bowel habits acute Ja nuary 2024 1:43pm Diarrhea acute April 18, 2024 1:43pm Musculoskeletal pain acute [facility] 2024 1:43pm [facility] Work Phone: Evalumdtub note* Diagnosis Panlobular emphysema (CMS/HCC) Other emphysema Generalized osteoarthrosis, involving multiple sites Degenerative disc disease, lumbar documented in this encounter [facility] note* Diagnosis COPD exacerbation (CMS/HCC)- Primary Obstructive chronic bronchitis with exacerbation Hypoxia Hypoxemia documented in this encounter [facility] HealthcareHistory general Narrative - Reported* Type Description Date Medical History hypertension Medical History high cholesterol Medical History arthritis Medical History LOW SODIUM Medical History CERVICAL CANCER Surgical History arthroscopic knee surgery Surgical History dequoir veins release Surgical History back surgery Surgical History appendectomy Surgical History right ovary and tube removed Surgical History hysterectomy Hospitalization History see above Hospitalization History small bowel obstruction [email or web address] Other Reason for referral (narrative)* Consultation (Routine) - Pending Review Specialty Diagnoses / Procedures Referred By Contac t Referred To Contact Gastroenterology Diagnoses Diarrhea, unspecified type Procedures [facility] OFFICE/OUTPATIENT NEW HIGH MDM 60 MINUTES Colin Lee MD [address] [facility] [address] [place] [address] Referral ID Status Reason Start Date Expiration Date Visits Requested Visits Authorized [id number] Pending Review Specialty Services Required 12/25/2023 06/22/2024 [...] Admit Date est/referred by Dr Lee- diarrhea Janua ry 2024 1:43pm Reason for Visit Admit Date Change in bowel habits April 18 1:43pm Diarrhea April 18, 2024 1 :43pm Musculoskeletal pain April 18, 2024 1:43pm Additional Source Comments INFORMATION SOURCE (unrecogn ized section and content) DATE CREATED AUTHOR 12/13/2018 [facility] DATE CREATED AUTHOR AUTHOR'S ORGANIZ ATION 08/06/2021 [facility] Specialist DATE CREATED AUTHOR AUTHOR'S ORGANIZ ATION 03/25/2022 [facility] pital DATE CREATED AUTHOR AUTHOR'S ORGANIZ ATION 12/29/2023 [facility] y[facility] DATE CREATED AUTHOR AUTHOR'S ORGANIZ ATION 02/06/2024 [facility] dical Specialists [facility] REASON FOR VISIT (unrecogniz ed section and content) Reason Onset Date Comments Med Refill 05/17/2023 Med Refill Reason Onset Date Comments Med Refill 01/23/2024 Reason Comments Results Labs and XR never do ne Reason Onset Date Comments Med Refill 11/23/2023 Reason Comments Hypertension medication follow up Reason Onset Date Comments Med Refill 03/21/2024 Reason Onset Date Comments Med Refill 04/23/2024 Reason Comments Follow-up Pain med Hypertension Results 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 URI Care Teams (unrecognized sec tion and content) [...] Provider Active Colin Mann Attending Provider Active Business Liaison Manager Relationship Specialty Start Date End Date Colin Lee MD [address] [place] [address] PCP - General Internal Medicine 09/07/22 Business Liaison Manager Relationship Specialty Start Date End Date Colin Lee MD [address] [place] [address] PCP - General Internal Medicine 09/07/22 Business Liaison Manager Relationship Specialty Start Date End Date Colin Lee MD [address] [place] [address] PCP - General Internal Medicine 09/07/22 Business Liaison Manager Relationship Specialty Start Date End Date Colin Lee MD [address] [place] [address] PCP - General Internal Medicine 09/07/22 Business Liaison Manager Relationship Specialty Start Date End Date Colin Lee MD [address] [place] [address] PCP - General Internal Medicine 09/07/22 Business Liaison Manager Relationship Specialty Start Date End Date Colin Lee MD [address] [place] [address] PCP - General Internal Medicine 09/07/22 Goals [...] BE BASED ON THE PRIMARY CLINICAL RECORDS. [facility] [employer] [facility]. provides no warranty or guarantee of the accuracy or completeness of information in this document.
[2024-05-01] MEDS: IPRATROPIUM/ALBUTEROL SULFATE 3 ML AMPUL.NEB IH ×3 (14:36→23:13)
--- NOTE | 2024-05-01 14:52 | SWNOTE1 ---
FABIEN spoke to nurse and pt's car is at her PCP office as she was brought here by squad. SW spoke with pt and she is alright with FABIEN calling Dr. Lee's office to remind them her car is there. Pt lives at home alone. Pt does not wear home oxygen. Pt is independent and still works midnights at [employer]. Pt does not use any DME to get around. SW to follow as needed. Pt's family lives in the [facility]. FABIEN called Dr. Lee's office and spoke to the toll gate keeper. FABIEN advised that pt's car will be there until she is released from hospital.
[2024-05-01 14:57] LABS: Troponin I High Sensitivity 47.2 pg/mL (4.0-51.3)
[2024-05-01 15:50] LABS: Lactate/Lactic Acid 0.8 mmol/L (0.4-2.0)
[2024-05-01] MEDS: LEVOFLOXACIN IN DEXTROSE 5 % 750 MG/150 ML PREMIX 100 MG IV (15:53)
[2024-05-01] MEDS: 0.9 % SODIUM CHLORIDE 250 ML 10 ML IV (15:53)
[2024-05-01] MEDS: METHYLPREDNISOLONE SOD SUCC PF 125 MG/2 ML VIAL IVP ×2 (15:53→21:48)
[2024-05-01] MEDS: PNEUMOC 20-VAL CONJ-DIP CRM/PF 0.5 ML SYRINGE IM (15:54)
[2024-05-01] MEDS: FLU VAC QS 2024(6MS UP)CEL/PF 60 MCG/0.5 ML SYRINGE IM (15:55)
[2024-05-01 16:55] LABS: Troponin I High Sensitivity 38.7 pg/mL (4.0-51.3)
[2024-05-01 18:52] LABS: Bilirubin Urine NEGATIVE (NEGATIVE); Blood Urine SMALL (NEGATIVE); Clarity Urine CLEAR (CLEAR); Color Urine LT. YELLOW (YELLOW); Glucose Urine UA NEGATIVE (NEGATIVE); Ketones Urine 15 mg/dL (NEGATIVE); Leukocyte Esterase Urine NEGATIVE (NEGATIVE); Nitrite Urine POSITIVE (NEGATIVE); Protein Urine NEGATIVE (NEG/TRACE); Urobilinogen Urine 0.2 EU/dL (0.2-1.0)
[2024-05-01 19:01] LABS: Bacteria Urine SMALL #/HPF (NONE SEEN); Cast Seen? NONE SEEN #/LPF (NONE SEEN); Crystals Seen? None Seen #/HPF (None Seen); Mucus Urine NONE SEEN (NONE SEEN); Squamous Epithelial Cell Urine RARE #/LPF (NONE/RARE)
[2024-05-01 19:02] LABS: Urine Culture Indicated YES
[2024-05-01] MEDS: NAPROXEN 250 MG TABLET 375 MG PO (21:48)
--- NOTE | 2024-05-01 23:13 | RESP.RT ---
titrated 02 down to 2.5L
[2024-05-02] VITALS (14 sets, daily range): BP systolic 114–161; BP diastolic 70–81; PULSE 77–99; TEMP 36.3–36.6; O2SAT 91–97
[2024-05-02] MEDS: METHYLPREDNISOLONE SOD SUCC PF 125 MG/2 ML VIAL IVP (03:06)
[2024-05-02] MEDS: IPRATROPIUM/ALBUTEROL SULFATE 3 ML AMPUL.NEB IH ×6 (03:52→23:07)
[2024-05-02 06:34] LABS: Basophils Percent Auto 0.1 % (0.2-2.0); Hematocrit 43.1 % (36.0-48.0); Hemoglobin 14.4 g/dL (12.0-16.0); Immature Granulocytes Abs Auto 0.05 10^3/uL (0.00-0.03); Immature Granulocytes Pct Auto 0.5 % (0.0-0.5); Lymphocytes Absolute Auto 0.3 10^3/uL (1.2-3.8); Lymphocytes Percent Auto 3.1 % (20.5-60.0); Mean Corpuscular HGB Conc 33.4 g/dL (29.9-35.2); Mean Corpuscular Volume 86.7 fL (81.0-99.0); Mean Platelet Volume 11.6 fL (9.5-13.5); Monocytes Absolute Auto 0.1 10^3/uL (0.3-0.8); Neutrophils Absolute Auto 8.7 10^3/uL (1.4-6.5); Neutrophils Percent Auto 95.3 % (43.0-75.0); Platelet Count 137 10^3/uL (150-450); Red Blood Count 4.97 10^6/uL (4.20-5.40); Red Cell Distribution Width 13.5 % (11.0-15.0); White Blood Count 9.1 10^3/uL (4.0-11.0)
--- NOTE | 2024-05-02 06:58 | CA_ITS ---
Patient Name: MATTHEW FRANCISCO MR#: [id number] : 1960 Exam Date: 05/02/2024 Ordering Doctor: DR JO ORTIZ . ECHOCARDIOGRAM REPORT PROCEDURE: CA ECHO DOPPLER COMPLETE INDICATIONS: elevated bnp, Dyspnea, COPD COMPARISON: None. DESCRIPTION: COMPLETE ECHOCARDIOGRAM Real-time transthoracic echocardiography with 2D, M-mode, spectral and color flow Doppler performed. QUALITY: Technical quality was good. LEFT VENTRICLE: Normal chamber size. Borderline left ventricular hypertrophy. Global left ventricular systolic function is normal. LV EF: Estimated left ventricular ejection fraction is 65-70%. DIASTOLIC: Diastolic function is indeterminate. ATRIAL SEPTUM: LEFT ATRIUM: Mild dilatation. RIGHT ATRIUM: Normal chamber size. RIGHT VENTRICLE: Normal chamber size. Normal right ventricular systolic function. TRICUSPID VALVE: Normal mobility and thickness. No stenosis with trivial regurgitation. Moderate pulmonary hypertension. RVSP 46 mmHg MITRAL VALVE: Normal mobility and thickness. No evidence of mitral valve stenosis. There is no mitral annular calcification. Trivial mitral regurgitation. AORTIC VALVE: Normal trileaflet appearance. No visible sclerosis. Normal leaflet mobility. No evidence of aortic valve stenosis. No aortic regurgitation. AORTIC ROOT: Normal diameter and appearance. PULMONIC VALVE: Normal thickness and mobility. No stenosis. No regurgitation. PERICARDIUM: Small mostly anterior pericardial effusion. IVC: Collapses with inspirations. Normal size. PLEURA: CONCLUSION: 1. Borderline left ventricular hypertrophy with normal systolic function. LVEF is estimated at 65 to 70%. 2. Normal right ventricular size and systolic function. 3. No significant valvular dysfunction. 4. Moderately elevated right-sided pressures. RVSP is 46 mmHg. 5. Small mostly anterior pericardial effusion. Adult Echocardiography Procedure Report Left Ventricle LVEDD (3.7 - 5.6 cm): 4.27 cm LVESD (2.2 - 4.0 cm): 2.75 cm LVIVS thickness (0.6 - 1.2 cm): 1.14 cm LVPW thickness (0.5 - 1.0 cm): 1.01 cm e': 0.10 m/s E - e': 7.80 LVOT Max Gradient: 3.65 mm[Hg] LVOT Area (cm2): 0.96 m/s Peak Velocity (LVOT): 0.96 m/s Mean Velocity (LVOT): 0.56 m/s LVOT Diameter 2.17 cm Left Ventricular Ejection Fraction: 65-70 % Left Atrium LA Volume Index (2D A2C): 23.00 ml/m2 Left Atrium Systolic Dimension: 3.32 cm Mitral Valve MV E to A Ratio: 0.77 Mitral Valve A-Wave Peak Velocity: 0.99 m/s Mitral Valve E-Wave Peak Velocity: 0.77 m/s Right Ventricle RV Internal Diastolic Dimension: 3.81 cm Aorta AO Root Diam: 3.38 cm Ascending Ao Diam: 3.06 cm Aortic Valve AoV Area (Peak Yony): 2.71 cm2, 2.75 cm2 AoV Area (VTI): 2.56 cm2, 2.60 cm2 Peak Velocity(Antegrade Flow): 1.29 m/s, 1.33 m/s Peak Gradient(Antegrade Flow): 6.64 mm[Hg], 7.09 mm[Hg] Mean Velocity(Antegrade Flow): 0.92 m/s, 0.92 m/s Mean Gradient(Antegrade Flow): 3.84 mm[Hg], 3.96 mm[Hg] Velocity Time Integral: 27.70 cm, 28.62 cm Tricuspid Valve Peak Velocity (Regurgitant Flow): 2.93 m/s, 3.28 m/s, 2.99 m/s Pulmonic Valve Mean Gradient: 1.96 mm[Hg], 2.08 mm[Hg] Mean Velocity: 0.66 m/s, 0.69 m/s Peak Velocity: 0.98 m/s, 0.99 m/s Peak Gradient: 3.95 mm[Hg], 3.81 mm[Hg], 3.81 mm[Hg] Right Atrium Right Atrium Systolic Pressure: 35.54 ml, 35.54 ml Dictated by: Dave Cordova M.D. on 05/02/2024 at 17:00 Approved by: Dave Cordova M.D. on 05/02/2024 at 17:03
[2024-05-02 07:05] LABS: Anion Gap 9.1; BUN Creatinine Ratio 22.7; Calcium 8.6 mg/dL (8.5-10.1); Carbon Dioxide 32.4 mmol/L (21.0-32.0); Chloride 95 mmol/L (98-107); Estimated GFR (African America >60 (>=60 mL/min/1.73m^2); Estimated GFR (Non-African Ame >60 (>=60 mL/min/1.73m^2); Glucose 117 mg/dL (74-106); Potassium 4.5 mmol/L (3.5-5.1); Sodium 132 mmol/L (136-145)
[2024-05-02 07:29] LABS: Troponin I High Sensitivity 15.2 pg/mL (4.0-51.3)
[2024-05-02] MEDS: SODIUM CHLORIDE 0.9% INHALATION 3 ML NEB 6 ML IH ×3 (07:40→11:53)
[2024-05-02] MEDS: AMLODIPINE BESYLATE 5 MG TABLET PO (09:07)
[2024-05-02] MEDS: LOSARTAN POTASSIUM 50 MG TABLET PO (09:08)
[2024-05-02] MEDS: METHYLPREDNISOLONE SOD SUCC PF 125 MG/2 ML VIAL 60 MG IVP ×3 (09:08→21:28)
[2024-05-02] MEDS: NAPROXEN 250 MG TABLET 375 MG PO ×2 (09:15→21:28)
--- NOTE | 2024-05-02 09:37 | CM.NOTE ---
Rounds made with Dr. Ward, pt continues to require oxygen. Pt will have cardiac echo today. No discharge.
[2024-05-02] MEDS: MAGNESIUM OXIDE 400 MG TABLET PO ×2 (11:48→21:27)
[2024-05-02] MEDS: FUROSEMIDE 40 MG/4 ML VIAL IVP (11:49)
--- NOTE | 2024-05-02 13:06 | P.PN_ITS ---
Progress Note: Subjective Subjective Interval history: Patient states her breathing is better, she does seem more restful with her breathing, denies history of heart failure Exam Constitutional Vital Signs, click to edit/add: Last Vital Signs Temp 97.5 F L 05/02/24 11:37 Pulse 93 H 05/02/24 11:37 Resp 16 05/02/24 11:37 BP 148/79 H 05/02/24 11:37 Pulse Ox 93 L 05/02/24 12:05 O2 Del Method Nasal Cannula 05/02/24 12:05 O2 Flow Rate 1 05/02/24 12:05 FiO2 50 05/01/24 11:54 Documenting provider has reviewed patient's vital signs: yes Common normals: no apparent distress Chest Common normals: inspection of chest normal and palpation of chest normal Respiratory Common normals: no retractions; abnormal respiratory effort (Note better than yesterday) Auscultation: rhonchi (Better air exchange), wheezes and diminished lung sounds Cardio Common normals: regular rate and regular rhythm Extremity Common normals: normal to inspection (No edema) Progress Note: Objective Labs Labs: Short CBC 05/02/24 Range/Units 06:02 WBC 9.1 (4.0-11.0) 10^3/uL Hgb 14.4 (12.0-16.0) g/dL Hct 43.1 (36.0-48.0) % Plt Count 137 L (150-450) 10^3/uL BMP 05/02/24 06:02 Sodium 132 L Potassium 4.5 Chloride 95 L Carbon Dioxide 32.4 H BUN 15.0 Creatinine 0.66 Glucose 117 H Calcium 8.6 Urine 05/01/24 Range/Units 18:00 Urine Color Lt. yellow (YELLOW) Urine Clarity Clear (CLEAR) Urine pH 6.0 (5.0-9.0) Ur Specific [place] 1.010 (1.005-1.025) Urine Protein Negative (NEG/TRACE) mg/dL Urine Glucose (UA) Negative (NEGATIVE) mg/dL Progress Note: A&P Assessment and Plan (1) Hypoxia: (2) COPD (chronic obstructive pulmonary disease): Plan Admission findings: Acute hypoxic respiratory failure requiring supplemental oxygen, O2 sat 71%, significant leukocytosis with left shift consistent with bacterial process as well as sinus tachycardia and respiratory distress resulting in acute exacerbation of COPD due to acute bronchitis resulting in sepsis. Acute hypoxic respiratory distress due to acute bronchitis resulting in acute exacerbation of COPD and sepsis-somewhat better today, continue with current treatment plan Acute systolic heart failure-with an elevated BNP-check echocardiogram, no history of heart failure for her in the past, will give 1 dose of Lasix today, no peripheral edema but significantly elevated BNP Thrombocytopenia-monitor daily Hyponatremia-monitor this closely she has had severe hyponatremia in the past Admission status: Patient with a severe hypoxia with O2 sat in the 70s, acute exacerbation of COPD secondary to acute bronchitis, complicated by acute systolic heart failure, medically necessary treatment will span 2 midnights. Inpatient status ?
[2024-05-02] MEDS: CEFTRIAXONE 1,000 MG in 0.9 % SODIUM CHLORIDE 50 ML 100 MG IV (14:34)
[2024-05-02] MEDS: LEVOFLOXACIN IN DEXTROSE 5 % 750 MG/150 ML PREMIX 100 MG IV (16:27)
--- NOTE | 2024-05-02 21:11 | RESP.RT ---
Patient states it hurts her dentures
[2024-05-02] MEDS: ATORVASTATIN CALCIUM 10 MG TABLET PO (21:28)
[2024-05-03] VITALS (12 sets, daily range): BP systolic 120–149; BP diastolic 68–79; PULSE 18–86; TEMP 36.3–36.6; O2SAT 81–96
[2024-05-03] MEDS: METHYLPREDNISOLONE SOD SUCC PF 125 MG/2 ML VIAL 60 MG IVP ×3 (03:15→17:30)
[2024-05-03] MEDS: IPRATROPIUM/ALBUTEROL SULFATE 3 ML AMPUL.NEB IH ×5 (03:55→23:00)
--- NOTE | 2024-05-03 04:00 | RESP.RT ---
Patient refused IPV states it hurts her mouth/dentures even after taking dentures out and it feels like it is giving her bone spurs
[2024-05-03 06:04] LABS: Anion Gap 8.1; BUN Creatinine Ratio 29.5; Calcium 8.5 mg/dL (8.5-10.1); Carbon Dioxide 34.1 mmol/L (21.0-32.0); Chloride 90 mmol/L (98-107); Estimated GFR (African America >60 (>=60 mL/min/1.73m^2); Estimated GFR (Non-African Ame >60 (>=60 mL/min/1.73m^2); Glucose 124 mg/dL (74-106); Potassium 4.2 mmol/L (3.5-5.1); Sodium 128 mmol/L (136-145)
[2024-05-03 06:10] LABS: Basophils Percent Auto 0.1 % (0.2-2.0); Hematocrit 41.6 % (36.0-48.0); Hemoglobin 14.1 g/dL (12.0-16.0); Immature Granulocytes Abs Auto 0.05 10^3/uL (0.00-0.03); Immature Granulocytes Pct Auto 0.6 % (0.0-0.5); Lymphocytes Absolute Auto 0.3 10^3/uL (1.2-3.8); Lymphocytes Percent Auto 3.5 % (20.5-60.0); Mean Corpuscular HGB Conc 33.9 g/dL (29.9-35.2); Mean Corpuscular Hemoglobin 28.8 pg (26.7-34.0); Mean Corpuscular Volume 84.9 fL (81.0-99.0); Mean Platelet Volume 11.7 fL (9.5-13.5); Monocytes Absolute Auto 0.2 10^3/uL (0.3-0.8); Monocytes Percent Auto 2.7 % (1.7-12.0); Neutrophils Percent Auto 93.1 % (43.0-75.0); Platelet Count 131 10^3/uL (150-450); Red Cell Distribution Width 13.5 % (11.0-15.0); White Blood Count 8.6 10^3/uL (4.0-11.0)
--- NOTE | 2024-05-03 07:07 | P.DS_ITS ---
DS: Providers Provider Date of admission: 05/01/24 13:59 Primary care physician: MICHELLE DESAI Consults: 05/01/24 13:04 Occupational Therapy Eval and Treat Routine Reason for consultation: Only if needed for Rehab Has provider been notified: No Physical Therapy Eval and Treat Routine Reason for consultation: Eval and Treat Has provider been notified: No DS: Diagnosis Discharge Diagnosis (1) Hypoxia: (2) COPD (chronic obstructive pulmonary disease): Plan Admission findings: Acute hypoxic respiratory failure requiring supplemental oxygen, O2 sat 71%, significant leukocytosis with left shift consistent with bacterial process as well as sinus tachycardia and respiratory distress re sulting in acute exacerbation of COPD due to acute bronchitis resulting in sepsis. Acute hypoxic respiratory distress due to acute bronchitis resulting in acute exacerbation of COPD and sepsis-somewhat better today, continue with current treatment plan Acute systolic heart failure-with an elevated BNP-check echocardiogram, no h istory of heart failure for her in the past, will give 1 dose of Lasix today, no peripheral edema but significantly elevated BNP Thrombocytopenia-monitor daily Hyponatremia-monitor this closely she has had severe hyponatremia in the past Admission status: Patient with a severe hypoxia with O2 sat in the 70s, acute exacerbation of COPD secondary to acute bronchitis, complicated by acute systolic heart failure, medically necessary treatment will span 2 midnights. Inpatient status ? DS: Summary Status at Discharge Overall status at discharge: patient is not back to baseline Time Spent with Patient Time attestation: Total time spent providing and/or coordinating discharge services: Time spent: greater than 30 minutes Exam Constitutional Vital Signs, click to edit/add: Last Vital Signs Temp 97.8 F 05/03/24 03:41 Pulse 80 05/03/24 03:55 Resp 18 05/03/24 03:55 BP 149/75 H 05/03/24 03:41 Pulse Ox 81 L 05/03/24 05:13 O2 Del Method Room Air 05/03/24 05:13 O2 Flow Rate 1 05/03/24 03:55 FiO2 50 05/01/24 11:54 DS: Data Data Completed and Pending Labs on day of discharge: Labs from last 24 hours 05/03/24 05/02/24 05:18 06:02 WBC 8.6 RBC 4.90 Hgb 14.1 Hct 41.6 MCV 84.9 MCH 28.8 MCHC 33.9 RDW 13.5 Plt Count 131 L MPV 11.7 Neut % (Auto) 93.1 H Lymph % (Auto) 3.5 L [place] % (Auto) 2.7 Eos % (Auto) 0.0 L Baso % (Auto) 0.1 L Neut # (Auto) 8.0 H Lymph # (Auto) 0.3 L [place] # (Auto) 0.2 L Eos # (Auto) 0.0 Baso # (Auto) 0.0 Abs Immat Gran (auto) 0.05 H Imm/Tot Granulo (auto) 0.6 H Sodium 128 L 132 L Potassium 4.2 4.5 Chloride 90 L 95 L Carbon Dioxide 34.1 H 32.4 H Anion Gap 8.1 9.1 BUN 23.0 H 15.0 Creatinine 0.78 0.66 Est GFR ( Amer) >60 >60 Est GFR (Non-Af Amer) >60 >60 BUN/Creatinine Ratio 29.5 22.7 Glucose 124 H 117 H Calcium 8.5 8.6 Troponin I High Sens 15.2 NT-Pro-B Natriuret Pep 3072.0 H* Discharge Plan Discharge Condition: Serious Discharge Medications: No Action albuterol sulfate 2.5 mg /3 mL (0.083 %) solution for nebulization 2.5 mg inhalation Q6H PRN (Reason: shortness of breath or wheezing) albuterol sulfate 90 mcg/actuation HFA aerosol inhaler 2 puff INHALATION Q6H PRN (Reason: shortness of breath or wheezing) amlodipine-olmesartan 5-20 mg tablet 1 tab PO DAILY estradiol 0.05 mg/24 hr patch weekly 1 patch transdermal QWEEK Rx Instructions: EVERY WEEK FOR 3 WEEKS AND 1 WEEK OFF hydrocodone-acetaminophen 10-325 mg tablet 1 tab PO Q6H PRN (Reason: pain) ipratropium bromide 42 mcg (0.06 %) spray,non-aerosol 1 spray INTRANASAL BID naproxen 375 mg tablet 375 mg PO Q12H ondansetron HCl 4 mg tablet 4 mg PO Q8H PRN (Reason: nausea and vomiting) simvastatin 20 mg tablet 20 mg PO DAILY Print Language: Bur[place]ian
--- NOTE | 2024-05-03 09:55 | CM.NOTE ---
Rounds made with Dr. Ward, pt continues to require oxygen. RN will continue to attempt to wean pt today. Discussed with pt possible need to discharge on home oxygen. Dr. Ramírez will re-evaluate tomorrow as hospitalist.
[2024-05-03] MEDS: NAPROXEN 250 MG TABLET 375 MG PO ×2 (10:00→21:19)
[2024-05-03] MEDS: LOSARTAN POTASSIUM 50 MG TABLET PO (10:00)
[2024-05-03] MEDS: AMLODIPINE BESYLATE 5 MG TABLET PO (10:00)
[2024-05-03] MEDS: MAGNESIUM OXIDE 400 MG TABLET PO ×2 (10:00→21:19)
[2024-05-03] MEDS: FUROSEMIDE 40 MG/4 ML VIAL IVP ×2 (10:44→21:23)
[2024-05-03] MEDS: CEFTRIAXONE 1,000 MG in 0.9 % SODIUM CHLORIDE 50 ML 100 MG IV (14:12)
[2024-05-03] MEDS: 0.9 % SODIUM CHLORIDE 250 ML 10 ML IV (14:13)
[2024-05-03] MEDS: LEVOFLOXACIN IN DEXTROSE 5 % 750 MG/150 ML PREMIX 100 MG IV (15:21)
--- NOTE | 2024-05-03 18:16 | P.PN_ITS ---
Progress Note: Subjective Subjective Interval history: Patient seen and medical surgical floor this morning, she states her breathing does feel better and she does feel more comfortable with her breathing but still having significant hypoxia with off of supplemental oxygen she dips down into the mid 80s. Exam Constitutional Vital Signs, click to edit/add: Last Vital Signs Temp 97.8 F 05/03/24 16:00 Pulse 80 05/03/24 16:00 Resp 20 05/03/24 16:00 BP 137/68 05/03/24 16:00 Pulse Ox 85 L 05/03/24 16:00 O2 Del Method Room Air 05/03/24 16:00 O2 Flow Rate 1 05/03/24 15:49 FiO2 50 05/01/24 11:54 Documenting provider has reviewed patient's vital signs: yes Common normals: no apparent distress Chest Common normals: inspection of chest normal and palpation of chest normal Respiratory Common normals: no retractions; abnormal respiratory effort (Note better than yesterday) Auscultation: rhonchi (Better air exchange), wheezes and diminished lung sounds Cardio Common normals: regular rate and regular rhythm Extremity Common normals: normal to inspection (No edema) Progress Note: Objective Labs Labs: Short CBC 05/03/24 Range/Units 05:18 WBC 8.6 (4.0-11.0) 10^3/uL Hgb 14.1 (12.0-16.0) g/dL Hct 41.6 (36.0-48.0) % Plt Count 131 L (150-450) 10^3/uL BMP 05/03/24 05:18 Sodium 128 L Potassium 4.2 Chloride 90 L Carbon Dioxide 34.1 H BUN 23.0 H Creatinine 0.78 Glucose 124 H Calcium 8.5 Progress Note: A&P Assessment and Plan (1) Hypoxia: (2) COPD (chronic obstructive pulmonary disease): Plan Admission findings: Acute hypoxic respiratory failure requiring supplemental oxygen, O2 sat 71%, significant leukocytosis with left shift consistent with bacterial process as well as sinus tachycardia and respiratory distress resulting in acute exacerbation of COPD due to acute bronchitis resulting in sepsis. Acute hypoxic respiratory distress due to acute bronchitis resulting in acute exacerbation of COPD and sepsis-continues to get better able to wean supplemental oxygen, continue with current treatment plan, hopefully can wean off of supplemental oxygen and possible discharge tomorrow Acute systolic heart failure-with an elevated BNP-echocardiogram with good ejection fraction she has had good diuresis, 4.1 L in total with a net of 1.8. Thrombocytopenia-monitor daily, down somewhat today Hyponatremia-continue to monitor-Down somewhat today Acute UTI-culture pending Admission status: Patient with a severe hypoxia with O2 sat in the 70s, acute exacerbation of COPD secondary to acute bronchitis, complicated by acute systolic heart failure, medically necessary treatment will span 2 midnights. Inpatient status ?
[2024-05-03] MEDS: ATORVASTATIN CALCIUM 10 MG TABLET PO (21:23)
[2024-05-04] VITALS (7 sets, daily range): BP systolic 148; BP diastolic 75; PULSE 75–81; TEMP 36.4; O2SAT 86–97
[2024-05-04] MEDS: METHYLPREDNISOLONE SOD SUCC PF 125 MG/2 ML VIAL 60 MG IVP ×2 (04:04→09:16)
[2024-05-04] MEDS: IPRATROPIUM/ALBUTEROL SULFATE 3 ML AMPUL.NEB IH ×3 (04:17→11:15)
[2024-05-04 06:52] LABS: BUN Creatinine Ratio 27.4; Calcium 8.8 mg/dL (8.5-10.1); Carbon Dioxide 35.9 mmol/L (21.0-32.0); Chloride 88 mmol/L (98-107); Estimated GFR (African America >60 (>=60 mL/min/1.73m^2); Estimated GFR (Non-African Ame >60 (>=60 mL/min/1.73m^2); Glucose 123 mg/dL (74-106); Potassium 3.9 mmol/L (3.5-5.1); Sodium 128 mmol/L (136-145)
[2024-05-04 06:55] LABS: Basophils Percent Auto 0.2 % (0.2-2.0); Eosinophils Percent Auto 0.1 % (0.9-7.0); Hematocrit 40.6 % (36.0-48.0); Hemoglobin 13.9 g/dL (12.0-16.0); Immature Granulocytes Abs Auto 0.07 10^3/uL (0.00-0.03); Immature Granulocytes Pct Auto 0.8 % (0.0-0.5); Lymphocytes Absolute Auto 0.3 10^3/uL (1.2-3.8); Lymphocytes Percent Auto 2.9 % (20.5-60.0); Mean Corpuscular HGB Conc 34.2 g/dL (29.9-35.2); Mean Corpuscular Volume 84.6 fL (81.0-99.0); Mean Platelet Volume 11.6 fL (9.5-13.5); Monocytes Absolute Auto 0.4 10^3/uL (0.3-0.8); Monocytes Percent Auto 4.8 % (1.7-12.0); Neutrophils Absolute Auto 8.2 10^3/uL (1.4-6.5); Neutrophils Percent Auto 91.2 % (43.0-75.0); Platelet Count 130 10^3/uL (150-450); Red Cell Distribution Width 13.2 % (11.0-15.0); White Blood Count 8.9 10^3/uL (4.0-11.0)
[2024-05-04] MEDS: LOSARTAN POTASSIUM 50 MG TABLET PO (09:15)
[2024-05-04] MEDS: MAGNESIUM OXIDE 400 MG TABLET PO (09:15)
[2024-05-04] MEDS: AMLODIPINE BESYLATE 5 MG TABLET PO (09:16)
[2024-05-04] MEDS: NAPROXEN 250 MG TABLET 375 MG PO (09:22)
--- NOTE | 2024-05-04 11:42 | PM.DS1 ---
DS: Providers Provider Date of admission: 05/01/24 13:59 Primary care physician: MICHELLE DESAI Consults: 05/01/24 13:04 Occupational Therapy Eval and Treat Routine Reason for consultation: Only if needed for Rehab Has provider been notified: No Physical Therapy Eval and Treat Routine Reason for consultation: Eval and Treat Has provider been notified: No DS: Diagnosis Discharge Diagnosis (1) COPD with acute exacerbation: (2) Acute hypoxemic respiratory failure: (3) Benign essential hypertension: Plan Reason for admission: See ER note and H&P for details. 63 y/o female to ER with SOB. History of COPD and c/o increased cough over past few days. Chest tight and hard to catch breath. Severe fatigue with exertion. To PCP and SpO2 75% on room air and to ER by EMS. Placed on high flow oxygen. Chest x-ray negative. Admitted for treatment. Hospital course: Started steroids, antibiotics, and breathing treatments. Resumed home medication. Gradually improved in hospital. Weaned off high flow oxygen and on nasal canula. Able to wean to room air at rest but continued to desaturate with activity or movement. SOB improved and mild cough. Afebrile. Performed walk test on room air on day of discharge and patient desaturated to 86%. Discharged home in stable condition. Will arrange for home O2 with portability at 2 LPM. Take antibiotics and steroids as prescribed. Follow with PCP in 1-2 weeks. DS: Summary Time Spent with Patient Time attestation: Total time spent providing and/or coordinating discharge services: Time spent: greater than 30 minutes Exam Constitutional Vital Signs, click to edit/add: Last Vital Signs Temp 97.6 F 05/04/24 08:00 Pulse 77 05/04/24 11:16 Resp 20 05/04/24 08:00 BP 148/75 H 05/04/24 08:00 Pulse Ox 91 L 05/04/24 11:16 O2 Del Method Room Air 05/04/24 11:16 O2 Flow Rate 1 05/04/24 04:17 FiO2 50 05/01/24 11:54 Documenting provider has reviewed patient's vital signs: yes Common normals: oriented x3 and alert HENMT Common normals: normocephalic Eye Common normals: PERRL and EOMs intact bilaterally Respiratory Common normals: normal respiratory effort Auscultation: wheezes expiratory wheezes and scattered wheezes Cardio Common normals: regular rate, regular rhythm, no gallops, no murmurs and no rub GI Common normals: Normal to inspection, nondistended, normoactive bowel sounds present and non-tender Extremity Common normals: no pedal edema DS: Data Data Completed and Pending Labs on day of discharge: Labs from last 24 hours 05/04/24 06:10 WBC 8.9 RBC 4.80 Hgb 13.9 Hct 40.6 MCV 84.6 MCH 29.0 MCHC 34.2 RDW 13.2 Plt Count 130 L MPV 11.6 Neut % (Auto) 91.2 H Lymph % (Auto) 2.9 L [place] % (Auto) 4.8 Eos % (Auto) 0.1 L Baso % (Auto) 0.2 Neut # (Auto) 8.2 H Lymph # (Auto) 0.3 L [place] # (Auto) 0.4 Eos # (Auto) 0.0 Baso # (Auto) 0.0 Abs Immat Gran (auto) 0.07 H Imm/Tot Granulo (auto) 0.8 H Sodium 128 L Potassium 3.9 Chloride 88 L Carbon Dioxide 35.9 H Anion Gap 8.0 BUN 23.0 H Creatinine 0.84 Est GFR ( Amer) >60 Est GFR (Non-Af Amer) >60 BUN/Creatinine Ratio 27.4 Glucose 123 H Calcium 8.8 NT-Pro-B Natriuret Pep 1454.0 H* Preliminary micro results at discharge 05/01/24 11:02 Blood Culture Result 2 - Preliminary Blood NO GROWTH AT 36-48 HOURS. FINAL TO FOLLOW. 05/01/24 10:55 Blood Culture Result 1 - Preliminary Blood NO GROWTH AT 36-48 HOURS. FINAL TO FOLLOW. Discharge Plan Discharge Disposition: Home, Self-Care Condition: Serious Discharge Medications: New cefdinir 300 mg capsule 300 mg PO BID 10 Days Qty: 20 0RF levofloxacin 750 mg tablet 750 mg PO DAILY 7 Days Qty: 7 0RF prednisone 10 mg tablets,dose pack 10 mg PO DAILY Qty: 39 0RF Rx Instructions: 6 PO daily x 3 days, then 4 PO daily x 3 days, then 2 PO daily x 3 days, then 1 PO daily x 3 days Continued albuterol sulfate 2.5 mg /3 mL (0.083 %) solution for nebulization 2.5 mg inhalation Q6H PRN (Reason: shortness of breath or wheezing) albuterol sulfate 90 mcg/actuation HFA aerosol inhaler 2 puff INHALATION Q6H PRN (Reason: shortness of breath or wheezing) amlodipine-olmesartan 5-20 mg tablet 1 tab PO DAILY estradiol 0.05 mg/24 hr patch weekly 1 patch transdermal QWEEK Rx Instructions: EVERY WEEK FOR 3 WEEKS AND 1 WEEK OFF hydrocodone-acetaminophen 10-325 mg tablet 1 tab PO Q6H PRN (Reason: pain) ipratropium bromide 42 mcg (0.06 %) spray,non-aerosol 1 spray INTRANASAL BID naproxen 375 mg tablet 375 mg PO Q12H ondansetron HCl 4 mg tablet 4 mg PO Q8H PRN (Reason: nausea and vomiting) simvastatin 20 mg tablet 20 mg PO DAILY Activity: resume usual activities as tolerated and wear oxygen at all times Diet: advance to your usual diet Print Language: Wallisian Forms: Portal Instructions
--- NOTE | 2024-05-06 15:35 | CM.DCFOLLOWU ---
1st attempt 05/06/24, no answer
--- NOTE | 2024-05-09 15:05 | CM.DCFOLLOWU ---
2nd attempt 05/09/24, no answer
--- NOTE | 2024-05-13 12:03 | CM.DCFOLLOWU ---
Person spoke with:patient How are you feeling? thankful to be home, hanging in there. Went back to ED and was transferred How is your pain? managed as of now Did you understand your discharge instructions?yes Do you have any questions about your discharge instructions?no Were you given any prescriptions at discharge?yes Were you able to get your prescriptions filled?yes Do you understand how to take your medications as ordered?yes Do you have any questions about your follow up appointment and do you plan to keep your follow up appointment? no questions, scheduled to go to see PCP tomorrow Is there anything else that you would like to discuss?no Questions/Comments/Concerns/Other:none
== END 2024-05-04 15:30 | disposition home or self-care (01) | DRG 190 ==
LOC: ER 12:41 → MS 14:02
PROVIDERS: Admitting Provider Family Medicine; Emergency Provider Emergency Medicine; PCP Internal Medicine; Visit Provider Family Medicine
DX: J44.1 Chronic obstructive pulmonary disease with (acute) exacerbation (principal); I50.21 Acute systolic (congestive) heart failure; J96.01 Acute respiratory failure with hypoxia; E87.1 Hypo-osmolality and hyponatremia; N39.0 Urinary tract infection, site not specified; J44.0 Chronic obstructive pulmonary disease with (acute) lower respiratory infection; Z85.41 Personal history of malignant neoplasm of cervix uteri; Z90.710 Acquired absence of both cervix and uterus; J20.9 Acute bronchitis, unspecified; D69.6 Thrombocytopenia, unspecified; I11.0 Hypertensive heart disease with heart failure; Z99.81 Dependence on supplemental oxygen; Z79.899 Other long term (current) drug therapy
CPT/HCPCS: 36415; 36600; 71045; 80048; 80053; 81001; 82805; 83605; 83735; 83880; 84436; 84443; 84484; 85007; 85025; 85027; 85610; 87040; 87070; 87086; 87804; 87811; 90674; 90677; 93005; 93306; 94640; 94667; 94668; 94761; 94799; 96365; 97162; 97165; 99285; 99406; J0696; J1940; J2919

== ENCOUNTER 2024-05-09 10:27 | Emergency (ER) | payer OTHER, SELFPAY ==
[2024-05-09] VITALS (16 sets, daily range): BP systolic 120–178; BP diastolic 58–116; PULSE 89; TEMP 36.7; O2SAT 91–97; BMI 21.4
--- OUTSIDE RECORDS SUMMARY | 2024-05-09 10:37 | XMS_ITS | CCD ---
Author Organization [facility] Care Team Providers Care President & Ceo Name Role Phone Jacob Frances Unavailable BAILEY Lee Primary Care Provider Colin Mann Attending Provider [phone] Hi, DR Jeffers Consulting Unavailable GISELLE, DR MARTINEZ Primary Care Unavailable SEA KAHN Attending Unavailable CRISS, SEA Admitting Unavailable SEA KAHN Consulting Unavailable BRENNEN, DR SHERON Marin Admitting Unavailable DORIAN, DR KURT Partida Consulting Unavailable GISELLE, DR MARTINEZ Primary Care Unavailable HEMJOSE, DR SHERON Marin Attending Unavailable HEMJOSE, DR [...] Admitting Unavailable Colin Lee Primary Care Unavailable COLIN LEE Attending Unavailable SHERON HUTTON Attending Unavailable COLIN LEE Attending Unavailable SHERON HUTTON Attending Unavailable COLIN LEE Attending Unavailable COLIN LEE Attending Unavailable COLIN LEE Attending Unavailable Allergies Allergy Classification Reported Allergen(s) Allergy Type Date of Onset Reaction(s) Facility (3 sources) Esomeprazole Drug Allergy 04-18-19 25 Unknown, Unknown Reaction [facility] (2 sources) Penicillins (Antibiotic) Propensity to adverse reactions anaphylaxis [facility] Other (1 source) Esomeprazole Drug Allergy 04-18-19 14 [facility] (2 sources) Penicillins Drug allergy (disorder) 12-12-20 13 anaphylaxis [facility] (14 sources) Esomeprazole Drug Allergy 09-08-19 23 Unknown [facility] (14 sources) Penicillin G Drug Allergy 09-08-19 23 Unknown [facility] (1 source) Esomeprazole Drug Allergy 02-08-20 [facility] (1 source) Penicillins Drug allergy (disorder) 02-08-20 [facility] Medications Current Medications Medication Drug Class(es) Dates Sig (Normalized) Sig (Original) acetaminophen 325 mg / HYDROcodone bitartrate 10 mg oral tablet (20 sources) Opioid Agonist Start: 04-18-2024 Hydrocodone-Acetam inophen 10-325 mg tablet Active 1 TAB PO as needed April 18, 2024 12:00am Start: 10-23-2023 End: 05-23-2024 take 1 tablet by mouth every six hours for pain HYDROcodone-acetaminophen (Ellinger) 10-325 MG tablet Indications: Generalized osteoarthrosis, involving multiple sites , Degenerative disc disease, lumbar Take 1 tablet by mouth every 6 (six) hours if needed for severe pain 120 tablet 04/23/2024 05/23/2024 Active Start: 04-17-2023 End: 06-16-2023 take 1 tablet by mouth every six hours for pain HYDROcodone-acetaminophen (Ellinger) 10-325 MG tablet Indications: Generalized osteoarthrosis, involving multiple sites , Degenerative disc disease, lumbar Take 1 tablet by mouth every 6 (six) hours if needed for severe pain 120 tablet 0 05/17/2023 06/16/2023 Active Vicodin Active [id number] actuat albuterol 0.09 mg/actuat metered dose [...] / olmesartan medoxomil 20 mg oral tablet (17 sources) Dihydropyridine Calcium Channel Harley, Angiotensin 2 [...] Active cyclobenzaprine hydrochloride 10 mg oral tablet (16 sources) Muscle Relaxant take 1 tablet by mouth every eight hours as needed cyclobenzaprine (Flexeril) 10 MG tablet Take 10 mg by mouth every 8 (eight) hours if needed for muscle spasms. Active 168 hr estradiol 0.40731 mg/hr transdermal system (15 sources) Estrogen Start: 04-18-19 25 Estradiol 0.05 [...] / vilanterol 0.025 mg/actuat dry powder inhaler (14 sources) Anticholinergic, Corticosteroid, beta2-Adrenergic Agonist take 1 puff(s) by inhalation once daily Bmqhsrbqhaj-Bogaxucdf-Xmxobt (Trelegy Ellipta) 100-62.5-25 MCG/ACT aerosol powder Inhale [...] bromide 0.042 mg/actuat metered dose nasal spray (16 sources) Anticholinergic Star t: 04-03 25 take 1 spray(s) nasal route twice daily Ipratropium [place] 21 mcg (0.03 %) spray,non-aerosol Active 2 [...] Active meclizine hydrochloride 12.5 mg oral tablet (15 sources) Antiemetic Start: 04-18-2024 take 2 tablets [...] Active metoprolol tartrate 25 mg oral tablet (14 sources) beta-Adrenergic Harley take 1 tablet by mouth every eight hours as needed metoprolol tartrate (Lopressor) 25 MG tablet Take 25 mg by mouth every 8 (eight) hours if needed (palpitations). Active naproxen 375 mg oral tablet (17 sources) Nonsteroidal Anti-inflammatory Drug Start: 04-18-19 take [...] DAY Active ondansetron 4 mg oral tablet (15 sources) Serotonin-3 Receptor Antagonist Start: 01-15-2024 take [...] 2024 12:00am simvastatin 20 mg oral tablet (17 sources) HMG-CoA Reductase Inhibitor Start: 10-09-2023 take [...] colonoscopy sodium chloride 1000 mg oral tablet (14 sources) take 4 tablets by mouth in [...] Date Documented Da te Episodic/Chronic Anxiety disorders (14 sources) Anxiety disorder; Translations: [Anxiety disorder, unspecified] Onset: 3 09-07-2022 Chronic Biliary tract disease (16 sources) Obstruction of bile duct; Translations: [Obstruction of bile duct] Onset: 3 09-07-2022 Chronic Cardiac dysrhythmias (14 sources) Paroxysmal supraventricular tachycardia; Translations: [PSVT (paroxysmal supraventricular tachycardia)] Onset: 3 09-07-2022 Chronic Chronic obstructive pulmonary disease and bronchiectasis (20 sources) Pulmonary emphysema; Translations: [Emphysema, unspecified] Onset: 3 09-07-2022 Chronic Disorders of lipid metabolism (16 sources) Pure hypercholesterolemia, unspecified; Translations: [Mixed hyperlipidemia] Onset: 2 09-07-2022 Chronic Essential hypertension (16 sources) Essential (primary) hypertension; Translations: [Benign essential hypertension] Onset: 2 09-07-2022 Chronic Fracture of lower limb (4 sources) Other fracture of right lower leg, initial encounter for closed fracture; Translations: [OTH FX RT LOWER LEG INITIAL CLOS FX] Onset: 2 Episodic Miscellaneous mental health disorders (14 sources) Psychosomatic factor in physical condition; Translations: [Psychological and behavioral factors associated with disorders or diseases classified elsewhere] Onset: 3 09-07-2022 Chronic Nonmalignant breast conditions (14 sources) Fibrocystic disease of breast; Translations: [Diffuse cystic mastopathy of unspecified breast] Onset: 3 09-07-2022 Chronic Nutritional deficiencies (14 sources) Vitamin D deficiency; Translations: [Vitamin D [...] [Hypoxemia] 05-01-2024 Episodic Other nervous system disorders (14 sources) Mononeuritis; Translations: [Mononeuropathy, unspecified] Onset: 3 09-07-2022 Chronic Other nervous system disorders (14 sources) Chronic pain; Translations: [Other chronic pain] Onset: 3 09-07-2022 Chronic Other nutritional; endocrine; and metabolic disorders (4 sources) Weight loss; Translations: [Abnormal weight loss] 02-08-2024 Episodic Other upper respiratory disease (14 sources) Chronic rhinitis; Translations: [Chronic rhinitis] Onset: 3 09-18-2022 Chronic Other upper respiratory infections (20 sources) Chronic sinusitis; Translations: [Chronic sinusitis, unspecified] Onset: 3 09-07-2022 Chronic Spondylosis; intervertebral disc disorders; other back problems (20 sources) Degeneration of lumbar intervertebral disc; Translations: [Other intervertebral disc degeneration, lumbar region] Onset: 3 05-17-2023 Chronic Substance-related disorders (15 sources) Nicotine dependence, cigarettes, uncomplicated; Translations: [Tobacco [...] Onset: 04-14-2021 Episodic Fluid and electrolyte disorders (18 sources) Hyponatremia; Translations: [Hypo-osmolality and hyponatremia] Onset: 09-07-2022 09-07-2022 Episodic Other aftercare (1 source) Other long-term (current) drug therapy; Translations: [OTH HALF-WAY CURRENT DRUG THERAPY] Onset: 08-18-2021 Episodic Other circulatory disease (14 sources) Orthostatic hypotension; Translations: [Orthostatic hypotension] Onset: 09-07-2022 09-07-2022 Episodic Other disorders of stomach and duodenum (14 sources) Cyclical vomiting syndrome; Translations: [Cyclical vomiting syndrome unrelated to migraine] Onset: 09-07-2022 09-07-2022 Episodic Other lower respiratory disease (14 sources) Dyspnea; Translations: [Shortness of breath] Onset: 09-07-2022 09-07-2022 Episodic Other nervous system disorders (14 sources) Ataxia; Translations: [Ataxia, unspecified] Onset: 09-07-2022 09-07-2022 Episodic Other non-traumatic joint disorders (1 source) Pain in right ankle and joints of right foot; Translations: [Pain in right ankle and joints of right foot] Onset: 03-04-2022 Episodic Other nutritional; endocrine; and metabolic disorders (14 sources) Excessive thirst; Translations: [Polydipsia] Onset: 09-07-2022 09-07-2022 Episodic Other screening for suspected conditions (not mental disorders or infectious disease) (6 sources) CT of abdomen abnormal; Translations: [Abnormal findings on diagnostic imaging of other abdominal regions, including retroperitoneum] Onset: 08-11-2021 Episodic Results Test Name Value Interpretation Reference Range Facility CBC AUTO DIFFon 08-17-2021 BASO # 0.1 103/ul Normal 0.0-0.1 [facility] Comment on above: Performed By: #### C BC #### [facility] [address] [place] [address] Dr. Moshe Fontenot Basophils/100 WBC (Bld) 0.7 % Normal 0.2-2.0 [facility] Comment on above: Performed By: #### C BC #### [facility] [address] [place] [address] Dr. Moshe Fontenot EO # 0.1 103/ul Normal 0.0-0.7 [facility] Comment on above: Performed By: #### C BC #### [facility] [address] [place] [address] Dr. Moshe Fontenot Eosinophils/100 WBC (Bld) 1.5 % Normal 0.9-7.0 [facility] Comment on above: Performed By: #### C BC #### [facility] [address] [place] [address] Dr. Moshe Fontenot Erythrocyte distribution width (RBC) [Ratio] 14.4 % Normal 11.0-15.0 [facility] Comment on above: Performed By: #### C BC #### [facility] [address] [place] [address] Dr. Moshe Fontenot Hematocrit (Bld) [Volume fraction] 43.3 % Normal 36.0-48.0 [facility] Comment on above: Performed By: #### C BC #### [facility] [address] [place] [address] Dr. Moshe Fontenot Hemoglobin (Bld) [Mass/Vol] 14.4 g/dL Normal 12.0-16.0 [facility] Comment on above: Performed By: #### C BC #### [facility] [address] [place] [address] Dr. Moshe Fontenot IG # 0.04 10e3/ul Critically high 0.00-0.03 [facility] Comment on above: Performed By: #### C BC #### [facility] [address] [place] [address] Dr. Moshe Fontenot IG % 0.5 % Normal 0.0-0.5 [facility] Comment on above: Performed By: #### C BC #### [facility] [address] [place] [address] Dr. Moshe Fontenot LYMPH # 1.2 103/ul Normal 1.2-3.8 [facility] Comment on above: Performed By: #### C BC #### [facility] [address] [place] [address] Dr. Moshe Fontenot Lymphocytes/100 WBC (Bld) 16.3 % Critically low 20.5-60.0 [facility] Comment on above: Performed By: #### C BC #### [facility] [address] [place] [address] Dr. Moshe Fontenot MANUAL DIFF REQ NO Normal [facility] Comment on above: Performed By: #### C BC #### [facility] [address] [place] [address] Dr. Moshe Fontenot MCH (RBC) [Entitic mass] 29.6 pg Normal 26.7-34.0 [facility] Comment on above: Performed By: #### C BC #### [facility] [address] [place] [address] Dr. Moshe Fontenot MCHC (RBC) [Mass/Vol] 33.3 g/dL Normal 29.9-35.2 [facility] Comment on above: Performed By: #### C BC #### [facility] [address] [address] [address] Moshe Fontenot MCV (RBC) [Entitic vol] 88.9 fL Normal 81.0-99.0 [facility] Comment on above: Performed By: #### C BC #### [facility] [address] [address] [address] Moshe Fontenot MONO # 0.4 103/ul Normal 0.3-0.8 [facility] Comment on above: Performed By: #### C BC #### [facility] [address] [place] [address] Dr. Moshe Fontenot Monocytes/100 WBC (Bld) 5.8 % Normal 1.7-12.0 [facility] Comment on above: Performed By: #### C BC #### [facility] [address] [place] [address] Dr. Moshe Fontenot NEUT # 5.6 103/ul Normal 1.4-6.5 [facility] Comment on above: Performed By: #### C BC #### [facility] [address] [place] [address] Dr. Moshe Fontenot Neutrophils/100 WBC (Bld) 75.2 % Critically high 43.0-75.0 [facility] Comment on above: Performed By: #### C BC #### [facility] [address] [place] [address] Dr. Moshe Fontenot Platelet mean volume (Bld) [Entitic vol] 10.7 fL Normal 9.5-13.5 [facility] Comment on above: Performed By: #### C BC #### [facility] [address] [place] [address] Dr. Moshe Fontenot PLT 165 103/ul Normal 150-450 [facility] Comment on above: Performed By: #### C BC #### [facility] [address] [place] [address] Dr. Moshe Fontenot RBC 4.87 106/ul Normal 4.20-5.40 [facility] Comment on above: Performed By: #### C BC #### [facility] [address] [address] [address] Moshe Fontenot WBC 7.4 103/ul Normal 4.0-11.0 [facility] Comment on above: Performed By: #### C BC #### [facility] [address] [address] [address] Moshe Fontenot PROF 14(COMP METB)on 022 Albumin [Mass/Vol] 3.6 g/dL Normal 3.4-5.0 [facility] Comment on above: Performed By: #### C MP, HSTROPN #### [facility] [address] [address] [address] Moshe Fontenot Albumin/Globulin [Mass ratio] 1.2 {ratio} Normal [facility] Comment on above: Performed By: #### C MP, HSTROPN #### [facility] [address] [place] [address] Dr. Moshe Fontenot ALP [Catalytic activity/Vol] 115 U/L Normal 46-116 [facility] Comment on above: Performed By: #### C MP, HSTROPN #### [facility] [address] [address] [address] Moshe Fontenot ALT [Catalytic activity/Vol] 21 U/L Normal 14-59 [facility] Comment on above: Performed By: #### C MP, HSTROPN #### [facility] [address] [address] [address] Moshe Fontenot Anion gap [Moles/Vol] 12.7 mmol/L Normal [facility] Comment on above: Performed By: #### C MP, HSTROPN #### [facility] [address] [address] [address] Moshe Fontenot AST [Catalytic activity/Vol] 21 U/L Normal 15-37 [facility] Comment on above: Performed By: #### C MP, HSTROPN #### [facility] [address] [place] [address] Dr. Moshe Fonteont Bilirubin [Mass/Vol] 0.3 mg/dL Normal 0.2-1.0 [facility] Comment on above: Performed By: #### C MP, HSTROPN #### [facility] [address] [address] [address] Moshe Fontenot Calcium [Mass/Vol] 8.6 mg/dL Normal 8.5-10.1 [facility] Comment on above: Performed By: #### C MP, HSTROPN #### [facility] [address] [address] [address] Moshe Fontenot Chloride [Moles/Vol] 99 mmol/L Normal 98-107 [facility] Comment on above: Performed By: #### C MP, HSTROPN #### [facility] [address] [place] [address] Dr. Moshe Fontenot CO2 [Moles/Vol] 27.5 mmol/L Normal 21.0-32.0 [facility] Comment on above: Performed By: #### C MP, HSTROPN #### [facility] [address] [place] [address] Dr. Moshe Fontenot Creatinine [Mass/Vol] 0.68 mg/dL Normal 0.55-1.02 [facility] Comment on above: Performed By: #### C MP, HSTROPN #### [facility] [address] [place] [address] Dr. Moshe Fontenot EGFR-AF RUSSIAN >60 Normal >=60 [facility] Comment on above: Performed By: #### C MP, HSTROPN #### [facility] [address] [place] [address] Dr. Moshe Fontenot EGFR-NON AF RUSSIAN >60 Normal >=60 [facility] Comment on above: Performed By: #### C MP, HSTROPN #### [facility] [address] [place] [address] Dr. Moshe Fontenot Globulin (S) [Mass/Vol] 2.9 g/dL Normal [facility] Comment on above: Performed By: #### C MP, HSTROPN #### [facility] [address] [place] [address] Dr. Moshe Fontenot Glucose [Mass/Vol] 109 mg/dL Critically high 74-106 [facility] Comment on above: Performed By: #### C TRAY, HSTROPN #### [facility] [address] [place] [address] Dr. Moshe Fontenot Potassium [Moles/Vol] 4.2 mmol/L Normal 3.5-5.1 [facility] Comment on above: Performed By: #### C TRAY, HSTROPN #### [facility] [address] [address] [address] Moshe Fontenot Protein [Mass/Vol] 6.5 g/dL Normal 6.4-8.2 [facility] Comment on above: Performed By: #### C TRAY, HSTROPN #### [facility] [address] [place] [address] Dr. Moshe Fontenot Sodium [Moles/Vol] 135 mmol/L Critically low 136-145 [facility] Comment on above: Performed By: #### C TRAY, HSTROPN #### [facility] [address] [place] [address] Dr. Moshe Fontenot Urea nitrogen [Mass/Vol] 6.0 mg/dL Critically low 7.0-18.0 [facility] Comment on above: Performed By: #### C TRAY, HSTROPN #### [facility] [address] [place] [address] Dr. Moshe Fontenot Urea nitrogen/Creatinine [Mass ratio] 8.8 mg/mg Normal [facility] Comment on above: Performed By: #### C MP, HSTROPN #### [facility] [address] [place] [address] Dr. Moshe Fontenot TROPONIN, HIGH SENSITIVITYon 08-17-2021 HSTROP <4.0 Normal 4.0-51.3 [facility] Comment on above: Result Comment: CUT- OFF POINTS HAVE BEEN ESTABLISHED BASED ON THE FOURTH UNIVERSAL DEFINITIONS OF MYOCARDIAL INFARCTION. THE UPPER REFERENCE LIMIT (URL) OF TROPONIN, DEFINED THE 99TH PERCENTILE OF cTnI DISTRIBUTION IN A REFERENCE POPULATION, HAS BEEN CONFIRMED THE DECISION THRESHOLD FOR MA DIAGNOSIS. Performed By: #### C MP, HSTROPN #### [facility] [address] [address] [address] Moshe Fontenot XR CHEST 2 Von [...] by: ZEYAD DO Date: 2021-08-17 16:13 Normal [facility] MG MAMM SCREEN 3D DARIA CADon 08-11-2021 MG MAMM SCREEN 3D DARIA CAD Patient: SELENA FRANCISCO Exam Date: 08/11/2021 : 1960 Gender:F Ordering : DR SHERON HUTTON PA Admission #: [id number] Family : Order #: [id number] CLICK HERE TO VIEW EXAM RADIOLOGY REPORT [...] Treatments None Family Cancers None LOCATION: [facility] BREAST COMPOSITION: Heterogeneously dense,which may obscure small [...] Waggoner MD on 08/11/2021 at 13:04 Normal [facility] Complete Blood Counton 08-04 Erythrocyte distribution width (RBC) [Ratio] 13.2 % Normal 11.0-15.0 [facility] Comment on above: Performed By: #### T SH, CBC, FT4, LIPD, FT3, CMP #### [facility] [address], [place] [id number] Hematocrit (Bld) [Volume fraction] 42.6 % Normal 35.0-47.0 [facility] Comment on above: Performed By: #### T SH, CBC, FT4, LIPD, FT3, CMP #### [facility] [address], [place] [id number] Hemoglobin (Bld) [Mass/Vol] 14.0 g/dL Normal 11.6-15.5 [facility] Comment on above: Performed By: #### T SH, CBC, FT4, LIPD, FT3, CMP #### [facility] [address], [place] [id number] MCH (RBC) [Entitic mass] 29.2 pg Normal 27.0-33.0 [facility] Comment on above: Performed By: #### T SH, CBC, FT4, LIPD, FT3, CMP #### [facility] [address], [place] [id number] MCHC (RBC) [Mass/Vol] 32.9 g/dL Normal 32.0-36.0 [facility] Comment on above: Performed By: #### T SH, CBC, FT4, LIPD, FT3, CMP #### [facility] [address], [place] [id number] MCV (RBC) [Entitic vol] 89 fL Normal 80-100 [facility] Comment on above: Performed By: #### T SH, CBC, FT4, LIPD, FT3, CMP #### [facility] [address], [place] [id number] Platelet mean volume (Bld) [Entitic vol] 11.60 fL Normal 7.50-12.50 [facility] Comment on above: Performed By: #### T SH, CBC, FT4, LIPD, FT3, CMP #### [facility] [address], [place] [id number] Platelets (Bld) [#/Vol] 115 10*3/uL Low 140-400 [facility] Comment on above: Performed By: #### T SH, CBC, FT4, LIPD, FT3, CMP #### [facility] [address], [place] [id number] RBC (Bld) [#/Vol] 4.80 10*6/uL Normal 3.90-5.20 [facility] Comment on above: Performed By: #### T SH, CBC, FT4, LIPD, FT3, CMP #### [facility] [address], [place] [id number] RDW-SD 43.3 fL Normal 37.0-50.0 [facility] Comment on above: Performed By: #### T SH, CBC, FT4, LIPD, FT3, CMP #### [facility] [address], [place] [id number] WBC (Bld) [#/Vol] 6.6 10*3/uL Normal 3.8-11.0 [facility] Comment on above: Performed By: #### T SH, CBC, FT4, LIPD, FT3, CMP #### [facility] [address], [place] [id number] [facility] 08-04-2021 Albumin [Mass/Vol] 4.3 g/dL Normal 3.6-5.1 [facility] Comment on above: Performed By: #### T SH, CBC, FT4, LIPD, FT3, CMP #### [facility] [address], [place] [id number] Albumin/Globulin [Mass ratio] 2.0 {ratio} Normal 1.0-2.5 [facility] Comment on above: Performed By: #### T SH, CBC, FT4, LIPD, FT3, CMP #### [facility] [address], [place] [id number] ALP [Catalytic activity/Vol] 91 U/L Normal 35-119 [facility] Comment on above: Performed By: #### T SH, CBC, FT4, LIPD, FT3, CMP #### [facility] [address], [place] [id number] ALT [Catalytic activity/Vol] 10 U/L Normal 6-33 [facility] [place] Comment on above: Result Comment: 03/03 Female reference range changed. Performed By: #### T SH, CBC, FT4, LIPD, FT3, CMP #### [facility] [address], [place] [id number] Anion gap [Moles/Vol] 15 mmol/L Normal 12-20 [facility] Comment on above: Result Comment: Effe ctive 04/08/2019 reference range changed. Performed By: #### T SH, CBC, FT4, LIPD, FT3, CMP #### [facility] [address], [place] [id number] AST [Catalytic activity/Vol] 20 U/L Normal 9-34 [facility] Comment on above: Performed By: #### T SH, CBC, FT4, LIPD, FT3, CMP #### [facility] [address], [place] [id number] BUN/CREA 15 Ratio Normal 6-22 [facility] Comment on above: Performed By: #### T SH, CBC, FT4, LIPD, FT3, CMP #### [facility] [address], [place] [id number] Calcium [Mass/Vol] 9.0 mg/dL Normal 8.6-10.2 [facility] Comment on above: Performed By: #### T SH, CBC, FT4, LIPD, FT3, CMP #### [facility] [address], [place] [id number] Chloride [Moles/Vol] 100 mmol/L Normal 98-107 [facility] Comment on above: Performed By: #### T SH, CBC, FT4, LIPD, FT3, CMP #### [facility] [address], [place] [id number] CO2 [Moles/Vol] 25 mmol/L Normal 20-31 [facility] Comment on above: Performed By: #### T SH, CBC, FT4, LIPD, FT3, CMP #### [facility] [address], [place] [id number] Creatinine [Mass/Vol] 0.7 mg/dL Normal 0.6-1.4 [facility] Comment on above: Performed By: #### T SH, CBC, FT4, LIPD, FT3, CMP #### [facility] [address], [place] [id number] eGFRAA 107 mL/min/1.73m2 Normal >60 [facility] Comment on above: Performed By: #### T SH, CBC, FT4, LIPD, FT3, CMP #### [facility] [address] [place], [place] [id number] eGFRNAA 88 mL/min/1.73m2 Normal >60 [facility] [facility] Comment on above: Performed By: #### T SH, CBC, FT4, LIPD, FT3, CMP #### [facility] [address] [place], [place] [id number] Globulin (S) [Mass/Vol] 2.2 g/dL Normal 1.9-3.7 [facility] Specialist Comment on above: Performed By: #### T SH, CBC, FT4, LIPD, FT3, CMP #### [facility] [address] [place], [place] [id number] Glucose [Mass/Vol] 84 mg/dL Normal 65-99 [facility] [employer] Supervisor Comment on above: Result Comment: For FASTING Glucose --- ADA reference ranges: Normal 65-99 mg/dl Prediabetes 100-125 Diabetes >/= 126 Performed By: #### T SH, CBC, FT4, LIPD, FT3, CMP #### [facility] [address] [place], [place] [id number] Potassium [Moles/Vol] 4.4 mmol/L Normal 3.5-5.5 [facility] Specialist Comment on above: Performed By: #### T SH, CBC, FT4, LIPD, FT3, CMP #### [facility] [address] [place], [place] [id number] Protein [Mass/Vol] 6.5 g/dL Normal 6.1-8.1 [facility] [employer] Supervisor Comment on above: Performed By: #### T SH, CBC, FT4, LIPD, FT3, CMP #### [facility] [address] [place], [place] [id number] Sodium [Moles/Vol] 135 mmol/L Normal 135-146 [facility] Preparation Supervisor Comment on above: Performed By: #### T SH, CBC, FT4, LIPD, FT3, CMP #### [facility] [address] [place], [place] [id number] TBIL <0.3 Normal [facility] [employer] Supervisor Comment on above: Performed By: #### T SH, CBC, FT4, LIPD, FT3, CMP #### [facility] [address] [place], [place] [id number] Urea nitrogen [Mass/Vol] 10 mg/dL Normal 7-25 [facility] [employer] Supervisor Comment on above: Performed By: #### T SH, CBC, FT4, LIPD, FT3, CMP #### [facility] [address] [place], [place] [id number] Free T3on 08-04-2021 FT3 2.88 pg/mL Normal 2.00-4.40 [facility] [employer] Supervisor Comment on above: Performed By: #### T SH, CBC, FT4, LIPD, FT3, CMP #### [facility] [address] [place], [place] [id number] Free T4on 08-04-2021 Free T4 [Mass/Vol] 1.23 ng/dL Normal 0.80-1.80 [facility] [employer] Supervisor Comment on above: Performed By: #### T SH, CBC, FT4, LIPD, FT3, CMP #### [facility] [address] [place], [place] [id number] Lipid Panelon 08-04-2021 Cholesterol [Mass/Vol] 129 mg/dL Normal 125-200 [facility] [employer] Supervisor Comment on above: Result Comment: Low risk < 200mg/dL Borderline risk 201-239 mg/dl High risk > or equal to 240 Performed By: #### T SH, CBC, FT4, LIPD, FT3, CMP #### [facility] [address] [place], [place] [id number] Cholesterol in HDL [Mass/Vol] 48 mg/dL Normal >40 [facility] Specialist Comment on above: Result Comment: High Cardiovascular Risk HDL <40 mg/dL Low Cardiovascular Risk HDL > or equal to 60 mg/dl Performed By: #### T SH, CBC, FT4, LIPD, FT3, CMP #### [facility] [address] [place], [place] [id number] Cholesterol in LDL [Mass/Vol] 61 mg/dL Normal [facility] [place] Comment on above: Result Comment: LDL ATP III CLASSIFICATION LDL less than 100 mg/dl Optimal LDL 100-129 mg/dl Near or above optimal LDL 130-159 Borderline high LDL 160-189 High LDL greater than 189 mg/dl Very High Performed By: #### T SH, CBC, FT4, LIPD, FT3, CMP #### [facility] [address] [place], [place] [id number] Cholesterol in VLDL [Mass/Vol] 20 mg/dL Normal [facility] Specialist Comment on above: Performed By: #### T SH, CBC, FT4, LIPD, FT3, CMP #### [facility] [address] [place], [place] [id number] Cholesterol.total/Ch olesterol in HDL [Mass ratio] 3 {ratio} Normal [facility] [place] Comment on above: Performed By: #### T SH, CBC, FT4, LIPD, FT3, CMP #### [facility] [address] [place], [place] [id number] Triglyceride [Mass/Vol] 99 mg/dL Normal 30-150 [facility] Specialist Comment on above: Result Comment: TRIG ATPIII CLASSIFICATIONS TRIG less than 150 mg/dl Normal TRIG 150-199 mg/dl Borderline High TRIG 200-500 mg/dl High TRIG greather than 500 mg/dl Very High Performed By: #### T SH, CBC, FT4, LIPD, FT3, CMP #### [facility] [address] [place], [place] [id number] TSHon 08-04-2021 TSH 1.710 uIU/mL Normal 0.400-4.500 [facility] [employer] Supervisor Comment on above: Performed By: #### T SH, CBC, FT4, LIPD, FT3, CMP #### [facility] [address] [place], [place] [id number] RESPIRATORY PANEL PLUSon Adenovirus Not detected Normal NOT DETECTED [facility] Comment on above: Performed By: #### R SPLUS #### [facility] [address] [place] [address] Dr. Moshe Alanis. Parapertusis Not detected Normal NOT DETECTED [facility] Comment on above: Performed By: #### R SPLUS #### [facility] [address] [place] [address] Dr. Moshe Alanis. Pertussis Not detected Normal NOT DETECTED [facility] Comment on above: Performed By: #### R SPLUS #### [facility] [address] [place] [address] Dr. Moshe Fontenot Chlamydia Pneumoniae Not detected Normal NOT DETECTED [facility] Comment on above: Performed By: #### R SPLUS #### [facility] [address] [place] [address] Dr. Moshe Fontenot Coronavirus 229E Not detected Normal NOT DETECTED [facility] Comment on above: Performed By: #### R SPLUS #### [facility] [address] [place] [address] Dr. Moshe Fontenot Coronavirus HKU1 Not detected Normal NOT DETECTED [facility] Comment on above: Performed By: #### R SPLUS #### [facility] [address] [place] [address] Dr. Moshe Fontenot Coronavirus NL63 Not detected Normal NOT DETECTED [facility] Comment on above: Performed By: #### R SPLUS #### [facility] [address] [place] [address] Dr. Moshe Fontenot Coronavirus OC43 Not detected Normal NOT DETECTED [facility] Comment on above: Performed By: #### R SPLUS #### [facility] [address] [place] [address] Dr. Moshe Fontenot Influenza A H1 2009 Not detected Normal NOT DETECTED [facility] Comment on above: Performed By: #### R SPLUS #### [facility] [address] [place] [address] Dr. Moshe Fontenot Influenza A H3 Not detected Normal NOT DETECTED [facility] Comment on above: Performed By: #### R SPLUS #### [facility] [address] [address] [address] Moshe Fontenot Influenza B Not detected Normal NOT DETECTED [facility] Comment on above: Performed By: #### R SPLUS #### [facility] [address] [place] [address] Dr. Moshe Fontenot Metapneumovirus Not detected Normal NOT DETECTED [facility] Comment on above: Performed By: #### R SPLUS #### [facility] [address] [place] [address] Dr. Moshe Fontenot Mycoplas. Pneumoniae Not detected Normal NOT DETECTED [facility] Comment on above: Performed By: #### R SPLUS #### [facility] [address] [place] [address] Dr. Moshe Fontenot Parainfluenza 1 Not detected Normal NOT DETECTED [facility] Comment on above: Performed By: #### R SPLUS #### [facility] [address] [place] [address] Dr. Moshe Fontenot Parainfluenza 2 Not detected Normal NOT DETECTED [facility] Comment on above: Performed By: #### R SPLUS #### [facility] [address] [place] [address] Dr. Moshe Fontenot Parainfluenza 3 Not detected Normal NOT DETECTED [facility] Comment on above: Performed By: #### R SPLUS #### [facility] [address] [place] [address] Dr. Moshe Fontenot Parainfluenza 4 Not detected Normal NOT DETECTED [facility] Comment on above: Performed By: #### R SPLUS #### [facility] [address] [place] [address] Dr. Moshe Fontenot Rhino/Enterovirus Not detected Normal NOT DETECTED [facility] Comment on above: Performed By: #### R SPLUS #### [facility] [address] [place] [address] Dr. Moshe Fontenot RP2 Header 1 RESPIRATORY PANEL: VIRUSES Normal [facility] Comment on above: Performed By: #### R SPLUS #### [facility] [address] [address] [address] Moshe Fontenot RP2 Header 2 RESPIRATORY PANEL: BACTERIA Normal [facility] Comment on above: Performed By: #### R SPLUS #### [facility] [address] [place] [address] Dr. Moshe Fontenot RSV Not detected Normal NOT DETECTED [facility] Comment on above: Performed By: #### R SPLUS #### [facility] [address] [address] [address] Moshe Fontenot SARS-CoV-2 (COVID-19) RNA BRITTANY+probe Ql (Unsp spec) Not detected Normal NOT DETECTED [facility] Comment on above: Performed By: #### R SPLUS #### [facility] [address] [place] [address] Dr. Moshe Fontenot Basic Metabolic Profileon Anion gap [Moles/Vol] 9.0 mmol/L Low 10.0-15.0 [facility] Comment on above: Performed By: #### 1 015 #### [facility] Unless Otherwise Noted [address] [address] / [facility] #4724/CLIA # [id number] BUN/Cre Ratio 8.3 Ratio Normal 7.0-27.0 [facility] Comment on above: Performed By: #### 1 015 #### [facility] Unless Otherwise Noted [address] [address] / [facility] #4724/CLIA # [id number] Calcium [Mass/Vol] 9.5 mg/dL Normal 8.4-10.2 [facility] Comment on above: Performed By: #### 1 015 #### [facility] Unless Otherwise Noted [address] [address] / [facility] #4724/CLIA # [id number] Chloride [Moles/Vol] 95.0 mmol/L Low 98.0-107.0 End [facility] Comment on above: Performed By: #### 1 015 #### [facility] Unless Otherwise Noted [address] [address] / [facility] #4724/CLIA # [id number] CO2 [Moles/Vol] 26.0 mmol/L Normal 22.0-30.0 [facility] Comment on above: Performed By: #### 1 015 #### [facility] Unless Otherwise Noted [address] [address] / [facility] #4724/CLIA # [id number] Creatinine [Mass/Vol] 0.6 mg/dL Normal 0.5-1.0 [facility] Comment on above: Performed By: #### 1 015 #### [facility] Unless Otherwise Noted [address] [address] / [facility] #4724/CLIA # [id number] GFR/1.73 sq M predicted among blacks MDRD (S/P/Bld) [Vol rate/Area] 131.6 ml/m1.73 Normal [facility] Comment on above: Performed By: #### 1 015 #### [facility] Unless Otherwise Noted [address] [address] / [facility] #4724/CLIA # [id number] GFR/1.73 sq M predicted among non-blacks MDRD (S/P/Bld) [Vol rate/Area] 108.8 ml/m1.73 Normal [facility] Comment on above: Performed By: #### 1 015 #### [facility] Unless Otherwise Noted 2099 [facility] [address] [place] [address] / [facility] #4724/CLIA # [id number] GFR/1.73 sq M predicted among non-blacks MDRD (S/P/Bld) [Vol rate/Area] 104.0 ml/m1.73 Normal [facility] Comment on above: Performed By: #### 1 015 #### [facility] Unless Otherwise Noted [address] [address] / [facility] #4724/CLIA # [id number] Glucose [Mass/Vol] 93.0 mg/dL Normal 74.0-106.0 [facility] Comment on above: Performed By: #### 1 015 #### [facility] Unless Otherwise Noted [address] [address] / [facility] #4724/CLIA # [id number] Potassium [Moles/Vol] 4.5 mmol/L Normal 3.5-5.1 [facility] Comment on above: Performed By: #### 1 015 #### [facility] Unless Otherwise Noted [address] [address] / [facility] #4724/CLIA # [id number] Sodium [Moles/Vol] 130.0 mmol/L Low 137.0-145.0 [facility] Comment on above: Performed By: #### 1 015 #### [facility] Unless Otherwise Noted [address] [address] / [facility] #1424/CLIA # [id number] Urea nitrogen [Mass/Vol] 5.0 mg/dL Low 7.0-17.0 [facility] Comment on above: Performed By: #### 1 015 #### [facility] Unless Otherwise Noted [address] [address] / [facility] #4724/CLIA # [id number] Basic Metabolic Profileon Anion gap [Moles/Vol] 9.0 mmol/L Low 10.0-15.0 [facility] Comment on above: Performed By: #### 1 015 #### [facility] Unless Otherwise Noted [address] [address] / [facility] #4724/CLIA # [id number] BUN/Cre Ratio 15.0 Ratio Normal 7.0-27.0 [facility] Comment on above: Performed By: #### 1 015 #### [facility] Unless Otherwise Noted [address] [address] / [facility] #4724/CLIA # [id number] Calcium [Mass/Vol] 9.9 mg/dL Normal 8.4-10.2 [facility] Comment on above: Performed By: #### 1 015 #### [facility] Unless Otherwise Noted [address] [address] / [facility] #4724/CLIA # [id number] Chloride [Moles/Vol] 97.0 mmol/L Low 98.0-107.0 [facility] Comment on above: Performed By: #### 1 015 #### [facility] Unless Otherwise Noted [address] [address] / [facility] #4724/CLIA # [id number] CO2 [Moles/Vol] 28.0 mmol/L Normal 22.0-30.0 [facility] Comment on above: Performed By: #### 1 015 #### [facility] Unless Otherwise Noted [address] [address] / [facility] #4724/CLIA # [id number] Creatinine [Mass/Vol] 0.8 mg/dL Normal 0.5-1.0 [facility] Comment on above: Performed By: #### 1 015 #### [facility] Unless Otherwise Noted [address] [address] / [facility] #4724/CLIA # [id number] GFR/1.73 sq M predicted among blacks MDRD (S/P/Bld) [Vol rate/Area] 94.7 ml/m1.73 Normal [facility] Comment on above: Performed By: #### 1 015 #### [facility] Unless Otherwise Noted [address] [address] / [facility] #4724/CLIA # [id number] GFR/1.73 sq M predicted among non-blacks MDRD (S/P/Bld) [Vol rate/Area] 83.9 ml/m1.73 Normal [facility] Comment on above: Performed By: #### 1 015 #### [facility] Unless Otherwise Noted [address] [address] / [facility] #4724/CLIA # [id number] GFR/1.73 sq M predicted among non-blacks MDRD (S/P/Bld) [Vol rate/Area] 78.3 ml/m1.73 Normal [facility] Comment on above: Performed By: #### 1 015 #### [facility] Unless Otherwise Noted [address] [address] / [facility] #4724/CLIA # [id number] Glucose [Mass/Vol] 89.0 mg/dL Normal 74.0-106.0 [facility] Comment on above: Performed By: #### 1 015 #### [facility] Unless Otherwise Noted [address] [address] / [facility] #4724/CLIA # [id number] Potassium [Moles/Vol] 5.0 mmol/L Normal 3.5-5.1 [facility] Comment on above: Performed By: #### 1 015 #### [facility] Unless Otherwise Noted [address] [address] / [facility] #4724/CLIA # [id number] Sodium [Moles/Vol] 134.0 mmol/L Low 137.0-145.0 End [facility] Comment on above: Performed By: #### 1 015 #### [facility] Unless Otherwise Noted [address] [address] / [facility] #4724/CLIA # [id number] Urea nitrogen [Mass/Vol] 12.0 mg/dL Normal 7.0-17.0 [facility] Comment on above: Performed By: #### 1 015 #### [facility] Unless Otherwise Noted [address] [address] / [facility] #4724/CLIA # [id number] Vital Signs Date Time Vital Sign Value Performing Clinician Facility 05-01-2024 08:47-0500 Body height 172.7 cm Colin Lee MD Work Phone: [facility] 05-01-2024 08:47-0500 Body mass index (BMI) [Ratio] 20.07 kg/m2 Colin Lee MD Work Phone: [facility] 05-01-2024 08:47-0500 Body temperature 97.3 [degF] Colin Lee MD Work Phone: [facility] 05-01-2024 08:47-0500 Body weight 59.88 kg Colin Lee MD Work Phone: [facility] 05-01-2024 08:47-0500 Diastolic blood pressure 76 mm[Hg] Colin Lee MD Work Phone: [facility] 05-01-2024 08:47-0500 Heart rate 108 /min Colin Lee MD Work Phone: [facility] 05-01-2024 08:47-0500 SaO2% (BldA) [Mass fraction] 73 % Colin Lee MD Work Phone: [facility] Comment on above: post nebs 76 05-01-2024 08:47-0500 Systolic blood pressure 138 mm[Hg] Colin Lee MD Work Phone: [facility] 04-18-2024 13:47-0500 Body height 172.72 cm [facility] 04-18-2024 13:47-0500 Body mass index (BMI) [Ratio] 19 kg/m2 [facility] 04-18-2024 13:47-0500 Body weight 56.69 kg [facility] 02-05-2024 08:54-0500 Body height 172.7 cm Colin Lee MD Work Phone: [facility] 02-05-2024 08:54-0500 Body mass index (BMI) [Ratio] 20.68 kg/m2 Colin Lee MD Work Phone: [facility] 02-05-2024 08:54-0500 Body weight 61.69 kg Colin Lee MD Work Phone: [facility] 02-05-2024 08:54-0500 Diastolic blood pressure 70 mm[Hg] Colin Lee MD Work Phone: [facility] 02-05-2024 08:54-0500 Heart rate 72 /min Colin Lee MD Work Phone: [facility] 02-05-2024 08:54-0500 SaO2% (BldA) [Mass fraction] 92 % Colin Lee MD Work Phone: [facility] 02-05-2024 08:54-0500 Systolic blood pressure 138 mm[Hg] Colin Lee MD Work Phone: [facility] 12-25-2023 08:51-0400 Body height 172.7 cm Colin Lee MD Work Phone: [facility] 12-25-2023 08:51-0400 Body mass index (BMI) [Ratio] 19.46 kg/m2 Colin Lee MD Work Phone: [facility] 12-25-2023 08:51-0400 Body weight 58.06 kg Colin Lee MD Work Phone: [facility] 12-25-2023 08:51-0400 Diastolic blood pressure 78 mm[Hg] Colin Lee MD Work Phone: [facility] 12-25-2023 08:51-0400 Heart rate 82 /min Colin Lee MD Work Phone: [facility] 12-25-2023 08:51-0400 SaO2% (BldA) [Mass fraction] 96 % Colin Lee MD Work Phone: [facility] 12-25-2023 08:51-0400 Systolic blood pressure 138 mm[Hg] Colin Lee MD Work Phone: [facility] 02-07-2022 11:30-0500 Body height 172.72 cm Jacob Frances Other [employer] Other 02-07-2022 11:30-0500 Body mass index (BMI) [Ratio] 22.35 kg/m2 Jacob Frances Other [employer] Other 02-07-2022 11:30-0500 Body weight 66.68 kg Jacob Frances Other [employer] Other 02-07-2022 11:30-0500 Diastolic blood pressure 74 mm[Hg] Jacob Frances Other [employer] Other 02-07-2022 11:30-0500 Systolic blood pressure 114 mm[Hg] Jacob Frances Other [employer] Other 12-13-2018 17:58-0400 Body weight 65.3 Kg [facility] Comment on above: Performed By: #### 1015 #### [facility] Unless Otherwise Noted [address] [place] [address] / [facility] #4724/CLIA # [id number] 05-07-2018 18:41-0500 Body weight 69.4 Kg [facility] Comment on above: Performed By: #### 1015 #### [facility] Unless Otherwise Noted [address] [place] [address] / [facility] #4724/CLIA # [id number] Encounters Encounter Date Encounter Type Care Provider Facility Start: 05-01-2024 End: 05-01-2024 Jesi flowstrevin Lee MD Work Phone: [facility] Start: 05-01-2024 End: 05-03-2024 Elizo flowstrevin Lee MD Work Phone: [facility] Start: 05-01-2024 End: 05-03-2024 [employer]inis[facility] Result Encounter Generic External Data Provider [facility] Department Unsolicited Start: 05-01-2024 End: 05-01-2024 Office outpatient visit 25 minutes Colin Lee MD Work Phone: [facility] Comment on above: COPD exacerbation (C MS/HCC) (Primary Dx); Hypoxia Start: 05-01-2024 End: 05-01-2024 ambulatory COLIN LEE Not Available Start: 04-23-2024 End: 04-23-2024 Refill Colin Lee MD Work Phone: [facility] Comment on above: Panlobular emphysema (CMS/HCC); Generalized osteoarthrosis, involving multiple sites; Degenerative disc disease, lumbar Start: 04-18-2024 End: 04-18-2024 ambulatory [facility] Work Phone: Start: 04-18-2024 End: 04-18-2024 Patient encounter procedure [facility] Work Phone: Start: 03-21-2024 End: 03-21-2024 [...] LEE Not Available Start: 01-23-2024 End: 01-23-2024 Reflauryn Lee MD Work Phone: [facility] [...] multiple sites; Degenerative disc disease, lumbar Start: 03-15-2022 End: 03-16-[address] Zeyad Do Facility: Start: 03-04-2022 End: 03-04-2022 Departed Referred II Colin Lee Work Phone: [facility] [place] Start: 03-04-2022 End: 03-04-2022 ambulatory II Colin Lee Work Phone: [facility] Work Phone: Start: 02-14-2022 End: 02-14-2022 ambulatory Jacob Frances Other [employer] Other Start: 02-14-2022 Telephone encounter [facility] Start: 02-07-2022 End: 02-07-2022 ambulatory Jacob Frances Other [employer] Other Start: 02-07-2022 [facility] visit new patient Jacob Frances [facility] Start: 08-17-2021 End: 08-17-[address] Zeyad Do Facility:[facility] Start: 08-11-2021 End: 08-12-[address] SHERON HUTTON Facility:[facility] Start: 04-14-2021 End: 04-14-[address] COLIN LEE Facility:[facility] Procedures Date Procedure Procedure Detail Performing Clinician Start: 05-01-2024 BLOOD CULTURE 2 Generic External Data Provider Start: 05-01-2024 BLOOD CULTURE 1 Generic External Data Provider Start: 10-09-2023 Mammography Colin lee MD Work [...] [address] [place] [id number] Colin Lee MD [address] [place] [address] [facility] Start: 12-28-2023 End: 12-28-2023 Patient encounter procedure 12/28/2023 8:30 AM EDT Office Visit [facility] [address] [place] [id number] Colin Lee MD [address] [facility] [address] [place] [address] [facility] Start: 12-25-2023 End: 12-24-2024 Comprehensive metabolic 2000 panel - Serum or Plasma Comprehensive metabolic panel Lab Routine Weight loss Diarrhea, unspecified type Expected: 12/25/2023 (Approximate), Expires: 12/24/2024 [facility] Comment on above: Expected: 12/25/2023 (Approximate), Expires: 12/24/2024 Start: 12-25-2023 End: 12-24-2024 TSH W/REFLEX TO FT4 TSH W/REFLEX TO FT4 Lab Routine Weight loss Diarrhea, unspecified type Expected: 12/25/2023 (Approximate), Expires: 12/24/2024 [facility] Work Phone: Comment on above: Expected: 12/25/2023 (Approximate), Expires: 12/24/2024 Start: 12-03-2023 Influenza vaccination Influenza Vacc ine (#1) [facility] Start: 06-21-2023 End: 06-21-2023 Patient encounter procedure 06/21/2023 10:30 AM EDT Office Visit [facility] [address] [facility] [address] [place] [phone] Colin Lee MD [address] [facility] [address] [place] [address] [facility] Start: 12-02-2022 Influenza vaccination Influenza Vacc ine (#1) [facility] [facility] Start: 08-11-2022 Screening for malign ant neoplasm of breast Mammogram [facility] Start: 1960 Screening for malign ant neoplasm of colon [facility] BLOOD CULTURE 1 BLOOD CULTURE 1 Lab Routine 05/01/2024 10:55 AM EST [facility] BLOOD CULTURE 2 BLOOD CULTURE 2 Lab Routine 05/01/2024 11:02 AM EST [facility] CBC W Auto Different ial panel - Blood CBC and differential Lab Routine Weight loss Diarrhea, unspecified type Ordered: 12/25/2023 [facility] Comment on above: Ordered: 12/25/2023 XR Chest 2 Views XR chest 2 view s Imaging Routine Weight loss Panlobular emphysema (CMS/HCC) Chronic cough Ordered: 12/25/2023 [facility] Comment on above: Ordered: 12/25/2023 Immunizations Immunization Date Immunization Notes Care Provider Sonya stewart 02-03-2022 influenza, injectabl e, quadrivalent, preservative free Sri Jaziel [facility] 02-03-2022 influenza virus vacc ine, unspecified formulation Sri [facility] 02-01-2021 influenza, injectabl e, quadrivalent, contains preservative Sri [facility] 01-30-2020 influenza, injectabl e, quadrivalent, preservative free Sri Jaziel [facility] 10-31-2019 pneumococcal polysac charide vaccine, 23 valent Sri [facility] 01-16-2019 Influenza, injectabl e, Madin Corrie Canine Kidney, quadrivalent with preservative Sri Jaziel [facility] 11-05-2018 tetanus toxoid, redu laura diphtheria toxoid, and acellular pertussis vaccine, adsorbed Sri [facility] 01-15-2018 seasonal influenza, intradermal, preservative free Sri Jaziel [facility] [place] 01-11-2017 seasonal influenza, intradermal, preservative free Sri Jaz[facility] Payers Date Payer Category Payer Private Health Insurance [facility] [id number] 2022 Unknown [id number] 2022 Unknown [id number] 2022 Self-pay [id number] 1959 Unknown [id number] 2.16.840.1.045143.3.579. 2.593 1959 Unknown [id number] 2.16.840.1.585946.3.579. 2.593 1959 Unknown [id number] 2.16.840.1.245268.3.579. 2.593 1959 Unknown [id number] 2.16.840.1.559060.3.579. 2.593 1959 Unknown [id number] 2.16.840.1.326440.3.579. 2.1259 1959 Unknown [id number] 2.16.840.1.846425.3.579. 2.1259 1959 Unknown [id number] 2.16.840.1.636085.3.579. 2.1259 1959 Unknown [id number] 2.16.840.1.633490.3.579. 2.1259 1959 Unknown [id number] 2.16.840.1.272367.3.579. 2.1259 1959 Unknown [id number] 2.16.840.1.046348.3.579. 2.1259 1959 Unknown [id number] 2.16.840.1.483328.3.579. 2.1259 1959 Unknown [id number] 2.16.840.1.797771.19 1959 Unknown [id number] Unknown [id number] 2.16.840.1.085523.3.579. 2.531 Social History Date Type Detail Facility Unknown if ever smoked [employer] Other Start: 03-20-2023 End: 05-01-2024 Sex Assigned At [facility] Other Start: 1960 Sex Assigned At Female F [facility] Start: 04-03-1976 Tobacco smoking status ARIS Smokes tobacco daily [facility] Start: 04-03-1976 History of tobacco use Cigarette Smoker [facility] Start: 2022 Tobacco use and exposure Smokeless tobacco non-user [facility] Start: 03-20-2023 End: 05-01-2024 Alcohol intake Ex-drinker (finding) [facility] Start: 03-20-2023 End: 05-01-2024 History of Social function [facility] Start: 1960 Sex Assigned At Not on file N [facility] Start: 04-26-2017 Tobacco smoking status NHIS Smoker (finding) [facility] Start: 04-18-2024 Sex Female (finding) [facility] Clinical Notes 02-07-2022 to 05-01-2024 Colin Lee [...] ordered for chronic cough Last edited by eJssica Hernandez LPN on 05/01/2024 8:54 AM. Subjective [...] AND 1 WEEK OFF* 4 patch 5 Cbtopqnkpiu-Qatnvqyrs-Gxztpr (Trelegy Ellipta) 100-62.5-25 MCG/ACT aerosol powder Inhale 1 puff 1 (one) time each day at the same time. HYDROcodone-acetaminophen (Ellinger) 10-325 MG tablet Take 1 tablet by [...] EMS called and patient was sent to [facility] ER, I called report to the ER. Hypoxia Follow up in about 1 week (around 05/08/2024) for Recheck. documented in this encounter [facility] 04-23-2024 Telephone encount er Note OARRS reviewed, Rx sent into patient's pharmacy. [facility] 04-23-2024 Miscellaneous Notes Formattin g of this note might be different from the original. OARRS reviewed, Rx sent into patient's pharmacy. documented in this encounter [facility] 03-21-2024 Telephone encount er Note Last OV 02-04-23 Last refill 02-22-24 [facility] 03-21-2024 Miscellaneous Notes Formattin g of this note might be different from the original. Last OV 02-04-23 Last refill 02-22-24 documented in this encounter [facility] 02-22-2024 Telephone encount er Note OARRS reviewed, Rx sent into patient's pharmacy. [facility] 02-22-2024 Miscellaneous Notes Formattin g of this note might be different from the original. OARRS reviewed, Rx sent into patient's pharmacy. HYDROcodone-acetaminophen (Ellinger) 10-325 MG tablet to [facility] documented in this encounter [facility] 02-22-2024 Telephone encount er Note HYDROcodone-acetaminophen (Ellinger) 10-325 MG tablet to [facility] 02-05-2024 History of Presen t illness [...] AND 1 WEEK OFF* 4 patch 5 Yzvcugmngsn-Zebxoneum-Gygdlv (Trelegy Ellipta) 100-62.5-25 MCG/ACT aerosol powder Inhale 1 puff 1 (one) time each day at the same time. HYDROcodone-acetaminophen (Ellinger) 10-325 MG tablet Take 1 tablet by [...] History: Procedure Laterality Date APPENDECTOMY BREAST BIOPSY 2006 HYSTERECTOMY SPINE SURGERY Visit Vitals BP 138/70 [...] mL/min/1.73m2 Final BUN/CREATININE RATIO 12/25/2023 SEE NOTE: (calc) Final Comment: Not Reported: BUN and [...] months (around 04/06/2024). documented in this encounter [facility] 01-23-2024 Telephone encount er Note OARRS reviewed, Rx sent into patient's pharmacy. [facility] 01-23-2024 Miscellaneous Notes Formattin g of this note might be different from the original. OARRS reviewed, Rx sent into patient's pharmacy. HYDROcodone-acetaminophen (Ellinger) 10-325 MG tablet [ [facility] documented in this encounter [facility] 01-23-2024 Telephone encount er Note HYDROcodone-acetaminophen (Ellinger) 10-325 MG tablet [ [facility] 12-25-2023 History of Presen t illness [...] AND 1 WEEK OFF* 4 patch 5 Tjgcetosdfu-Sukwyxttm-Fovtzf (Trelegy Ellipta) 100-62.5-25 MCG/ACT aerosol powder Inhale [...] by mouth in the morning. [DISCONTINUED] HYDROcodone-acetaminophen (Ellinger) 10-325 MG tablet Take 1 tablet by [...] Allergic rhinitis Anxiety Arthritis Bile duct stricture 2017 Cervical cancer (CMS/HCC) Hyperlipemia (CMS/HCC) Hypertension (CMS/HCC) [...] Generalized osteoarthrosis, involving multiple sites - HYDROcodone-acetaminophen (Ellinger) 10-325 MG tablet; Take 1 tablet by [...] patient. Degenerative disc disease, lumbar - HYDROcodone-acetaminophen (Ellinger) 10-325 MG tablet; Take 1 tablet by [...] for Test/Lab Review. documented in this encounter [facility] 11-23-2023 Telephone encount er Note HYDROcodone-acetaminophen (Ellinger) 10-325 MG tablet [facility] 11-23-2023 Miscellaneous Notes Formattin g of this note might be different from the original. HYDROcodone-acetaminophen (Ellinger) 10-325 MG tablet [facility] documented in this encounter [facility] 05-17-2023 Telephone encount er Note OARRS reviewed, Rx sent into patient's pharmacy. [facility] 05-17-2023 Miscellaneous Notes Formattin g of this note might be different from the original. OARRS reviewed, Rx sent into patient's pharmacy. documented in this encounter [facility] 03-15-2022 Note PROCEDURE: XR ANKLE RT [...] authenticated by: ZEYAD DO Date: 2022-03-15 17:03 [facility] 03-15-2022 Note PROCEDURE: XR ANKLE RT [...] authenticated by: ZEYAD DO Date: 2022-03-15 17:03 [facility] 02-07-2022 Evaluation note Encounter Date Diagnosis Assessment Notes Feb, Diarrhea (ICD-10 - R19.7) Obtain records from Dr. Lee. Records release signed by patient. [employer] Other Evaluation noteNo InformationNort [employer] Other Evaluation noteNo assessment information available [facility] Work Phone: Evaluation note* Diagnosis Generalized osteoarthrosis, [...] Musculoskeletal pain acute [place] [facility] 2024 1:43pm [facility] Work Phone: Evaluation note* Diagnosis Panlobular emphysema (CMS/HCC) Other emphysema Generalized osteoarthrosis, involving multiple sites Degenerative disc disease, lumbar [facility] COPD [facility]ation ([facility] Primary Obstructive chronic bronchitis with exacerbation Hypoxia Hypoxemia [facility] [...] see above Hospitalization History small bowel obstruction [employer] Other Reason for referral (narrative)* Consultation (Routine) - Pending Review Specialty Diagnoses / Procedures Referred By Contjohanna cuevas Referred To Contact Gastroenterology Diagnoses Diarrhea, unspecified type Procedures TX OFFICE/OUTPATIENT [facility] 60 MINUTES Colin Lee MD [address] [place] [address] Referral ID Status Reason Start Date Expiration Date Visits Requested Visits Authorized [id number] Pending Review Specialty Services Required 12/25/2023 06/22/2024 [...] Date est/referred by Dr Lee- diarrhea Candelario ry 2024 1:43pm Reason for Visit Admit Date Change in bowel habits April 18 1:43pm Diarrhea April 18, 2024 1 :43pm Musculoskeletal pain April 18, 2024 1:43pm Additional Source Comments INFORMATION SOURCE (unrecogn ized section and content) DATE CREATED AUTHOR 12/13/2018 [facility] DATE CREATED AUTHOR AUTHOR'S ORGANIZ ATION 08/06/2021 [facility] dical Specialist DATE CREATED AUTHOR AUTHOR'S ORGANIZ ATION 03/25/2022 [facility] DATE CREATED AUTHOR AUTHOR'S ORGANIZ ATION 12/29/2023 [facility] DATE CREATED AUTHOR AUTHOR'S ORGANIZ ATION 05/02/2024 [facility] dical Specialists EPIC REASON FOR VISIT (unrecogniz [...] Pain med Hypertension Results 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 URI Care Teams (unrecognized sec [...] Provider Active Colin Mann Attending Provider Active President & Ceo Relationship Specialty Start Date End Date Colin Lee MD [address] [place] [address] PCP - General Internal Medicine 09/07/22 President & Ceo Relationship Specialty Start Date End Date Colin Lee MD [address] [place] [address] PCP - General Internal Medicine 09/07/22 President & Ceo Relationship Specialty Start Date End Date Colin Lee MD [address] [place] [address] PCP - General Internal Medicine 09/07/22 President & Ceo Relationship Specialty Start Date End Date Colin Lee MD [address] [place] [address] PCP - General Internal Medicine 09/07/22 President & Ceo Relationship Specialty Start Date End Date Colin Lee MD [address] [facility] [address] [place] [address] PCP - General Internal Medicine 09/07/22 President & Ceo Relationship Specialty Start Date End Date Colin Lee MD [address] [facility] [address] [place] [address] PCP - General Internal Medicine 09/07/22 President & Ceo Relationship Specialty Start Date End Date Colin Lee MD [address] [facility] [address] [place] [address] PCP - General Internal Medicine 09/07/22 Goals [...] BE BASED ON THE PRIMARY CLINICAL RECORDS. [employer] [facility]. provides no warranty or guarantee of the accuracy or completeness of information in this document.
--- NOTE | 2024-05-09 10:38 | PC.NURSE ---
Patient reports pain and bruising to lower abdomen, dark blue bruising noted to lower abdomen and to right flank area, patient reports unsure how bruising happened. Abdomen is soft and tender to touch, bowel sounds present in all quadrants, reports last BM 4-5 days ago. Denies any blood in urine or stool.
--- NOTE | 2024-05-09 10:42 | CT_ITS ---
[facility] [place] [id number] Patient Name: MATTHEW FRANCISCO MRN: [id number] date: 1960 Sex: F Assigned Patient Location: ER Current Patient Location: Accession/Order Number: [id number] Exam Date: 05/09/2024 11:35 Report Date: 05/09/2024 12:12 At the request of: ANITA WAN Procedure: CT abdomen pelvis w con EXAMINATION: CT abdomen pelvis w con HISTORY: abd bruising COMPARISON: No relevant comparison available. TECHNIQUE: CT images were created with IV contrast. Axial, Coronal, and Sagittal images. Dose reduction techniques were achieved by using automated exposure control and/or adjustment of mA and/or kV according to patient size and/or use of iterative reconstruction technique. FINDINGS: LUNG BASES: Linear opacities, atelectasis. Coronary atherosclerosis LIVER: Punctate calcifications, prior granulomatous process favored BILIARY: Contracted gallbladder without evidence of acute cholecystitis PANCREAS: No lesion, fluid collection, ductal dilatation, or atrophy. SPLEEN: No enlargement or focal lesion. ADRENALS: No mass or enlargement. KIDNEYS: No mass, obstruction, or calcification. BOWEL/MESENTERY: Overall nonobstructive bowel gas pattern. Moderate amount of stool in the right colon. AORTA/VASCULAR: Extensive calcific atherosclerosis with no aortic aneurysm RETROPERITONEUM: No mass or adenopathy. LYMPH NODES: No adenopathy. URINARY BLADDER: No visible focal wall thickening, lesion, or calculus. PELVIC ORGANS: Hysterectomy ABDOMINAL WALL: There is heterogeneous soft tissue attenuation identified within the right lateral rectus abdominous muscle measuring 11.6 x 3.2 cm axial image #55, hemorrhage is favoredr. Similar soft tissue identified in the left rectus abdominous muscle measuring 5.4 x 2.2 cm in axial image #70. Moderate stranding of subcutaneous tissues is observed BONES: No bony lesion or fracture. OTHER: Negative. CT/CT abdomen pelvis w con IMPRESSION: Likely hemorrhage into the right lateral rectus and left abdominal rectus muscles Stranding of the subcutaneous tissues, consider third spacing of fluid No acute intraperitoneal abnormality Electronically authenticated by: KURT ALARCON Date: 05/09/2024 12:12
[2024-05-09 11:04] LABS: Basophils Percent Auto 0.2 % (0.2-2.0); Eosinophils Absolute Auto 0.1 10^3/uL (0.0-0.7); Eosinophils Percent Auto 0.8 % (0.9-7.0); Hematocrit 34.8 % (36.0-48.0); Hemoglobin 11.8 g/dL (12.0-16.0); Immature Granulocytes Abs Auto 0.44 10^3/uL (0.00-0.03); Immature Granulocytes Pct Auto 3.4 % (0.0-0.5); Lymphocytes Absolute Auto 1.7 10^3/uL (1.2-3.8); Lymphocytes Percent Auto 13.3 % (20.5-60.0); Mean Corpuscular HGB Conc 33.9 g/dL (29.9-35.2); Mean Corpuscular Hemoglobin 29.4 pg (26.7-34.0); Mean Corpuscular Volume 86.8 fL (81.0-99.0); Mean Platelet Volume 10.2 fL (9.5-13.5); Monocytes Absolute Auto 0.8 10^3/uL (0.3-0.8); Neutrophils Percent Auto 76.3 % (43.0-75.0); Platelet Count 180 10^3/uL (150-450); Red Blood Count 4.01 10^6/uL (4.20-5.40); Red Cell Distribution Width 13.8 % (11.0-15.0)
[2024-05-09 11:15] LABS: INR 1.04
--- NOTE | 2024-05-09 11:18 | ED_ITS ---
HPI HPI - General Adult General Chief complaint: Abdominal Pain Stated complaint: ABDOMINAL BRUISING Time Seen by Provider: 05/09/24 10:31 Source: patient Mode of arrival: walk-in History of Present Illness HPI narrative: Patient presents to ED complaining of abdominal bruising. Patient was recently in the hospital for acute hypoxia and respiratory failure. She states she was not on any blood thinner was not given blood thinner shots or injections of any kind. She said she was on antibiotics. She said she still had a cough and right before she left the hospital she was coughing and using a lot of her abd ominal muscles. She said it was getting sore and a little swollen. She said she did not hear anything pop or noticed anything. However over the past couple of days she has had a lot of bruising extending across her abdomen and onto her right flank. She denies any fall leaning against anything getting injured or hurt in any way. She reports that it is sore but not unbearable pain. She denies any lightheadedness or dizziness. Again denies any blood thinner use. Related Data Home Medications ?Medication ?Instructions ?Recorded ?Confirmed albuterol sulfate 2.5 mg/3 mL 2.5 mg inhalation Q6H PRN 05/01/24 05/09/24 (0.083 %) solution for nebulization shortness of breath or wheezing albuterol sulfate 90 mcg/actuation 2 puff inhalation Q6H PRN 05/01/24 05/09/24 aerosol inhaler shortness of breath or wheezing amlodipine 5 mg-olmesartan 20 mg 1 tab PO DAILY 05/01/24 05/09/24 tablet estradiol 0.05 mg/24 hr weekly 1 patch transdermal QWEEK 05/01/24 05/09/24 transdermal patch hydrocodone 10 mg-acetaminophen 1 tab PO Q6H PRN pain 05/01/24 05/09/24 325 mg tablet ipratropium bromide 42 mcg (0.06 1 spray intranasal BID 05/01/24 05/09/24 %) nasal spray naproxen 375 mg tablet 375 mg PO Q12H 05/01/24 05/09/24 ondansetron HCl 4 mg tablet 4 mg PO Q8H PRN nausea and vomiting 05/01/24 05/09/24 simvastatin 20 mg tablet 20 mg PO DAILY 05/01/24 05/09/24 prednisone 10 mg tablet 10 mg PO Q6H 05/09/24 05/09/24 Previous Rx's ?Medication ?Instructions ?Recorded cefdinir 300 mg capsule 300 mg PO BID 10 days #20 caps 05/04/24 levofloxacin 750 mg tablet 750 mg PO DAILY 7 days #7 tabs 05/04/24 prednisone 10 mg tablets in a dose 10 mg PO DAILY #39 ea 05/04/24 pack Allergies Allergy/AdvReac Type Severity Reaction Status Date / Time Penicillins Allergy Swelling Verified 05/01/24 10:39 of Lip/Tongue/Throat Opioid HPI Opioid Management Most Recent Opioid Data: Last Pain Scale 3 05/04/24 15:00 05/04/24 Last Pain Assessment 05/04/24 15:00 Last ORT Total Score 7 05/01/24 14:06 05/01/24 Last ORT Risk Category Moderate Risk 05/01/24 14:06 05/01/24 Review of Systems ROS Status of ROS 10 or more systems reviewed and unremark able except as noted in history and below [facility] Medical History (Updated 05/09/24 @ 13:11 by Mandie Mckeon DO) Acute hypoxemic respiratory failure ?J96.01 - Acute respiratory failure with hypoxia (ICD-10) COPD with acute exacerbation ?J44.1 - Chronic obstructive pulmonary disease with (acute) exacerbation (ICD-10) Benign essential hypertension ?I10 - Essential (primary) hypertension (ICD-10) Hypoxia ?R09.02 - Hypoxemia (ICD-10) COPD (chronic obstructive pulmonary disease) ?J44.9 - Chronic obstructive pulmonary disease, unspecified (ICD-10) Cervical cancer ?C53.9 - Malignant neoplasm of cervix uteri, unspecified (ICD-10) COPD (chronic obstructive pulmonary disease) ?J44.9 - Chronic obstructive pulmonary disease, unspecified (ICD-10) Hyponatremia ?E87.1 - Hypo-osmolality and hyponatremia (ICD-10) Surgical History (Updated 05/01/24 @ 14:18 by Ashleigh Hammer) History of spinal surgery ?Z98.890 - Other specified postprocedural states (ICD-10) History of arthroscopy of knee ?Z98.890 - Other specified postprocedural states (ICD-10) History of hysterectomy ?Z90.710 - Acquired absence of both cervix and uterus (ICD-10) Social History Highest level of school completed/degree received: some college, no degree Little interest or pleasure in doing things: not at all Feeling down, depressed, or hopeless: not at all Exam Narrative Exam Narrative: Time Seen: [] Vital Signs: [Per nurse's notes.] General: [Alert] Skin: [Warm, dry, no rash.] Extensive ecchymosis on the abdomen lower abdomen and extending around to the right flank. Head: [Normocephalic, atraumatic.] Neck: [Supple, trachea midline.] Eye: [Pupils are equal, round and reactive to light, extraocular movements are intact, normal conjunctiva.] Ears, nose, mouth and throat: oral mucosa moist. Cardiovascular: [Regular rate and rhythm, no murmur.] Respiratory: [Lungs are diminished bilateral bases respirations are non- labored, breath sounds are equal.] Gastrointestinal: [Soft, mild diffuse abdominal tenderness, non distended, normal bowel sounds.] MSK: 5 out of 5 muscle strength x 4 extremities no calf pain or edema Lymphatics: [No lymphadenopathy.] Psychiatric: [Cooperative, appropriate mood & affect.] Neurological: [Alert and oriented to person, place, time, and situation, no focal neurological deficit observed.] Constitutional Vital Signs, click to edit/add: Last Vital Signs Temp 98.1 F 05/09/24 10:31 Pulse 89 05/09/24 10:31 Resp 18 05/09/24 10:31 BP 120/75 05/09/24 13:00 Pulse Ox 94 L 05/09/24 13:01 O2 Del Method Room Air 05/09/24 10:31 Course Vital Signs Vital signs: Vital Signs Temperature 98.1 F 05/09/24 10:31 Pulse Rate 89 05/09/24 10:31 Respiratory Rate 18 05/09/24 10:31 Blood Pressure 178/78 H 05/09/24 10:31 Pulse Oximetry 94 L 05/09/24 10:31 Oxygen Delivery Method Room Air 05/09/24 10:31 Temperature 98.1 F 05/09/24 10:31 Pulse Rate 89 05/09/24 10:31 Respiratory Rate 18 05/09/24 10:31 Blood Pressure 120/75 05/09/24 13:00 Pulse Oximetry 94 L 05/09/24 13:01 Oxygen Delivery Method Room Air 05/09/24 10:31 Medical Decision Making MDM Narrative Medical decision making narrative: Patient CT scan shows hemorrhage in the rectus abdominis. This would account for her ecchymosis around the abdomen and flank. She is also had a 3 point drop in her hemoglobin. I called and spoke to Dr. Malhotra at the trauma surgeon at [facility] and he accepts the patient as a trauma consult from the ER to ER. Patient will be sent via EMS to [facility] ER. Patient is comfortable with care plan and she is stable here in ED Differential Diagnosis Differential Diagnosis: Bleed, contusion, anemia Lab Data Lab results reviewed: Yes I reviewed the patient's lab results Labs: Lab Results 05/09/24 Range/Units 10:55 WBC 13.0 H (4.0-11.0) 10^3/uL RBC 4.01 L (4.20-5.40) 10^6/uL Hgb 11.8 L (12.0-16.0) g/dL Hct 34.8 L (36.0-48.0) % MCV 86.8 (81.0-99.0) fL MCH 29.4 (26.7-34.0) pg MCHC 33.9 (29.9-35.2) g/dL RDW 13.8 (11.0-15.0) % Plt Count 180 (150-450) 10^3/uL MPV 10.2 (9.5-13.5) fL Neut % (Auto) 76.3 H (43.0-75.0) % Lymph % (Auto) 13.3 L (20.5-60.0) % [place] % (Auto) 6.0 (1.7-12.0) % Eos % (Auto) 0.8 L (0.9-7.0) % Baso % (Auto) 0.2 (0.2-2.0) % Neut # (Auto) 10.0 H (1.4-6.5) 10^3/uL Lymph # (Auto) 1.7 (1.2-3.8) 10^3/uL [place] # (Auto) 0.8 (0.3-0.8) 10^3/uL Eos # (Auto) 0.1 (0.0-0.7) 10^3/uL Baso # (Auto) 0.0 (0.0-0.1) 10^3/uL Abs Immat Gran (auto) 0.44 H (0.00-0.03) 10^3/uL Imm/Tot Granulo (auto) 3.4 H (0.0-0.5) % PT 11.0 (9.0-11.6) sec INR 1.04 Sodium 135 L (136-145) mmol/L Potassium 3.7 (3.5-5.1) mmol/L Chloride 96 L (98-107) mmol/L Carbon Dioxide 34.1 H (21.0-32.0) mmol/L Anion Gap 8.6 BUN 12.0 (7.0-18.0) mg/dL Creatinine 0.78 (0.55-1.02) mg/dL Est GFR ( Amer) >60 (>=60 mL/min/1.73m^2) Est GFR (Non-Af Amer) >60 (>=60 mL/min/1.73m^2) BUN/Creatinine Ratio 15.4 Glucose 101 (74-106) mg/dL Calcium 8.6 (8.5-10.1) mg/dL Total Bilirubin 0.4 (0.2-1.0) mg/dL AST 19 (15-37) U/L ALT 18 (14-59) U/L Alkaline Phosphatase 64 (46-116) U/L Total Protein 5.7 L (6.4-8.2) g/dL Albumin 2.8 L (3.4-5.0) g/dL Globulin 2.9 g/dL Albumin/Globulin Ratio 1.[address] scan - abdomen: Radiologist's impression: ITS Impressions Abdomen/Pelvis CT 05/09/24 10:42 IMPRESSION: Likely hemorrhage into the right lateral rectus and left abdominal rectus muscles Stranding of the subcutaneous tissues, consider third spacing of fluid No acute intraperitoneal abnormality Electronically authenticated by: KURT ALARCON Date: 05/09/2024 12:12 Discharge Plan Discharge Chief Complaint: Abdominal Pain Clinical Impression: Abdominal hemorrhage, Anemia Patient Disposition: [facility] Time of Disposition Decision: 13:11 Discharge Location: [facility] Mode of Transportation: EMS
[2024-05-09 11:21] LABS: Alanine Aminotransferase 18 U/L (14-59); Albumin Level 2.8 g/dL (3.4-5.0); Alkaline Phosphatase 64 U/L (46-116); Anion Gap 8.6; Aspartate Amino Transferase 19 U/L (15-37); BUN Creatinine Ratio 15.4; Bilirubin Total 0.4 mg/dL (0.2-1.0); Calcium 8.6 mg/dL (8.5-10.1); Carbon Dioxide 34.1 mmol/L (21.0-32.0); Chloride 96 mmol/L (98-107); Estimated GFR (African America >60 (>=60 mL/min/1.73m^2); Estimated GFR (Non-African Ame >60 (>=60 mL/min/1.73m^2); Globulin 2.9 g/dL; Glucose 101 mg/dL (74-106); Potassium 3.7 mmol/L (3.5-5.1); Sodium 135 mmol/L (136-145); Total Protein 5.7 g/dL (6.4-8.2)
--- NOTE | 2024-05-09 14:14 | PC.NURSE ---
[facility] arrives at this time for transport.
== END 2024-05-09 14:41 | disposition short-term general hospital (02) ==
PROVIDERS: Emergency Provider Emergency Medicine; PCP Internal Medicine
DX: M79.81 Nontraumatic hematoma of soft tissue (principal); D64.9 Anemia, unspecified; Z90.710 Acquired absence of both cervix and uterus
CPT/HCPCS: 36415; 74177; 80053; 85025; 85610; 99285; Q9967

== ENCOUNTER 2024-07-18 14:43 | Outpatient (OUT) | payer OTHER, SELFPAY ==
--- NOTE | 2024-07-18 15:01 | XR_ITS ---
The [address] [address] Patient Name: MATTHEW FRANCISCO MRN: [id number] date: 1960 Sex: F Assigned Patient Location: [facility] Current Patient Location: [facility] Accession/Order Number: [id number] Exam Date: 07/18/2024 16:18 Report Date: 07/18/2024 16:20 At the request of: DEMETRIUS SAM Procedure: XR chest 2V Plain film chest Single view HISTORY: Shortness of breath COMPARISON: 05/01/2024 FINDINGS: SUPPORT DEVICES: None POSTSURGICAL CHANGES: None HEART: Within normal limits PULMONARY IVY: Within normal limits MEDIASTINUM: Unremarkable LUNGS AND PLEURA: No acute lung process, pleural effusion or pneumothorax identified. Chronic right basilar pleural-parenchymal changes with tenting of the diaphragm. BONY STRUCTURES: Intact ADDITIONAL FINDINGS None XR/XR chest 2V IMPRESSION: No acute process. Impression dictated by: Luiz Hough M.D.07/18/2024 4:20 PM Dictation Location: [place] [address] Electronically authenticated by: [id number] Y Date: 07/18/2024 16:20
== END 2024-07-18 14:44 | disposition home or self-care (01) ==
LOC: RAD 14:54
PROVIDERS: PCP Internal Medicine; Visit Provider Nurse Practitioner Family
DX: R06.02 Shortness of breath (principal); R09.02 Hypoxemia
CPT/HCPCS: 71046